=== PATIENT | female | born 1935 | race Caucasian/White ===

== ENCOUNTER 2016-11-05 18:12 | Inpatient (IN) ==
[2016-11-05] MEDS ORDERED: diphenhydrAMINE 50 MG/1 ML VIAL ONE (18:22)
[2016-11-05] MEDS ORDERED: FUROSEMIDE 40 MG/4 ML VIAL ONE (18:22)
[2016-11-05] MEDS ORDERED: FUROSEMIDE 20 MG/2 ML VIAL ONE (18:22)
[2016-11-05] MEDS ORDERED: FAMOTIDINE 20 MG/2 ML VIAL IV ONE (18:22)
[2016-11-05] MEDS ORDERED: methylPREDNISolone SOD SUC 125 MG/2 ML VIAL ONE (18:22)
[2016-11-05] MEDS ORDERED: FUROSEMIDE 100 MG/10 ML VIAL IV STA (18:25)
[2016-11-05] MEDS ORDERED: diphenhydrAMINE 50 MG/1 ML VIAL IV STA ×2 (18:25→18:26)
[2016-11-05] MEDS ORDERED: FAMOTIDINE 20 MG/2 ML VIAL IV STA ×2 (18:25→18:26)
[2016-11-05] MEDS ORDERED: LEVOFLOXACIN INJ 500 MG in PREMIX 1 EACH IV STA (18:25)
[2016-11-05] MEDS ORDERED: ASPIRIN 325 MG TABLET PO STA (18:25)
[2016-11-05] MEDS ORDERED: ONDANSETRON 4 MG/2 ML VIAL IV STA (18:25)
[2016-11-05] MEDS ORDERED: FUROSEMIDE 40 MG/4 ML VIAL IV STA (18:26)
[2016-11-05] MEDS ORDERED: methylPREDNISolone SOD SUC 125 MG/2 ML VIAL IV STA (18:26)
[2016-11-05] MEDS ORDERED: ALBUTEROL 2.5 MG/3 ML NEB RESP TX SCH (18:30)
--- NOTE | 2016-11-05 18:37 | EKG Report ---
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
[2016-11-05 18:43] LABS: Basophils % 0.1 % (0.0-0.8); Hematocrit 39.3 VOL% (35.7-47.0); Hemoglobin 12.4 GM/DL (12.0-16.0); Immature Granulocytes % 0.5 %; Immature Granulocytes Absolute 0.07 #; Lymphocytes # 1.3 10*3/uL (1.4-4.0); Lymphocytes % 9.2 % (21.3-54.2); Mean Corpuscular HGB Conc 31.6 GM/DL (32-36); Mean Corpuscular Hemoglobin 27 PG (27-34); Mean Corpuscular Volume 84.9 FL (87-102); Monocytes # 0.8 10*3/uL (0.11-0.8); Monocytes % 5.7 % (1.7-12.7); Neutrophils # 11.8 10*3/uL (1.4-7.4); Neutrophils % 84.5 % (38.7-73.9); Platelet Count 183 10*3/uL (130-400); Red Blood Count 4.63 10*6/uL (3.8-5.5); Red Cell Distribution Width 14.8 % (9.3-17.3)
[2016-11-05] MEDS ORDERED: LEVOFLOXACIN INJ 100 ML IV ONE (18:43)
[2016-11-05] MEDS ORDERED: ONDANSETRON 4 MG/2 ML VIAL ONE (18:43)
[2016-11-05] MEDS ORDERED: ASPIRIN 325 MG TABLET ONE (18:43)
[2016-11-05 18:52] LABS: ABG Base Excess 2.5 MMOL/L (-2.5-2.5); ABG HCO3 30.1 MMOL/L (20-26); ABG Oxygen Saturation 95.9 % (95-100); ABG PCO2 60.1 MM HG (35-48); ABG PH 7.317 (7.35-7.45); ABG PO2 89.6 MM HG (80-95); ABG TCO2 31.9 MMOL/L (23-27)
[2016-11-05 18:53] LABS: Apearance,Urine CLEAR (Clear); Bacteria,Urine Occasional /HPF (Few); Bilirubin,Urine Negative (Negative); Blood, Urine Negative (Negative); Glucose,Urine (UA) Negative (Negative); Hyaline Casts,Urine 34 /LPF (0-3); INR 1.5; Ketones,Urine Negative (Negative); Mucus,Urine Occasional /LPF (Occasional); Nitrite,Urine Negative (Negative); PT Patient Result 16.7 SECS; Protein,Urine Negative; RBC,Urine <1 /HPF (0-4); Squamous Epithelial Cell,Urine Occasional /HPF (0-10); Urine Color Yellow (Yellow); Urine Specific Gravity 1.009 (1.001-1.035); Urine Urobilinogen < 2.0 EU/DL (0.2-1.0); WBC,Urine 1 /HPF (0-6)
--- NOTE | 2016-11-05 19:00 | XRay Report ---
XR chest 1V portable Indication: Shortness of breath Comparison: Chest x-ray 08/01/2016 Technique: Portable AP chest was performed. Findings: Respiratory apparatus overlies the right chest. Compared to the previous study, there's been interval clearing of the lung bases. Coarsened interstitial markings noted bilaterally likely in part chronic. Pulmonary arteries appear enlarged suggesting possible pulmonary arterial hypertension. Heart size is stable and appears upper limits of normal in size. Bones and soft tissues demonstrate no acute findings. Enchondroma within the right humeral neck is suggested and rotator cuff tear on the right is suggested. Impression: 1. Improved appearance the lung bases since comparison study. Coarsened bilateral interstitial markings likely in part chronic. No specific evidence of acute pathology is demonstrated within the chest. 11/05/2016 6:56 PM PROCEDURE INTERPRETED AT [facility] DEPARTMENT OF RADIOLOGY Final Report Signed by: Dr. Roberto Sanderson
--- NOTE | 2016-11-05 19:26 | Emergency Department Note ---
I, Lisa Palacios, am scribing for, and in the presence of, Slim Segal MD 18:38. ILuzma Charles R, MD, personally performed the services described in this documentation, ascribed by Lisa Palacios in my presence, and it is both accurate and complete 922 . Arrival - Arrival Chief Complaint: Shortness of Breath ED Nursing Triage Note: c/o sob about 1630 today. cough for a week. 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 pt has hives all over body Mode of Arrival: Stretcher Limitations: No Limitations Source: Patient, EMS Time Seen by Provider: 11/05/16 18:19 - History of Present Illness HPI Narrative: Pt is a 80 y/o female that was brought to ED via EMS with c/o SOB that began a few hours ago. Pt has associated sxs of left eye swelling, bilateral leg tenderness, fever, cough, wheezing, and allergic welts diffusely. Pt states she used to smoke years ago but denies any history of DM or fluid ever being taken off body. Doctor had code talk with pt if intubation is needed, pt agrees but only at last resort. No other complaints/pain in ED. Pt has PMHx of HTN, CHF, SC , Thyroid disorder, RA, Obstructive sleep apnea, COPD, Pneumonia, HEP, Osteoporosis, anemia, and reproductive CA. Onset (ago): day(s) Consistency: constant Quality: other Allergies/Adverse Reactions: Allergies Allergy/AdvReac Type Severity Reaction Status Date / Time meperidine [From Demerol] Allergy ITCHING Verified 11/27/15 13:32 Penicillins Allergy RASH Verified 11/27/15 13:32 Sulfa (Sulfonamide Allergy RASH Verified 11/27/15 13:32 Antibiotics) tetanus toxoid, adsorbed Allergy ANAPHYLAXIS Verified 11/27/15 13:32 hydrocodone [From Lortab] AdvReac Nausea Verified 11/27/15 13:32 morphine AdvReac Hypotension Verified 11/27/15 13:32 pentazocine [From Talwin] AdvReac Hallucinati Verified 11/27/15 13:32 ng Home Medications: Home Medications Medication Instructions Recorded Confirmed Type Albuterol Sulfate [Ventolin HFA] 2 puff INH Q4H PRN 11/27/15 11/05/16 History Omeprazole [Prilosec] 20 mg PO DAILY 11/27/15 11/05/16 History Polyvinyl Alcohol 1.4% Oph Saray 2 drop BOTH EYES Q6H PRN 11/27/15 11/05/16 History [Artificial Tears Oph Soln] Propylthiouracil 50 mg PO BID 11/27/15 11/05/16 History Albuterol/Ipratropium Neb [Duoneb] 3 ml RESP TX RT Q6H PRN 12/13/15 11/05/16 History Ondansetron Tab [Zofran Tab] 4 mg PO Q4HR PRN 12/13/15 11/05/16 History Magnesium Chloride [Slow Mag] 64 mg PO DAILY 12/14/15 11/05/16 History Aclidinium [place] [Tudorza 400 mcg INH BID 04/12/16 11/05/16 History Pressair] Benzonatate [Tessalon] 100 mg PO Q4HR PRN 04/12/16 11/05/16 History Ergocalciferol [Drisdol] 50,000 unit PO Q7D 04/12/16 11/05/16 History Fluticasone/Salmeterol 500-50 1 puff INH BID 04/12/16 11/05/16 History [Advair 500-50] Furosemide Tab [Lasix Tab] 40 mg PO BID DIURETIC 04/12/16 11/05/16 History Ibuprofen 200 mg PO Q4HR PRN 04/12/16 11/05/16 History Magnesium Hydroxide Susp [Milk of 30 ml PO Q12HR PRN 04/12/16 11/05/16 History Magnesia] Multivitamin [One Daily] 1 each PO DAILY 04/12/16 11/05/16 History Skin Healing Oint (Aquaphor) 1 applic TOP DAILY 04/12/16 11/05/16 History [Aquaphor] Spironolactone [Aldactone] 50 mg PO DAILY 04/12/16 11/05/16 History Warfarin [Coumadin] 3 mg PO DAILY@1800 04/24/16 11/05/16 History Aspirin Tab 325 mg PO DAILY tablet 04/29/16 11/05/16 Rx Atorvastatin [Lipitor] 20 mg PO BEDTIME tablet 04/29/16 11/05/16 Rx Metoprolol Tartrate Tab [Lopressor 12.5 mg PO BID tablet 04/29/16 11/05/16 Rx Tab] oxyCODONE/ACETAMINOPHEN 5-325 1 tablet PO Q8HR PRN #10 tablet 04/30/16 11/05/16 Rx [Percocet 5-325] traMADol TAB [Ultram] 50 mg PO Q6H PRN #10 04/30/16 11/05/16 Rx Levofloxacin Tab [Levaquin Tab] 500 mg PO Q48H #5 tablet 08/03/16 11/05/16 Rx Review of System - Review of System 12 point system: reviewed and no additional remarkable complaints except as stated - Review of System Constitutional: Present: fever. Absent: chills Respiratory: Present: cough, respiratory distress, wheezing Cardiovascular: Absent: chest pain Gastrointestinal: Absent: abdominal pain, nausea, vomiting Musculoskeletal: Present: leg pain (tenderness bilaterally ). Absent: arm pain , back pain, neck pain Skin: Present: rash (allergic welts diffusely) Neurological: Absent: headache Psychiatric: Absent: anxiety Medical,Surgical,& Family Hx - Medical History Cardio: History of: CHF, Hypertension, [place] (per pt in s) Neurology: No history of: Seizures HEENT: History of: Eye Problem (GLASSES) Endocrine: History of: Thyroid Disorder Rheumatology: History of;: Rheumatoid Arthritis Respiratory: History of: Bronchitis, COPD, Obstructive Sleep Apnea, Pneumonia, Respiratory Problems Renal: History of: Renal Problems (left nephrectomy) Gastrointestinal: History of: GERD, Hemorrhoids (MILD), Liver Problems (, HEP), GI Problems (hernia) Musculoskeletal: History of: Back/Neck Problems, Osteoporosis, Musculoskeletal Problems (severe edema.) Hematology: History of: Anemia (PAST HISTORY), Clotting Problems (history of lower extremity DVT) Reproductive: History of: Reproductive Cancer Other: History of: Anesthesia Reactions (N/V), Cancer - Surgical History Thoracic Surgeries: Patient denies;: Organ Transplant, Lobectomy Neurologic Surgeries: Patient denies: Neurologic Surgery HEENT Surgeries: Surgical HX of: Eye Surgery (CATARACT BILATERAL) Abdominal Surgeries: Surgical HX of: Abdominal Surgery, Appendectomy, Cholecystectomy, Hernia Repair Reproductive Surgeries: Surgical HX of;: Hysterectomy - Family History Family History: Reports;: Family Heart Disease - Social History Smoking Status: Never smoker Frequency of Alcohol Use: None Type of Drug Use: None Exam Vital Signs: Vital Signs Temperature 100.7 F H 01/03/17 18:12 Pulse Rate 120 H 11/05/16 18:48 Respiratory Rate 35 H 11/05/16 18:48 Blood Pressure 141/78 11/05/16 18:46 O2 Sat by Pulse Oximetry 96 11/05/16 18:46 - General General appearance: alert, in distress (respiratory) - Head Head exam: Present: atraumatic, normocephalic - Eye Eye exam: Present: PERRL, EOMI, conjunctival injection (left eye), other (left eye erythema, crusted, and matting) - ENT ENT exam: Present: mucous membranes moist. Absent: mucous membranes dry - Neck Neck exam: Present: full ROM. Absent: tenderness - Chest Chest inspection: Present: symmetric chest wall rise. Absent: tenderness - Respiratory Respiratory exam: Present: accessory muscle use, rales, respiratory distress, rhonchi, wheezes, other (tachypnic). Absent: normal lung sounds bilaterally - Cardiovascular Cardiovascular exam: Present: tachycardia, irregular rhythm. Absent: normal heart sounds - Abdominal Exam Abdominal exam: Present: soft. Absent: tenderness - Extremities Exam Extremities exam: Present: full ROM, tenderness, pedal edema (bilaterally 2+) - Back Exam Back exam: Present: full ROM. Absent: tenderness - Neurological Exam Neurological exam: Present: alert, oriented X3, CN II-XII intact. Absent: motor sensory deficit - Psychiatric Psychiatric exam: Present: normal affect, normal mood - Skin Skin exam: Present: warm, dry, rash (allergic welts diffusely), other (pain sores to all extremeties) Course - Reevaluation(s) Reevaluation #1: Patient reevaluated. Patient's whelps have gotten better concerning the allergic reaction. Patient is still in wrist or distress. I spoke to patient about intubation she said not yet she wants to go as long she can to she can breathe on her own before she was replaced on life support. I told her that she most likely will require life-support O on aspirin yesterday status seems to demise Time: 19:51 - Consultations Consultation #1: Dr. Dias will come admit patient he is also aware that she's refusing intubation at this point right now but is open to to intubation once she gets that point per patient Time: 19:53 Results - Labs CBC & BMP: 11/05/16 18:35 11/05/16 18:35 Lab Results: I have reviewed the patients labs Labs: Laboratory Tests 11/05/16 18:35 WBC 14.0 H MCV 84.9 L MCHC 31.6 L Neut % (Auto) 84.5 H Lymph % (Auto) 9.2 L Neut # (Auto) 11.8 H Lymph # (Auto) 1.3 L Critical Care Time Critical Care Time: Yes Total Critical Care Time: 60 Disposition Clinical Impression: Community acquired pneumonia, Acute exacerbation of chronic obstructive airways disease, Generalized weakness, Congestive heart failure, Respiratory failure Case discussed with: patient Disposition: Still a Patient Condition: Critical Time of Disposition: 19:55
[2016-11-05 19:34] LABS: Alanine Aminotransferase 22 U/L (13-56); Albumin 4.3 G/DL (3.4-5.0); Alkaline Phosphatase 71 U/L (45-117); Aspartate Amino Transferase 19 U/L (0-37); Blood Urea Nitrogen 7 MG/DL (7-18); Calcium 9.3 MG/DL (8.5-10.1); Glucose 88 MG/DL (74-106); Magnesium 2.2 MG/DL (1.8-2.4); Osmolality,Calculated 277.3 MOS/KG (273-304); Potassium 4.2 MMOL/L (3.5-5.1); Sodium 141 MMOL/L (136-145); Total Protein 7.5 G/DL (6.4-8.3); Troponin I Only < 0.015 NG/ML (0.00-0.045)
[2016-11-05] MEDS ORDERED: SODIUM CHLORIDE 0.9% 2,500 ML IV ONE (20:09)
--- NOTE | 2016-11-05 20:22 | Hospitalist History & Physical ---
Assessment and Plan - Time spent with patient Time spent with patient: Greater than 30 minutes (1) Sepsis Status: Acute Assessment and plan: Ms Sosa does meet systemic inflammatory response syndrome criteria and has a suspected infection with conjunctivitis, possible early cellulitis right lower extremity, acute bronchitis versus early pneumonitis. Lactic acid is pending. We will culture, hydrate, provide O2 supplementation, nebulizer therapy, begin Broad-spectrum IV antibiotics empirically. Further workup will be performed based on patient's clinical response and results of the pending data base. Current Visit: Yes (2) Acute exacerbation of chronic obstructive airways disease Status: Acute Assessment and plan: Patient had an acute exacerbation of COPD. She will be cultured, placed on BiPAP therapy, begin empiric IV antibiotics as well as IV corticosteroids. Current Visit: Yes (3) Respiratory failure Status: Acute Assessment and plan: Patient has an acute hypercapnic respiratory failure. We will place her on BiPAP and provide antibiotics, corticosteroids, O2 supplementation, nebulizer therapy. At this time she does not want to be intubated but if her condition worsens she would like this to be performed as a last resort. I discussed in detail however she is adamant that these are her wishes. Current Visit: Yes (4) Conjunctivitis Status: Acute Assessment and plan: We'll culture and begin ophthalmic antibiotic drops. Current Visit: Yes (5) Hyperthyroidism Status: Chronic Assessment and plan: She is hyperthyroidism and is been treated with PTU. We'll obtain T4 and TSH. Current Visit: Yes (6) History of DVT (deep vein thrombosis) Status: Chronic Assessment and plan: She has a history of remote DVT and is on chronic anticoagulation therapy. Her INR is subtherapeutic at this time. We'll begin Lovenox therapy and Coumadin until INR greater than 2 which time Lovenox will be discontinued. Current Visit: No (7) Chronic anticoagulation Status: Acute Current Visit: No (8) Congestive heart failure Status: Chronic Assessment and plan: She has a history of congestive heart failure however I'm unable to locate any records as to her prior evaluation and/or ejection fraction. She will be treated for possible sepsis and will be hydrated cautiously. She has no evidence of acute congestive heart therapy this time clinically nor by chest x- ray. Current Visit: No History of Present Illness Chief complaint: short of breath History of present illness: Ms. Sosa is a 80 year old female resident of a detention who states that she has chronic shortness of breath but worsened today. She has had a cough productive of some minimal foamy phlegm yellowish in color. She has had some low-grade fever but denies any chills. She denies any chest pain abdominal pain , nausea, vomiting, diarrhea, constipation, melena, hematochezia, hematemesis, dysuria, hematuria, urinary frequency urgency or incontinence, seizures, syncope , focal motor weakness or paresthesias. She states that she does wear oxygen at the detention and has nebulizer therapy. She does not have a chronic indwelling Owens catheter. We did discuss resuscitation status with her and at this time she states that she would like all measures but will discuss further with her stepchildren. Home Medications Medication Instructions Recorded Confirmed Type Albuterol Sulfate [Ventolin HFA] 2 puff INH Q4H PRN 11/27/15 11/05/16 History Omeprazole [Prilosec] 20 mg PO DAILY 11/27/15 11/05/16 History Polyvinyl Alcohol 1.4% Oph Saray 2 drop BOTH EYES Q6H PRN 11/27/15 11/05/16 History [Artificial Tears Oph Soln] Propylthiouracil 50 mg PO BID 11/27/15 11/05/16 History Albuterol/Ipratropium Neb [Duoneb] 3 ml RESP TX RT Q6H PRN 12/13/15 11/05/16 History Ondansetron Tab [Zofran Tab] 4 mg PO Q4HR PRN 12/13/15 11/05/16 History Magnesium Chloride [Slow Mag] 64 mg PO DAILY 12/14/15 11/05/16 History Aclidinium [place] [Tudorza 400 mcg INH BID 04/12/16 11/05/16 History Pressair] Benzonatate [Tessalon] 100 mg PO Q4HR PRN 04/12/16 11/05/16 History Ergocalciferol [Drisdol] 50,000 unit PO Q7D 04/12/16 11/05/16 History Fluticasone/Salmeterol 500-50 1 puff INH BID 04/12/16 11/05/16 History [Advair 500-50] Furosemide Tab [Lasix Tab] 40 mg PO BID DIURETIC 04/12/16 11/05/16 History Ibuprofen 200 mg PO Q4HR PRN 04/12/16 11/05/16 History Magnesium Hydroxide Susp [Milk of 30 ml PO Q12HR PRN 04/12/16 11/05/16 History Magnesia] Multivitamin [One Daily] 1 each PO DAILY 04/12/16 11/05/16 History Skin Healing Oint (Aquaphor) 1 applic TOP DAILY 04/12/16 11/05/16 History [Aquaphor] Spironolactone [Aldactone] 50 mg PO DAILY 04/12/16 11/05/16 History Warfarin [Coumadin] 3 mg PO DAILY@1800 04/24/16 11/05/16 History Aspirin Tab 325 mg PO DAILY tablet 04/29/16 11/05/16 Rx Atorvastatin [Lipitor] 20 mg PO BEDTIME tablet 04/29/16 11/05/16 Rx Metoprolol Tartrate Tab [Lopressor 12.5 mg PO BID tablet 04/29/16 11/05/16 Rx Tab] oxyCODONE/ACETAMINOPHEN 5-325 1 tablet PO Q8HR PRN #10 tablet 04/30/16 11/05/16 Rx [Percocet 5-325] traMADol TAB [Ultram] 50 mg PO Q6H PRN #10 04/30/16 11/05/16 Rx Levofloxacin Tab [Levaquin Tab] 500 mg PO Q48H #5 tablet 08/03/16 11/05/16 Rx Allergies Allergy/AdvReac Type Severity Reaction Status Date / Time meperidine [From Demerol] Allergy ITCHING Verified 11/27/15 13:32 Penicillins Allergy RASH Verified 11/27/15 13:32 Sulfa (Sulfonamide Allergy RASH Verified 11/27/15 13:32 Antibiotics) tetanus toxoid, adsorbed Allergy ANAPHYLAXIS Verified 11/27/15 13:32 hydrocodone [From Lortab] AdvReac Nausea Verified 11/27/15 13:32 morphine AdvReac Hypotension Verified 11/27/15 13:32 pentazocine [From Talwin] AdvReac Hallucinati Verified 11/27/15 13:32 ng Medical,Surgical,& Family Hx - Medical History Cardio: History of: CHF, Hypertension, [place] (per pt in 1970's) Neurology: No history of: Seizures HEENT: History of: Eye Problem (GLASSES) Endocrine: History of: Thyroid Disorder Rheumatology: History of;: Rheumatoid Arthritis Respiratory: History of: Bronchitis, COPD, Obstructive Sleep Apnea, Pneumonia, Respiratory Problems Renal: History of: Renal Problems (left nephrectomy) Gastrointestinal: History of: GERD, Hemorrhoids (MILD), Liver Problems (1970'S, HEP), GI Problems (hernia) Musculoskeletal: History of: Back/Neck Problems, Osteoporosis, Musculoskeletal Problems (severe edema.) Hematology: History of: Anemia (PAST HISTORY), Clotting Problems (history of lower extremity DVT) Reproductive: History of: Reproductive Cancer Other: History of: Anesthesia Reactions (N/V), Cancer - Surgical History Thoracic Surgeries: Patient denies;: Organ Transplant, Lobectomy Neurologic Surgeries: Patient denies: Neurologic Surgery HEENT Surgeries: Surgical HX of: Eye Surgery (CATARACT BILATERAL) Abdominal Surgeries: Surgical HX of: Abdominal Surgery, Appendectomy, Cholecystectomy, Hernia Repair Reproductive Surgeries: Surgical HX of;: Hysterectomy - Family History Family History: Reports;: Family Heart Disease - Social History Smoking Status: Former smoker Have you smoked in the last 12 months: No Frequency of Alcohol Use: None Type of Drug Use: None Lives With:: detention resident 12 point system: reviewed and no additional remarkable complaints except as stated Exam - Constitutional Vitals: Period Temp Pulse Resp BP Sys/Tracey Pulse Ox Last 24 Hr 100.7 F-100.7 F 120-153 28-35 124-141/78-80 89-96 General appearance: mild distress - Head Head exam: Present: normocephalic, atraumatic - Eye Eye exam: Present: other (he does appear equal and round and extraocular muscles intact. She does have some mild edema of her left upper lid and there is yellow crusty discharge in the lashes and some purulent yellow drainage) - ENT ENT exam: Present: normal oropharynx - Neck Neck exam: Absent: lymphadenopathy, meningismus, tenderness, thyromegaly - Respiratory Respiratory exam: Present: decreased breath sounds. Absent: accessory muscle use, rales, rhonchi, wheezes - Cardiovascular Cardiovascular exam: Present: regular rate and rhythm, tachycardia. Absent: gallop, JVD, rubs, systolic murmur - GI/Abdominal GI/Abdominal exam: Present: normal bowel sounds, soft. Absent: distended, mass , tenderness, rebound - Extremities Exam Extremities exam: Present: edema (she has trace edema of her lower strength is bilaterally), other (she has a dressing on her right lower extremity members skin with some minimal blistering and erythema but no drainage, fluctuance, discharge; she also has a dressing over her left lower extremity from prior excision of skin carcinoma). Absent: calf tenderness - Back Exam Back exam: Present: normal inspection - Neurological Exam Neurological exam: Present: alert, oriented X3, CN II-XII intact. Absent: motor sensory deficit - Psychiatric Psychiatric exam: Present: normal affect, normal mood. Absent: agitated, anxious - Skin Skin exam: Present: warm, dry. Absent: petechiae Results - Labs CBC & BMP: 11/05/16 18:35 11/05/16 18:35 Lab Results: I have reviewed the past 24 hour labs - EKG EKG shows: tachycardia - Impressions EKG appears to be sinus tachycardia without acute change - Diagnostic Findings Procedure: Chest x-ray: report reviewed by me Sepsis - Sepsis Classification of Sepsis: Sepsis - Physical Exam Respiratory exam: decreased breath sounds Capillary Refill: Less Than 3 Seconds Peripheral pulses: Radial (L): 5+, Radial (R): 5+ Cardiovascular exam: tachycardia Skin exam: normal color
[2016-11-05 20:49] LABS: Free T4 (Free Thyroxine) 1.36 NG/DL (0.76-1.46); Thyroid Stimulating Hormone 4.93 uIU/ml (0.358-3.74)
[2016-11-05] MEDS ORDERED: ONDANSETRON 4 MG/2 ML VIAL IV PRN (22:21)
[2016-11-05] MEDS ORDERED: MAGNESIUM HYDROXIDE SUSP 30 ML UDCUP PO PRN (22:21)
[2016-11-05] MEDS ORDERED: CIPROFLOXACIN 0.3% OPH SOLN 2.5 ML BOTTLE LEFT EYE SCH (22:21)
[2016-11-05] MEDS ORDERED: ALBUTEROL/IPRATROPIUM 3 ML NEB RESP TX PRN (22:21)
[2016-11-05] MEDS ORDERED: ACETAMINOPHEN 325 MG TABLET PO PRN (22:21)
[2016-11-05] MEDS: AZTREONAM 2,000 MG in SODIUM CHLORIDE 0.9% 100 ML IV SCH (23:19)
[2016-11-05] MEDS: ENOXAPARIN 40 MG/0.4 ML SYRINGE SUBCUT SCH (23:19)
[2016-11-05] MEDS: methylPREDNISolone SOD SUC 125 MG/2 ML VIAL IV SCH (23:20)
[2016-11-05] MEDS: ATORVASTATIN 20 MG TABLET PO SCH (23:20)
[2016-11-05] MEDS: METOPROLOL TARTRATE 25 MG TABLET PO SCH (23:20)
[2016-11-05] MEDS: FLUTICASONE/SALMETEROL 500-50 DISKUS 14 DOSE INH SCH (23:22)
[2016-11-05] MEDS: PROPYLTHIOURACIL 50 MG TABLET PO SCH (23:56)
[2016-11-05] MEDS: CIPROFLOXACIN 0.3% OPH SOLN 2.5 ML BOTTLE LEFT EYE SCH (23:59)
[2016-11-06] MEDS ORDERED: VANCOMYCIN INJ 1,000 MG in SODIUM CHLORIDE 0.9% 250 ML IV SCH
[2016-11-06] MEDS: ALBUTEROL/IPRATROPIUM 3 ML NEB RESP TX SCH ×7 (00:13→23:34)
[2016-11-06] MEDS: CIPROFLOXACIN 0.3% OPH SOLN 2.5 ML BOTTLE LEFT EYE SCH ×12 (01:11→23:44)
[2016-11-06] MEDS: SODIUM CHLORIDE 0.9% 1,000 ML IV SCH ×4 (01:11→21:09)
[2016-11-06] MEDS: AZTREONAM 2,000 MG in SODIUM CHLORIDE 0.9% 100 ML IV SCH ×4 (04:47→23:50)
[2016-11-06 05:27] LABS: Hematocrit 32.9 VOL% (35.7-47.0); Hemoglobin 10.1 GM/DL (12.0-16.0); Immature Granulocytes % 0.5 %; Immature Granulocytes Absolute 0.04 #; Lymphocytes # 0.3 10*3/uL (1.4-4.0); Mean Corpuscular HGB Conc 30.7 GM/DL (32-36); Mean Corpuscular Hemoglobin 26 PG (27-34); Mean Corpuscular Volume 85.5 FL (87-102); Monocytes # 0.1 10*3/uL (0.11-0.8); Monocytes % 1.6 % (1.7-12.7); Neutrophils # 7.7 10*3/uL (1.4-7.4); Neutrophils % 93.9 % (38.7-73.9); Platelet Count 121 10*3/uL (130-400); Red Blood Count 3.85 10*6/uL (3.8-5.5); Red Cell Distribution Width 14.9 % (9.3-17.3); White Blood Count 8.2 10*3/uL (4.5-13.71)
[2016-11-06 05:35] LABS: INR 1.8; PT Patient Result 20.3 SECS
[2016-11-06 05:51] LABS: Band Neutrophils 6 % (0-10); Hypochromasia 1+; Lymphocytes 3 % (20-55); Segmented Neutrophils 88 % (50-85); Total Cells Counted 100
[2016-11-06 05:52] LABS: Acanthocytes Few; Microcytosis 1+; Ovalocytes Slight; Platelet Estimate Adequate
[2016-11-06 06:08] LABS: Calcium 7.6 MG/DL (8.5-10.1); Osmolality,Calculated 296.3 MOS/KG (273-304); Potassium 3.8 MMOL/L (3.5-5.1)
[2016-11-06] MEDS: methylPREDNISolone SOD SUC 125 MG/2 ML VIAL IV SCH ×4 (06:27→23:41)
[2016-11-06 09:01] LABS: Allen Test Positive; Pt O2 Delivery Device BIPAP
[2016-11-06 09:02] LABS: ABG Base Excess 1.3 MMOL/L (-2.5-2.5); ABG HCO3 25.5 MMOL/L (20-26); ABG Oxygen Saturation 93.1 % (95-100); ABG PCO2 48.9 MM HG (35-48); ABG PH 7.356 (7.35-7.45); ABG PO2 65.3 MM HG (80-95)
[2016-11-06] MEDS: METOPROLOL TARTRATE 25 MG TABLET PO SCH ×2 (09:14→22:01)
[2016-11-06] MEDS: MAGNESIUM CHLORIDE 64 MG TABLET PO SCH (09:15)
[2016-11-06] MEDS: PANTOPRAZOLE 40 MG TABLET PO SCH (09:15)
[2016-11-06] MEDS: ASPIRIN 325 MG TABLET PO SCH (09:15)
[2016-11-06] MEDS: MULTIVITAMIN (CENTRUM) TABLET PO SCH (09:15)
[2016-11-06] MEDS: FLUTICASONE/SALMETEROL 500-50 DISKUS 14 DOSE INH SCH ×2 (09:16→22:05)
[2016-11-06] MEDS: PROPYLTHIOURACIL 50 MG TABLET PO SCH ×2 (09:16→22:06)
--- NOTE | 2016-11-06 09:45 | Hospitalist Progress Note ---
Assessment and Plan (1) SIRS (systemic inflammatory response syndrome) Status: Acute Assessment and plan: likely has underlying early cellulitis, continue current abx. Current Visit: Yes (2) Anemia in chronic kidney disease Status: Chronic Current Visit: No (3) Chronic anticoagulation Status: Acute Current Visit: No (4) Conjunctivitis Status: Acute Current Visit: Yes Qualifiers: Conjunctivitis type: acute Acute conjunctivitis type: bacterial (5) COPD (chronic obstructive pulmonary disease) Status: Chronic Assessment and plan: continue steroids, DuoNebs, abx, goal is to wean from Bipap. Current Visit: No Qualifiers: COPD type: COPD with acute exacerbation Qualified Code(s): J44.1 - Chronic obstructive pulmonary disease with (acute) exacerbation Hospitalist: Subjective Interval history: 80-year-old female admitted overnight with systemic inflammatory response syndrome possible early cellulitis. She also has a history of COPD listens respiratory distress with hypercapnia. She is currently on BiPAP states she feels much better. Exam - Constitutional Vitals: Period Temp Pulse Resp BP Sys/Tracey Pulse Ox Last 24 Hr 97.6 F-98.1 F 94-156 17-29 93-131/53-96 86-98 General appearance: no acute distress Exam: elderly female in Bipap states she is feeling better - Head Head exam: Present: normocephalic, atraumatic - Eye Pupils: Present: KEEGAN - ENT ENT exam: Present: normal oropharynx - Respiratory Respiratory exam: Present: clear to auscultation bilaterally - Cardiovascular Cardiovascular exam: Present: tachycardia - GI/Abdominal GI/Abdominal exam: Present: hypoactive bowel sounds, soft - Neurological Exam Neurological exam: Present: alert, oriented X3, CN II-XII intact - Psychiatric Psychiatric exam: Present: normal affect, normal mood - Skin Skin exam: Present: warm, dry Results - Labs CBC & BMP: 11/06/16 05:20 11/06/16 05:20 Specialty Discharge - Follow Up or Referrals - Discharge Medications No Action Propylthiouracil 50 mg PO BID Polyvinyl Alcohol 1.4% Oph Saray [Artificial Tears Oph Soln] 2 drop BOTH EYES Q6H PRN PRN Reason: dry eyes Omeprazole [Prilosec] 20 mg PO DAILY Albuterol Sulfate [Ventolin HFA] 2 puff INH Q4H PRN PRN Reason: Shortness Of Breath/Wheezing Albuterol/Ipratropium Neb [Duoneb] 3 ml RESP TX RT Q6H PRN PRN Reason: Shortness Of Breath/Wheezing Ondansetron Tab [Zofran Tab] 4 mg PO Q4HR PRN PRN Reason: Nausea Magnesium Chloride [Slow Mag] 64 mg PO DAILY Magnesium Hydroxide Susp [Milk of Magnesia] 30 ml PO Q12HR PRN PRN Reason: Constipation Aclidinium [place] [Tudorza Pressair] 400 mcg INH BID Ergocalciferol [Drisdol] 50,000 unit PO Q7D Skin Healing Oint (Aquaphor) [Aquaphor] 1 applic TOP DAILY Multivitamin [One Daily] 1 each PO DAILY Furosemide Tab [Lasix Tab] 40 mg PO BID DIURETIC Ibuprofen 200 mg PO Q4HR PRN PRN Reason: Fever Benzonatate [Tessalon] 100 mg PO Q4HR PRN PRN Reason: Cough Spironolactone [Aldactone] 50 mg PO DAILY Fluticasone/Salmeterol 500-50 [Advair 500-50] 1 puff INH BID Warfarin [Coumadin] 3 mg PO DAILY@1800 Aspirin Tab 325 mg PO DAILY tablet Atorvastatin [Lipitor] 20 mg PO BEDTIME tablet Metoprolol Tartrate Tab [Lopressor Tab] 12.5 mg PO BID tablet oxyCODONE/ACETAMINOPHEN 5-325 [Percocet 5-325] 1 tablet PO Q8HR PRN #10 tablet PRN Reason: Pain traMADol TAB [Ultram] 50 mg PO Q6H PRN #10 PRN Reason: Pain Levofloxacin Tab [Levaquin Tab] 500 mg PO Q48H #5 tablet
[2016-11-06] MEDS: SKIN HEALING OINT (AQUAPHOR) 50 GM TUBE TOP SCH (11:21)
[2016-11-06] MEDS: WARFARIN 3 MG TABLET PO SCH (17:25)
[2016-11-06] MEDS ORDERED: NITROGLYCERIN SL 0.4 MG TABLET SL ONE (19:39)
--- NOTE | 2016-11-06 20:14 | XRay Report ---
XR chest 1V Indication: Chest pain. Comparison: Chest x-ray 11/05/2016. Chest x-ray 04/24/2016. Technique: Portable AP chest was performed. Findings: Airspace stranding in the right cardiophrenic angle could reflect evidence of atelectasis or infection. Coarsened interstitial markings in the mid chest have changed little since April of 2016. The heart size is stable. Hilar structures demonstrate no significant abnormalities. The upper lungs are clear. Bones and soft tissues demonstrate no significant abnormalities. Impression: 1. Infectious process right cardiophrenic angle is not excluded. Followup is recommended. 11/06/2016 8:11 PM PROCEDURE INTERPRETED AT [facility] DEPARTMENT OF RADIOLOGY Final Report Signed by: Dr. Roberto Sanderson
[2016-11-06] MEDS: ATORVASTATIN 20 MG TABLET PO SCH (22:02)
[2016-11-06] MEDS: oxyCODONE/ACETAMINOPHEN 5-325 MG TABLET PO PRN (22:03)
[2016-11-06] MEDS: POLYVINYL ALCOHOL 1.4% OPH SOLN 15 ML BOTTLE BOTH EYES PRN (22:05)
[2016-11-06] MEDS: ENOXAPARIN 40 MG/0.4 ML SYRINGE SUBCUT SCH (23:40)
[2016-11-07] MEDS ORDERED: NITROGLYCERIN SL 0.4 MG TABLET SL PRN (00:27)
[2016-11-07] MEDS: CIPROFLOXACIN 0.3% OPH SOLN 2.5 ML BOTTLE LEFT EYE SCH ×12 (01:17→22:51)
--- NOTE | 2016-11-07 01:34 | EKG Report ---
Stationary ECG Study 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
[2016-11-07] MEDS: ALBUTEROL/IPRATROPIUM 3 ML NEB RESP TX SCH ×5 (03:38→19:59)
[2016-11-07] MEDS: AZTREONAM 2,000 MG in SODIUM CHLORIDE 0.9% 100 ML IV SCH ×4 (05:06→22:48)
--- NOTE | 2016-11-07 06:29 | EKG Report ---
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
[2016-11-07] MEDS: methylPREDNISolone SOD SUC 125 MG/2 ML VIAL IV SCH ×2 (06:31→11:16)
[2016-11-07] MEDS: SODIUM CHLORIDE 0.9% 1,000 ML IV SCH (06:33)
[2016-11-07 07:21] LABS: Hematocrit 28.6 VOL% (35.7-47.0); Hemoglobin 8.6 GM/DL (12.0-16.0); Immature Granulocytes % 0.5 %; Immature Granulocytes Absolute 0.05 #; Lymphocytes # 0.4 10*3/uL (1.4-4.0); Lymphocytes % 4.1 % (21.3-54.2); Mean Corpuscular HGB Conc 30.1 GM/DL (32-36); Mean Corpuscular Hemoglobin 26 PG (27-34); Mean Corpuscular Volume 86.9 FL (87-102); Mean Platelet Volume 11.6 FL (9.6-12.0); Monocytes # 0.3 10*3/uL (0.11-0.8); Monocytes % 2.4 % (1.7-12.7); Neutrophils # 9.9 10*3/uL (1.4-7.4); Platelet Count 152 10*3/uL (130-400); Red Blood Count 3.29 10*6/uL (3.8-5.5); Red Cell Distribution Width 14.7 % (9.3-17.3); White Blood Count 10.6 10*3/uL (4.5-13.71)
[2016-11-07 07:29] LABS: Calcium 7.8 MG/DL (8.5-10.1); Osmolality,Calculated 300.6 MOS/KG (273-304)
[2016-11-07 07:32] LABS: INR 3.4
[2016-11-07 07:35] LABS: Troponin I Only < 0.015 NG/ML (0.00-0.045)
[2016-11-07 07:41] LABS: PT Patient Result 39.1 SECS
[2016-11-07 07:50] LABS: Band Neutrophils 2 % (0-10); Lymphocytes 1 % (20-55); Platelet Estimate Normal; Segmented Neutrophils 91 % (50-85); Total Cells Counted 100
[2016-11-07 07:51] LABS: Elliptocytes Few; Hypochromasia 1+
[2016-11-07] MEDS: SKIN HEALING OINT (AQUAPHOR) 50 GM TUBE TOP SCH (08:19)
[2016-11-07] MEDS: MULTIVITAMIN (CENTRUM) TABLET PO SCH (08:20)
[2016-11-07] MEDS: MAGNESIUM CHLORIDE 64 MG TABLET PO SCH (08:20)
[2016-11-07] MEDS: PANTOPRAZOLE 40 MG TABLET PO SCH (08:20)
[2016-11-07] MEDS: ASPIRIN 325 MG TABLET PO SCH (08:20)
[2016-11-07] MEDS: METOPROLOL TARTRATE 25 MG TABLET PO SCH ×2 (08:21→21:05)
[2016-11-07] MEDS: PROPYLTHIOURACIL 50 MG TABLET PO SCH ×2 (08:24→21:05)
[2016-11-07] MEDS: FLUTICASONE/SALMETEROL 500-50 DISKUS 14 DOSE INH SCH ×2 (08:27→21:04)
[2016-11-07] MEDS: methylPREDNISolone SOD SUC 40 MG/1 ML VIAL IV SCH ×2 (11:33→23:57)
--- NOTE | 2016-11-07 11:39 | Hospitalist Progress Note ---
Assessment and Plan (1) SIRS (systemic inflammatory response syndrome) Status: Acute Assessment and plan: likely has underlying early cellulitis, continue current abx. 11/07/15: I think she did have sepsis as the sources pneumonia. She does not have cellulitis. At this time will continue Aztreonam as she is clinically improving Current Visit: Yes (2) Anemia in chronic kidney disease Status: Chronic Current Visit: No (3) Chronic anticoagulation Status: Acute Current Visit: No (4) Conjunctivitis Status: Acute Current Visit: Yes Qualifiers: Conjunctivitis type: acute Acute conjunctivitis type: bacterial (5) COPD (chronic obstructive pulmonary disease) Status: Chronic Assessment and plan: continue steroids, DuoNebs, abx, goal is to wean from Bipap. Current Visit: No Qualifiers: COPD type: COPD with acute exacerbation Qualified Code(s): J44.1 - Chronic obstructive pulmonary disease with (acute) exacerbation Hospitalist: Subjective Interval history: 80-year-old female that resides in a detention that presented with weakness associated with shortness of breath and signs of sepsis. It appears she likely has a right lower lobe pneumonia. Clinically she is feeling much better today for IV antibiotics and fluids. Exam - Constitutional Vitals: Period Temp Pulse Resp BP Sys/Tracey Pulse Ox Last 24 Hr 97.1 F-98.6 F 88-131 17-24 101-152/57-94 89-100 Exam: elderly female sitting up in NAD - Head Head exam: Present: normocephalic, atraumatic - Eye Eye exam: Present: conjunctival injection (left eye) - Respiratory Respiratory exam: Present: decreased breath sounds (RLL) - Cardiovascular Cardiovascular exam: Present: regular rate and rhythm - GI/Abdominal GI/Abdominal exam: Present: normal bowel sounds, soft - Neurological Exam Neurological exam: Present: alert, oriented X3, CN II-XII intact - Psychiatric Psychiatric exam: Present: normal affect, normal mood - Skin Skin exam: Present: warm, intact Results - Labs CBC & BMP: 11/07/16 06:27 11/07/16 06:27 Specialty Discharge - Follow Up or Referrals - Discharge Medications No Action Propylthiouracil 50 mg PO BID Polyvinyl Alcohol 1.4% Oph Saray [Artificial Tears Oph Soln] 2 drop BOTH EYES Q6H PRN PRN Reason: dry eyes Omeprazole [Prilosec] 20 mg PO DAILY Albuterol Sulfate [Ventolin HFA] 2 puff INH Q4H PRN PRN Reason: Shortness Of Breath/Wheezing Albuterol/Ipratropium Neb [Duoneb] 3 ml RESP TX RT Q6H PRN PRN Reason: Shortness Of Breath/Wheezing Ondansetron Tab [Zofran Tab] 4 mg PO Q4HR PRN PRN Reason: Nausea Magnesium Chloride [Slow Mag] 64 mg PO DAILY Magnesium Hydroxide Susp [Milk of Magnesia] 30 ml PO Q12HR PRN PRN Reason: Constipation Aclidinium [place] [Tudorza Pressair] 400 mcg INH BID Ergocalciferol [Drisdol] 50,000 unit PO Q7D Skin Healing Oint (Aquaphor) [Aquaphor] 1 applic TOP DAILY Multivitamin [One Daily] 1 each PO DAILY Furosemide Tab [Lasix Tab] 40 mg PO BID DIURETIC Ibuprofen 200 mg PO Q4HR PRN PRN Reason: Fever Benzonatate [Tessalon] 100 mg PO Q4HR PRN PRN Reason: Cough Spironolactone [Aldactone] 50 mg PO DAILY Fluticasone/Salmeterol 500-50 [Advair 500-50] 1 puff INH BID Warfarin [Coumadin] 3 mg PO DAILY@1800 Aspirin Tab 325 mg PO DAILY tablet Atorvastatin [Lipitor] 20 mg PO BEDTIME tablet Metoprolol Tartrate Tab [Lopressor Tab] 12.5 mg PO BID tablet oxyCODONE/ACETAMINOPHEN 5-325 [Percocet 5-325] 1 tablet PO Q8HR PRN #10 tablet PRN Reason: Pain traMADol TAB [Ultram] 50 mg PO Q6H PRN #10 PRN Reason: Pain Levofloxacin Tab [Levaquin Tab] 500 mg PO Q48H #5 tablet
--- NOTE | 2016-11-07 12:49 | Physician Query Form ---
CLICK EDIT DOCUMENT TO SELECT QUERY ANSWER --> OK --> SIGN Ave Rivera RN Clinical Hot Dog Vender W) [phone] (f) [phone] [email or web address] PROVIDERS: Make your selection(s) from the choices in EACH section by typing an "x" and enter comments in the comment section. Please use your independent medical judgment in providing your response. This request does not imply that any particular answer is desired or expected. CLINICAL INDICATORS: (Providers should not edit this section) Based on lab results of creatinine on admission of 0.90 and increased to 1.60 with a GFR of 30. Pt. treated with IV fluids of Normal Saline. Clarify which of the following most accurately represents the patient's renal status: ( x) Acute kidney injury (non-traumatic) ( ) Acute renal failure ( ) Acute renal failure with underlying Chronic Kidney Disease (CKD) - please provide stage below ( ) CKD - please provide stage below ( ) Other, please specify: ( ) Clinically unable to determine Chronic Kidney Disease Stages Source: National Kidney Disease Foundation ( ) Stage I (eGFR > or = 90) ( ) Stage II (eGFR 60 - 89) ( ) Stage III (eGFR 30 - 59) ( ) Stage IV (eGFR 15 - 29) ( ) Stage V (eGFR < 15 or dialysis) COMMENTS: Use of terms such as suspected, likely, or probable (associated with a specific diagnosis that is being evaluated, monitored, or treated as if it exists) are acceptable and can be restated in the discharge summary if not ruled out. MTDD
[2016-11-07] MEDS: ERYTHROMYCIN 0.5% OPHT OINT 3.5 GM TUBE LEFT EYE SCH ×3 (13:36→21:04)
[2016-11-07] MEDS: guaiFENesin 200 MG/10 ML UDCUP PO PRN ×2 (16:31→22:42)
[2016-11-07] MEDS: WARFARIN 3 MG TABLET PO SCH (17:31)
[2016-11-07] MEDS: oxyCODONE/ACETAMINOPHEN 5-325 MG TABLET PO PRN (21:05)
[2016-11-07] MEDS: ATORVASTATIN 20 MG TABLET PO SCH (21:05)
[2016-11-07] MEDS: ENOXAPARIN 40 MG/0.4 ML SYRINGE SUBCUT SCH (22:42)
[2016-11-07] MEDS: traMADol 50 MG TABLET PO PRN (22:43)
[2016-11-08] MEDS: ALBUTEROL/IPRATROPIUM 3 ML NEB RESP TX SCH ×6 (00:10→19:57)
[2016-11-08] MEDS: CIPROFLOXACIN 0.3% OPH SOLN 2.5 ML BOTTLE LEFT EYE SCH ×6 (01:24→10:21)
[2016-11-08] MEDS: POLYVINYL ALCOHOL 1.4% OPH SOLN 15 ML BOTTLE BOTH EYES PRN (03:32)
[2016-11-08] MEDS: AZTREONAM 2,000 MG in SODIUM CHLORIDE 0.9% 100 ML IV SCH ×4 (04:41→22:47)
[2016-11-08 08:06] LABS: Hematocrit 30.9 VOL% (35.7-47.0); Hemoglobin 9.2 GM/DL (12.0-16.0); Immature Granulocytes % 0.5 %; Immature Granulocytes Absolute 0.05 #; Lymphocytes # 0.5 10*3/uL (1.4-4.0); Mean Corpuscular HGB Conc 29.8 GM/DL (32-36); Mean Corpuscular Hemoglobin 26 PG (27-34); Mean Corpuscular Volume 85.8 FL (87-102); Mean Platelet Volume 10.9 FL (9.6-12.0); Monocytes # 0.3 10*3/uL (0.11-0.8); Monocytes % 3.7 % (1.7-12.7); Neutrophils # 8.4 10*3/uL (1.4-7.4); Neutrophils % 90.8 % (38.7-73.9); Platelet Count 171 10*3/uL (130-400); Red Cell Distribution Width 14.7 % (9.3-17.3); White Blood Count 9.3 10*3/uL (4.5-13.71)
[2016-11-08 08:41] LABS: Calcium 8.2 MG/DL (8.5-10.1); Osmolality,Calculated 300.6 MOS/KG (273-304); Potassium 4.1 MMOL/L (3.5-5.1)
[2016-11-08] MEDS: ASPIRIN 325 MG TABLET PO SCH (08:41)
[2016-11-08] MEDS: PANTOPRAZOLE 40 MG TABLET PO SCH (08:41)
[2016-11-08] MEDS: FLUTICASONE/SALMETEROL 500-50 DISKUS 14 DOSE INH SCH ×2 (08:41→21:55)
[2016-11-08] MEDS: METOPROLOL TARTRATE 25 MG TABLET PO SCH ×2 (08:41→21:54)
[2016-11-08] MEDS: MAGNESIUM CHLORIDE 64 MG TABLET PO SCH (08:41)
[2016-11-08] MEDS: MULTIVITAMIN (CENTRUM) TABLET PO SCH (08:41)
[2016-11-08] MEDS: PROPYLTHIOURACIL 50 MG TABLET PO SCH ×2 (08:41→21:54)
[2016-11-08] MEDS: SKIN HEALING OINT (AQUAPHOR) 50 GM TUBE TOP SCH (08:41)
[2016-11-08] MEDS: ERYTHROMYCIN 0.5% OPHT OINT 3.5 GM TUBE LEFT EYE SCH (08:42)
[2016-11-08 08:59] LABS: Lymphocytes 3 % (20-55); Platelet Estimate Normal; Segmented Neutrophils 94 % (50-85); Total Cells Counted 100
[2016-11-08] MEDS: oxyCODONE/ACETAMINOPHEN 5-325 MG TABLET PO PRN ×2 (08:59→16:45)
[2016-11-08 09:00] LABS: Burr Cells Slight; Hypochromasia 1+
[2016-11-08 09:41] LABS: PT Patient Result 62.2 SECS
[2016-11-08 09:43] LABS: INR 5.3
--- NOTE | 2016-11-08 09:52 | Hospitalist Progress Note ---
Assessment and Plan - Time spent with patient Time spent with patient: Less than 30 minutes (due to assessment, plan and doc) (1) Acute exacerbation of chronic obstructive airways disease Status: Resolved Current Visit: Yes (2) Community acquired pneumonia Status: Acute Current Visit: Yes (3) Conjunctivitis Status: Acute Current Visit: Yes Qualifiers: Conjunctivitis type: acute Acute conjunctivitis type: bacterial (4) Generalized weakness Status: Acute Current Visit: Yes (5) SIRS (systemic inflammatory response syndrome) Status: Acute Current Visit: Yes Hospitalist: Subjective Interval history: Ms. Sosa was seen on rounds lying in bed this morning. She states that she feels much better today than yesterday. Her left eye is still closed shut from her conjunctivitis, but she feels that this is improving as well. Her lungs are clear and denies any sob, chest pain or abdominal pain at this time. Will continue to monitor. Exam - Constitutional Vitals: Period Temp Pulse Resp BP Sys/Tracey Pulse Ox Last 24 Hr 97.1 F-98.6 F 78-110 16-24 110-151/60-84 88-100 General appearance: normal weight, no acute distress - Head Head exam: Present: normal inspection, normocephalic - Eye Eye exam: Present: EOMI, other (conjunctivitis left eye). Absent: scleral icterus Pupils: Present: KEEGAN, normal accommodation - ENT ENT exam: Present: normal exam, normal oropharynx - Neck Neck exam: Present: normal inspection. Absent: lymphadenopathy - Respiratory Respiratory exam: Present: clear to auscultation bilaterally. Absent: accessory muscle use - Cardiovascular Cardiovascular exam: Present: regular rate and rhythm - GI/Abdominal GI/Abdominal exam: Present: normal bowel sounds, tenderness, soft - Extremities Exam Extremities exam: Present: normal inspection. Absent: edema - Back Exam Back exam: Present: normal inspection. Absent: muscle spasm - Neurological Exam Neurological exam: Present: alert, oriented X3 - Psychiatric Psychiatric exam: Present: normal affect, normal mood - Skin Skin exam: Present: normal color, warm, dry, intact Results - Labs CBC & BMP: 11/08/16 07:43 11/08/16 07:43 Lab Results: I have reviewed the past 24 hour labs Specialty Discharge - Follow Up or Referrals - Discharge Medications No Action Propylthiouracil 50 mg PO BID Polyvinyl Alcohol 1.4% Oph Saray [Artificial Tears Oph Soln] 2 drop BOTH EYES Q6H PRN PRN Reason: dry eyes Omeprazole [Prilosec] 20 mg PO DAILY Albuterol Sulfate [Ventolin HFA] 2 puff INH Q4H PRN PRN Reason: Shortness Of Breath/Wheezing Albuterol/Ipratropium Neb [Duoneb] 3 ml RESP TX RT Q6H PRN PRN Reason: Shortness Of Breath/Wheezing Ondansetron Tab [Zofran Tab] 4 mg PO Q4HR PRN PRN Reason: Nausea Magnesium Chloride [Slow Mag] 64 mg PO DAILY Magnesium Hydroxide Susp [Milk of Magnesia] 30 ml PO Q12HR PRN PRN Reason: Constipation Aclidinium [place] [Tudorza Pressair] 400 mcg INH BID Ergocalciferol [Drisdol] 50,000 unit PO Q7D Skin Healing Oint (Aquaphor) [Aquaphor] 1 applic TOP DAILY Multivitamin [One Daily] 1 each PO DAILY Furosemide Tab [Lasix Tab] 40 mg PO BID DIURETIC Ibuprofen 200 mg PO Q4HR PRN PRN Reason: Fever Benzonatate [Tessalon] 100 mg PO Q4HR PRN PRN Reason: Cough Spironolactone [Aldactone] 50 mg PO DAILY Fluticasone/Salmeterol 500-50 [Advair 500-50] 1 puff INH BID Warfarin [Coumadin] 3 mg PO DAILY@1800 Aspirin Tab 325 mg PO DAILY tablet Atorvastatin [Lipitor] 20 mg PO BEDTIME tablet Metoprolol Tartrate Tab [Lopressor Tab] 12.5 mg PO BID tablet oxyCODONE/ACETAMINOPHEN 5-325 [Percocet 5-325] 1 tablet PO Q8HR PRN #10 tablet PRN Reason: Pain traMADol TAB [Ultram] 50 mg PO Q6H PRN #10 PRN Reason: Pain Levofloxacin Tab [Levaquin Tab] 500 mg PO Q48H #5 tablet
[2016-11-08] MEDS: methylPREDNISolone SOD SUC 40 MG/1 ML VIAL IV SCH ×2 (10:50→22:48)
[2016-11-08] MEDS: PHENOL 1.4% THROAT SPRAY 177 ML BOTTLE PO PRN (10:50)
[2016-11-08] MEDS: ACLIDINIUM BROMIDE 400 MCG INH SCH ×2 (13:57→18:23)
[2016-11-08] MEDS: GENTAMICIN 0.3% OPH SOLN 5 ML BOTTLE LEFT EYE SCH ×3 (14:29→23:00)
[2016-11-08] MEDS: guaiFENesin 200 MG/10 ML UDCUP PO PRN (17:49)
--- NOTE | 2016-11-08 18:49 | Cardiology Consult Note ---
Assessment and Plan (1) Sinus tachycardia Status: Acute Assessment and plan: She is having sinus tachycardia with she's had previously. This is exacerbated probably with shortness of breath and her poor physical condition. Also her albuterol treatments are probably exacerbating this. Consideration would be to switch her to Xopenex. She is on low-dose metoprolol and we can increase his. An option would be by Bystolic. At this time I'll increase her metoprolol and monitor her heart rates. Would not get echocardiogram to with Tyesha is a little better. Current Visit: Yes (2) Acute exacerbation of chronic obstructive airways disease Status: Resolved Assessment and plan: This is probably aggravating her heart races patient the treatment with albuterol. Current Visit: Yes History of Present Illness - Data of Consult Patient: new to practice Consult date: 11/08/16 Requesting Physician: Nikki Burt - Consult Narrative Reason for consult: tachycardia History of present illness: Ms. Sosa is a 80 year old female who is an extremely poor historian not much information is available through her. The chart is been reviewed and the patient examined. Patient is apparently admitted with respiratory distress and has COPD and apparently an exacerbation of this. She still has pneumonia. She is receiving albuterol therapy. We're asked to the patient because of tachycardia. I have reviewed her chart and find that she is having episodes of sinus tachycardia. Tonight she had an exacerbation of this. I do not see any evidence of atrial dysrhythmias at this time. CC: Nikki Burt MD - Home Medications and Allergies Home Medications: Home Medications Medication Instructions Recorded Confirmed Type Albuterol Sulfate [Ventolin HFA] 2 puff INH Q4H PRN 11/27/15 11/05/16 History Omeprazole [Prilosec] 20 mg PO DAILY 11/27/15 11/05/16 History Polyvinyl Alcohol 1.4% Oph Saray 2 drop BOTH EYES Q6H PRN 11/27/15 11/05/16 History [Artificial Tears Oph Soln] Propylthiouracil 50 mg PO BID 11/27/15 11/05/16 History Albuterol/Ipratropium Neb [Duoneb] 3 ml RESP TX RT Q6H PRN 12/13/15 11/05/16 History Ondansetron Tab [Zofran Tab] 4 mg PO Q4HR PRN 12/13/15 11/05/16 History Magnesium Chloride [Slow Mag] 64 mg PO DAILY 12/14/15 11/05/16 History Aclidinium [place] [Tudorza 400 mcg INH BID 04/12/16 11/05/16 History Pressair] Benzonatate [Tessalon] 100 mg PO Q4HR PRN 04/12/16 11/05/16 History Ergocalciferol [Drisdol] 50,000 unit PO Q7D 04/12/16 11/05/16 History Fluticasone/Salmeterol 500-50 1 puff INH BID 04/12/16 11/05/16 History [Advair 500-50] Furosemide Tab [Lasix Tab] 40 mg PO BID DIURETIC 04/12/16 11/05/16 History Ibuprofen 200 mg PO Q4HR PRN 04/12/16 11/05/16 History Magnesium Hydroxide Susp [Milk of 30 ml PO Q12HR PRN 04/12/16 11/05/16 History Magnesia] Multivitamin [One Daily] 1 each PO DAILY 04/12/16 11/05/16 History Skin Healing Oint (Aquaphor) 1 applic TOP DAILY 04/12/16 11/05/16 History [Aquaphor] Spironolactone [Aldactone] 50 mg PO DAILY 04/12/16 11/05/16 History Warfarin [Coumadin] 3 mg PO DAILY@1800 04/24/16 11/05/16 History Aspirin Tab 325 mg PO DAILY tablet 04/29/16 11/05/16 Rx Atorvastatin [Lipitor] 20 mg PO BEDTIME tablet 04/29/16 11/05/16 Rx Metoprolol Tartrate Tab [Lopressor 12.5 mg PO BID tablet 04/29/16 11/05/16 Rx Tab] oxyCODONE/ACETAMINOPHEN 5-325 1 tablet PO Q8HR PRN #10 tablet 04/30/16 11/05/16 Rx [Percocet 5-325] traMADol TAB [Ultram] 50 mg PO Q6H PRN #10 04/30/16 11/05/16 Rx Levofloxacin Tab [Levaquin Tab] 500 mg PO Q48H #5 tablet 08/03/16 11/05/16 Rx Allergies/Adverse Reactions: Allergies Allergy/AdvReac Type Severity Reaction Status Date / Time meperidine [From Demerol] Allergy ITCHING Verified 11/27/15 13:32 Penicillins Allergy RASH Verified 11/27/15 13:32 Sulfa (Sulfonamide Allergy RASH Verified 11/27/15 13:32 Antibiotics) tetanus toxoid, adsorbed Allergy ANAPHYLAXIS Verified 11/27/15 13:32 hydrocodone [From Lortab] AdvReac Nausea Verified 11/27/15 13:32 morphine AdvReac Hypotension Verified 11/27/15 13:32 pentazocine [From Talwin] AdvReac Hallucinati Verified 11/27/15 13:32 ng ROS unobtainable: other (patient is disoriented this time and not able to give much of a good history) Medical,Surgical,& Family Hx - Medical History Cardio: History of: CHF, Hypertension, [place] (per pt in s) Neurology: History of: Vertigo (on occasion), Neurologocal Cancer (ovarian ca- 1989) No history of: Seizures HEENT: History of: Eye Problem (GLASSES) Endocrine: History of: Thyroid Disorder Rheumatology: History of;: Rheumatoid Arthritis Respiratory: History of: Bronchitis, COPD, Obstructive Sleep Apnea, Pneumonia, Respiratory Problems Renal: History of: Renal Problems (left nephrectomy) Gastrointestinal: History of: GERD, Hemorrhoids (MILD), Liver Problems (S, HEP), GI Problems (hernia) Musculoskeletal: History of: Back/Neck Problems, Osteoporosis, Musculoskeletal Problems (severe edema.) Hematology: History of: Anemia (PAST HISTORY), Clotting Problems (history of lower extremity DVT) Reproductive: History of: Reproductive Cancer Other: History of: Anesthesia Reactions (N/V), Cancer - Surgical History Thoracic Surgeries: Patient denies;: Organ Transplant, Lobectomy Neurologic Surgeries: Patient denies: Neurologic Surgery HEENT Surgeries: Surgical HX of: Eye Surgery (CATARACT BILATERAL) Abdominal Surgeries: Surgical HX of: Abdominal Surgery, Appendectomy, Cholecystectomy, Hernia Repair Reproductive Surgeries: Surgical HX of;: Hysterectomy - Family History Family History: Reports;: Family Heart Disease - Social History Smoking Status: Former smoker Frequency of Alcohol Use: None Type of Drug Use: None Physical Examination Vital Signs Temp Pulse Resp BP Pulse Ox 100.7 F H 146 H 28 H 124/80 89 L 11/05/16 18:12 11/05/16 18:12 11/05/16 18:12 11/05/16 18:12 11/05/16 18:12 Other: General appearance: Obese female, no acute distress but is mildly short of breath. Head exam: normal inspection, atraumatic Eye exam: Left eye is sewn closed. This is apparently for some type of infection. Ear exam: Normal auditory acuity to conversation. Oral exam: No significant oral lesions. Neck exam: normal inspection no JVD. No carotid bruit. Trachea is in midline. Respiratory exam: Coarse breath sounds and diffuse S4 wheezing with increased expiratory phase. There are rhonchi. Cardiovascular exam: Tachycardic but regular rhythm, no murmur or gallop or rub. No precordial lift. No bruits over the major arteries. Chest wall/torso: Anatomically normal. No tenderness, deformity Peripheral Pulses: 2+ throughout. GI/Abdominal exam: soft with minimal direct tenderness, no abdominal bruits or pulsatile masses. Musculoskeletal/Extremities exam: Some 1+ bilateral pretibial edema with chronic skin changes Neurological exam: She is awake alert but a very poor historian. Psychiatric exam: Poor historian and appears to be confused. Skin exam: Skin is warm but multiple bruises. She is on chronic anticoagulation Result/EKG - Labs CBC & BMP: 11/08/16 07:43 11/08/16 07:43 Lab Results: I have reviewed the past 24 hour labs (INR 0 markedly elevated.) Labs: Laboratory Results - last 24 hr 11/08/16 11/08/16 11/08/16 07:43 07:43 09:04 WBC 9.3 RBC 3.60 L Hgb 9.2 L Hct 30.9 L MCV 85.8 L MCH 26 L MCHC 29.8 L RDW 14.7 Plt Count 171 MPV 10.9 Neut % (Auto) 90.8 H Lymph % (Auto) 5.[address] [place] % (Auto) 3.7 Eos % (Auto) 0.0 Baso % (Auto) 0.0 Neut # (Auto) 8.4 H Lymph # (Auto) 0.[address] [place] # (Auto) 0.3 Eos # (Auto) 0.0 Baso # (Auto) 0.0 Total Counted 100 Immature Gran % 0.5 Nucleated RBC % 0.0 Immature Gran # 0.05 Segmented Neutrophils 94 H Lymphocytes 3 L Monocytes 3 Nucleated RBCs # 0.00 Platelet Estimate Normal Hypochromasia 1+ [place] Cells Slight INR 5.3 H* PT Patient/Control Mix 62.2 D Sodium 146 H Potassium 4.1 Chloride 111 H Carbon Dioxide 27 Anion Gap 12.1 BUN 28 H Creatinine 1.20 H GFR Calculation 42 BUN/Creatinine Ratio 23.00 H Glucose 185 H Calculated Osmolality 300.6 Calcium 8.2 L - Impressions Impressions: ECGs with sinus tachycardia. I do not see any evidence of atrial dysrhythmias. Specialty Discharge - Follow Up or Referrals - Discharge Medications No Action Propylthiouracil 50 mg PO BID Polyvinyl Alcohol 1.4% Oph Saray [Artificial Tears Oph Soln] 2 drop BOTH EYES Q6H PRN PRN Reason: dry eyes Omeprazole [Prilosec] 20 mg PO DAILY Albuterol Sulfate [Ventolin HFA] 2 puff INH Q4H PRN PRN Reason: Shortness Of Breath/Wheezing Albuterol/Ipratropium Neb [Duoneb] 3 ml RESP TX RT Q6H PRN PRN Reason: Shortness Of Breath/Wheezing Ondansetron Tab [Zofran Tab] 4 mg PO Q4HR PRN PRN Reason: Nausea Magnesium Chloride [Slow Mag] 64 mg PO DAILY Magnesium Hydroxide Susp [Milk of Magnesia] 30 ml PO Q12HR PRN PRN Reason: Constipation Aclidinium [place] [Tudorza Pressair] 400 mcg INH BID Ergocalciferol [Drisdol] 50,000 unit PO Q7D Skin Healing Oint (Aquaphor) [Aquaphor] 1 applic TOP DAILY Multivitamin [One Daily] 1 each PO DAILY Furosemide Tab [Lasix Tab] 40 mg PO BID DIURETIC Ibuprofen 200 mg PO Q4HR PRN PRN Reason: Fever Benzonatate [Tessalon] 100 mg PO Q4HR PRN PRN Reason: Cough Spironolactone [Aldactone] 50 mg PO DAILY Fluticasone/Salmeterol 500-50 [Advair 500-50] 1 puff INH BID Warfarin [Coumadin] 3 mg PO DAILY@1800 Aspirin Tab 325 mg PO DAILY tablet Atorvastatin [Lipitor] 20 mg PO BEDTIME tablet Metoprolol Tartrate Tab [Lopressor Tab] 12.5 mg PO BID tablet oxyCODONE/ACETAMINOPHEN 5-325 [Percocet 5-325] 1 tablet PO Q8HR PRN #10 tablet PRN Reason: Pain traMADol TAB [Ultram] 50 mg PO Q6H PRN #10 PRN Reason: Pain Levofloxacin Tab [Levaquin Tab] 500 mg PO Q48H #5 tablet
[2016-11-08] MEDS: ATORVASTATIN 20 MG TABLET PO SCH (21:54)
[2016-11-09] MEDS: ALBUTEROL/IPRATROPIUM 3 ML NEB RESP TX SCH ×3 (00:22→08:11)
[2016-11-09] MEDS: GENTAMICIN 0.3% OPH SOLN 5 ML BOTTLE LEFT EYE SCH ×6 (02:45→21:00)
[2016-11-09] MEDS: AZTREONAM 2,000 MG in SODIUM CHLORIDE 0.9% 100 ML IV SCH ×4 (04:01→23:00)
--- NOTE | 2016-11-09 07:20 | EKG Report ---
Stationary ECG Study [facility] Test Date: 11/08/2016 5:05:26 PM Pat Name: WILIAM CASON Department: Room: 533 Gender: F Front Desk Representative: THOMAS : 1935 Requested by: Nikki Burt Order Number: [id number] Reading MD: LITA WHITE Intervals [place] Rate: 117 P: 999 GA: 0 QRS: -29 QRSD: 83 T: 43 QT: 297 QTc: 366 Interpretive Statements SINUS TACHYCARDIA LOW VOLTAGE IN THE LIMB LEADS Electronically Signed On 11-09-16 08:31:52 BALLASTER by LITA WHITE [email or web address]
[2016-11-09] MEDS: FLUTICASONE/SALMETEROL 500-50 DISKUS 14 DOSE INH SCH ×2 (08:46→21:00)
[2016-11-09] MEDS: ASPIRIN 325 MG TABLET PO SCH (08:47)
[2016-11-09] MEDS: MAGNESIUM CHLORIDE 64 MG TABLET PO SCH (08:47)
[2016-11-09] MEDS: PROPYLTHIOURACIL 50 MG TABLET PO SCH ×2 (08:47→20:30)
[2016-11-09] MEDS: MULTIVITAMIN (CENTRUM) TABLET PO SCH (08:47)
[2016-11-09] MEDS: PANTOPRAZOLE 40 MG TABLET PO SCH (08:48)
[2016-11-09] MEDS: SKIN HEALING OINT (AQUAPHOR) 50 GM TUBE TOP SCH (08:48)
[2016-11-09] MEDS: METOPROLOL TARTRATE 25 MG TABLET PO SCH ×2 (08:48→20:30)
--- NOTE | 2016-11-09 09:23 | Hospitalist Progress Note ---
Assessment and Plan (1) SIRS (systemic inflammatory response syndrome) Status: Acute Assessment and plan: likely has underlying early cellulitis, continue current abx. 11/07/16: I think she did have sepsis as the sources pneumonia. She does not have cellulitis. At this time will continue Aztreonam as she is clinically improving 11/09/16: It appears over past 1-2 days she isn't feeling as well as before but she denies any specific complaints. continue abx, steroids, Nebs Current Visit: Yes (2) Anemia in chronic kidney disease Status: Chronic Current Visit: No (3) Chronic anticoagulation Status: Acute Current Visit: No (4) Conjunctivitis Status: Acute Assessment and plan: MRSA cultured, abx changed to gentamicin opt Current Visit: Yes Qualifiers: Conjunctivitis type: acute Acute conjunctivitis type: bacterial (5) COPD (chronic obstructive pulmonary disease) Status: Chronic Assessment and plan: continue steroids, DuoNebs, abx, goal is to wean from Bipap. Current Visit: No Qualifiers: COPD type: COPD with acute exacerbation Qualified Code(s): J44.1 - Chronic obstructive pulmonary disease with (acute) exacerbation Hospitalist: Subjective Interval history: 80-year-old female who has history of COPD who was admitted complaining of progressive shortness of breath if she does have a history of chronic shortness of breath. She was found to have a questionable right lower lobe infiltrate with chronic changes consistent with COPD. This morning she denies any respiratory issues or chest pain which she has been having previous few days when it was felt like it was related to her albuterol causing her heart rate to increase. This morning she states she just does not feel well but she denies any specific pain or complaints. Exam - Constitutional Vitals: Period Temp Pulse Resp BP Sys/Tracey Pulse Ox Last 24 Hr 96.6 F-98.7 F 76-113 18-22 120-147/69-98 88-99 Exam: appears as if she doesn't feel well but nontoxic appearing. - Eye Eye exam: Present: other (closure of her left eye with drainage) - ENT ENT exam: Present: normal exam - Respiratory Respiratory exam: Present: clear to auscultation bilaterally - Cardiovascular Cardiovascular exam: Present: regular rate and rhythm - GI/Abdominal GI/Abdominal exam: Present: normal bowel sounds, soft - Neurological Exam Neurological exam: Present: alert, oriented X3 - Psychiatric Psychiatric exam: Present: normal mood - Skin Skin exam: Present: warm Results - Labs CBC & BMP: 11/08/16 07:43 11/08/16 07:43 Specialty Discharge - Follow Up or Referrals - Discharge Medications No Action Propylthiouracil 50 mg PO BID Polyvinyl Alcohol 1.4% Oph Saray [Artificial Tears Oph Soln] 2 drop BOTH EYES Q6H PRN PRN Reason: dry eyes Omeprazole [Prilosec] 20 mg PO DAILY Albuterol Sulfate [Ventolin HFA] 2 puff INH Q4H PRN PRN Reason: Shortness Of Breath/Wheezing Albuterol/Ipratropium Neb [Duoneb] 3 ml RESP TX RT Q6H PRN PRN Reason: Shortness Of Breath/Wheezing Ondansetron Tab [Zofran Tab] 4 mg PO Q4HR PRN PRN Reason: Nausea Magnesium Chloride [Slow Mag] 64 mg PO DAILY Magnesium Hydroxide Susp [Milk of Magnesia] 30 ml PO Q12HR PRN PRN Reason: Constipation Aclidinium [place] [Tudorza Pressair] 400 mcg INH BID Ergocalciferol [Drisdol] 50,000 unit PO Q7D Skin Healing Oint (Aquaphor) [Aquaphor] 1 applic TOP DAILY Multivitamin [One Daily] 1 each PO DAILY Furosemide Tab [Lasix Tab] 40 mg PO BID DIURETIC Ibuprofen 200 mg PO Q4HR PRN PRN Reason: Fever Benzonatate [Tessalon] 100 mg PO Q4HR PRN PRN Reason: Cough Spironolactone [Aldactone] 50 mg PO DAILY Fluticasone/Salmeterol 500-50 [Advair 500-50] 1 puff INH BID Warfarin [Coumadin] 3 mg PO DAILY@1800 Aspirin Tab 325 mg PO DAILY tablet Atorvastatin [Lipitor] 20 mg PO BEDTIME tablet Metoprolol Tartrate Tab [Lopressor Tab] 12.5 mg PO BID tablet oxyCODONE/ACETAMINOPHEN 5-325 [Percocet 5-325] 1 tablet PO Q8HR PRN #10 tablet PRN Reason: Pain traMADol TAB [Ultram] 50 mg PO Q6H PRN #10 PRN Reason: Pain Levofloxacin Tab [Levaquin Tab] 500 mg PO Q48H #5 tablet
--- NOTE | 2016-11-09 10:17 | Cardiology Progress Note ---
Assessment and Plan (1) Sinus tachycardia Status: Acute Assessment and plan: This is much improved with increase her metoprolol. I suspect her albuterol exacerbations some degree. Also is exacerbated when she has periods of increased wheezing and shortness of breath. Current Visit: Yes (2) Acute exacerbation of chronic obstructive airways disease Status: Resolved Assessment and plan: Clinically this is much better. Current Visit: Yes Cardiology - PN: Subj Interval history: Patient's Rh doing better today. We will increase her metoprolol. She also seemed be feeling better in regard to her breathing issues. She is not wheezing is much is resting more comfortably. Exam (Progress Note) - Constitutional Vitals: Period Temp Pulse Resp BP Sys/Tracey Pulse Ox Last 24 Hr 96.6 F-98.7 F 76-113 18-22 120-147/69-98 88-99 Exam: eneral appearance: Obese female, no acute distress resting easily. Head exam: normal inspection, atraumatic Eye exam: Left eye is sewn closed. This is apparently for some type of infection. Neck exam: normal inspection no JVD. No carotid bruit. Trachea is in midline. Respiratory exam: Coarse breath sounds with much less wheezing and better air movement. There are rhonchi. Cardiovascular exam: Regular rate and rhythm no murmur or gallop or rub. No precordial lift. No bruits over the major arteries. Chest wall/torso: Anatomically normal. No tenderness, deformity Peripheral Pulses: 2+ throughout. GI/Abdominal exam: soft with minimal direct tenderness, no abdominal bruits or pulsatile masses. Musculoskeletal/Extremities exam: Some 1+ bilateral pretibial edema with chronic skin changes Neurological exam: She is awake alert but a very poor historian. Psychiatric exam: Poor historian and appears to be confused. Skin exam: Skin is warm but multiple bruises. She is on chronic anticoagulation Result/EKG - Labs CBC & BMP: 11/08/16 07:43 11/08/16 07:43 - Impressions Impressions: Telemetry sinus rhythm with occasional PAC but heart rates less than 100 bpm. Specialty Discharge - Follow Up or Referrals - Discharge Medications No Action Propylthiouracil 50 mg PO BID Polyvinyl Alcohol 1.4% Oph Saray [Artificial Tears Oph Soln] 2 drop BOTH EYES Q6H PRN PRN Reason: dry eyes Omeprazole [Prilosec] 20 mg PO DAILY Albuterol Sulfate [Ventolin HFA] 2 puff INH Q4H PRN PRN Reason: Shortness Of Breath/Wheezing Albuterol/Ipratropium Neb [Duoneb] 3 ml RESP TX RT Q6H PRN PRN Reason: Shortness Of Breath/Wheezing Ondansetron Tab [Zofran Tab] 4 mg PO Q4HR PRN PRN Reason: Nausea Magnesium Chloride [Slow Mag] 64 mg PO DAILY Magnesium Hydroxide Susp [Milk of Magnesia] 30 ml PO Q12HR PRN PRN Reason: Constipation Aclidinium [place] [Tudorza Pressair] 400 mcg INH BID Ergocalciferol [Drisdol] 50,000 unit PO Q7D Skin Healing Oint (Aquaphor) [Aquaphor] 1 applic TOP DAILY Multivitamin [One Daily] 1 each PO DAILY Furosemide Tab [Lasix Tab] 40 mg PO BID DIURETIC Ibuprofen 200 mg PO Q4HR PRN PRN Reason: Fever Benzonatate [Tessalon] 100 mg PO Q4HR PRN PRN Reason: Cough Spironolactone [Aldactone] 50 mg PO DAILY Fluticasone/Salmeterol 500-50 [Advair 500-50] 1 puff INH BID Warfarin [Coumadin] 3 mg PO DAILY@1800 Aspirin Tab 325 mg PO DAILY tablet Atorvastatin [Lipitor] 20 mg PO BEDTIME tablet Metoprolol Tartrate Tab [Lopressor Tab] 12.5 mg PO BID tablet oxyCODONE/ACETAMINOPHEN 5-325 [Percocet 5-325] 1 tablet PO Q8HR PRN #10 tablet PRN Reason: Pain traMADol TAB [Ultram] 50 mg PO Q6H PRN #10 PRN Reason: Pain Levofloxacin Tab [Levaquin Tab] 500 mg PO Q48H #5 tablet
[2016-11-09] MEDS: methylPREDNISolone SOD SUC 40 MG/1 ML VIAL IV SCH ×2 (11:01→23:00)
[2016-11-09] MEDS: DOXYCYCLINE HYCLATE INJ 100 MG in SODIUM CHLORIDE 0.9% 100 ML IV SCH ×2 (11:01→22:00)
[2016-11-09 11:02] LABS: INR 3.7
[2016-11-09] MEDS: oxyCODONE/ACETAMINOPHEN 5-325 MG TABLET PO PRN (11:02)
[2016-11-09 11:06] LABS: PT Patient Result 42.8 SECS
[2016-11-09] MEDS: ALBUTEROL 2.5 MG/3 ML NEB RESP TX SCH ×5 (12:26→23:57)
[2016-11-09] MEDS: ATORVASTATIN 20 MG TABLET PO SCH (20:30)
[2016-11-09] MEDS: guaiFENesin 200 MG/10 ML UDCUP PO PRN (20:30)
[2016-11-10] MEDS: GENTAMICIN 0.3% OPH SOLN 5 ML BOTTLE LEFT EYE SCH ×6 (02:08→22:50)
[2016-11-10] MEDS: ALBUTEROL 2.5 MG/3 ML NEB RESP TX SCH ×5 (03:32→20:28)
[2016-11-10] MEDS: AZTREONAM 2,000 MG in SODIUM CHLORIDE 0.9% 100 ML IV SCH ×4 (06:13→23:52)
[2016-11-10 06:26] LABS: Hemoglobin 8.7 GM/DL (12.0-16.0); Immature Granulocytes % 1.3 %; Immature Granulocytes Absolute 0.09 #; Lymphocytes # 0.5 10*3/uL (1.4-4.0); Lymphocytes % 6.8 % (21.3-54.2); Mean Corpuscular Hemoglobin 26 PG (27-34); Mean Corpuscular Volume 85.8 FL (87-102); Mean Platelet Volume 10.6 FL (9.6-12.0); Monocytes # 0.3 10*3/uL (0.11-0.8); Monocytes % 4.2 % (1.7-12.7); Neutrophils # 6.3 10*3/uL (1.4-7.4); Neutrophils % 87.7 % (38.7-73.9); Platelet Count 170 10*3/uL (130-400); Red Blood Count 3.38 10*6/uL (3.8-5.5); Red Cell Distribution Width 14.7 % (9.3-17.3); White Blood Count 7.2 10*3/uL (4.5-13.71)
[2016-11-10 06:47] LABS: INR 3.2
[2016-11-10 06:56] LABS: PT Patient Result 36.8 SECS
[2016-11-10 07:00] LABS: Calcium 8.7 MG/DL (8.5-10.1); Potassium 4.4 MMOL/L (3.5-5.1)
--- NOTE | 2016-11-10 08:10 | Hospitalist Progress Note ---
Assessment and Plan (1) COPD (chronic obstructive pulmonary disease) Status: Chronic Assessment and plan: seems to be getting better we'll review her medicines hopefully home in the next day or 2 Current Visit: No Qualifiers: COPD type: COPD with acute exacerbation Qualified Code(s): J44.1 - Chronic obstructive pulmonary disease with (acute) exacerbation (2) Community acquired pneumonia Status: Acute Current Visit: Yes Hospitalist: Subjective Interval history: Patient without complaints today says she's feeling a little bit better Exam - Constitutional Vitals: Period Temp Pulse Resp BP Sys/Tracey Pulse Ox Last 24 Hr 97.5 F-98.1 F 60-106 15-20 113-144/56-71 92-98 Exam: Constitutional: General appearance is normal Eyes: Pupils equal round react to light and accommodation conjunctiva and lids are normal Neck: supple without masses Respiratory: Respiratory effort is normal. Lungs are clear to auscultation. Resonant to percussion. Cardiac: Regular rate and rhythm without murmur rub or gallop. PMI at the midclavicular line by palpation. Carotid arteries 2+ palpation no bruits GI: Bowel sounds normoactive, no tenderness or rebound tenderness, no organomegaly Extremities: no clubbing cyanosis or edema Results - Labs CBC & BMP: 11/10/16 06:07 11/10/16 06:07 Specialty Discharge - Follow Up or Referrals - Discharge Medications No Action Propylthiouracil 50 mg PO BID Polyvinyl Alcohol 1.4% Oph Saray [Artificial Tears Oph Soln] 2 drop BOTH EYES Q6H PRN PRN Reason: dry eyes Omeprazole [Prilosec] 20 mg PO DAILY Albuterol Sulfate [Ventolin HFA] 2 puff INH Q4H PRN PRN Reason: Shortness Of Breath/Wheezing Albuterol/Ipratropium Neb [Duoneb] 3 ml RESP TX RT Q6H PRN PRN Reason: Shortness Of Breath/Wheezing Ondansetron Tab [Zofran Tab] 4 mg PO Q4HR PRN PRN Reason: Nausea Magnesium Chloride [Slow Mag] 64 mg PO DAILY Magnesium Hydroxide Susp [Milk of Magnesia] 30 ml PO Q12HR PRN PRN Reason: Constipation Aclidinium [place] [Tudorza Pressair] 400 mcg INH BID Ergocalciferol [Drisdol] 50,000 unit PO Q7D Skin Healing Oint (Aquaphor) [Aquaphor] 1 applic TOP DAILY Multivitamin [One Daily] 1 each PO DAILY Furosemide Tab [Lasix Tab] 40 mg PO BID DIURETIC Ibuprofen 200 mg PO Q4HR PRN PRN Reason: Fever Benzonatate [Tessalon] 100 mg PO Q4HR PRN PRN Reason: Cough Spironolactone [Aldactone] 50 mg PO DAILY Fluticasone/Salmeterol 500-50 [Advair 500-50] 1 puff INH BID Warfarin [Coumadin] 3 mg PO DAILY@1800 Aspirin Tab 325 mg PO DAILY tablet Atorvastatin [Lipitor] 20 mg PO BEDTIME tablet Metoprolol Tartrate Tab [Lopressor Tab] 12.5 mg PO BID tablet oxyCODONE/ACETAMINOPHEN 5-325 [Percocet 5-325] 1 tablet PO Q8HR PRN #10 tablet PRN Reason: Pain traMADol TAB [Ultram] 50 mg PO Q6H PRN #10 PRN Reason: Pain Levofloxacin Tab [Levaquin Tab] 500 mg PO Q48H #5 tablet
[2016-11-10] MEDS ORDERED: ERGOCALCIFEROL 50,000 UNIT CAPSULE PO SCH (09:00)
[2016-11-10] MEDS: DOXYCYCLINE HYCLATE INJ 100 MG in SODIUM CHLORIDE 0.9% 100 ML IV SCH ×2 (09:14→22:46)
[2016-11-10] MEDS: SKIN HEALING OINT (AQUAPHOR) 50 GM TUBE TOP SCH (09:14)
[2016-11-10] MEDS: FLUTICASONE/SALMETEROL 500-50 DISKUS 14 DOSE INH SCH ×2 (09:14→22:50)
[2016-11-10] MEDS: PANTOPRAZOLE 40 MG TABLET PO SCH (09:15)
[2016-11-10] MEDS: MAGNESIUM CHLORIDE 64 MG TABLET PO SCH (09:15)
[2016-11-10] MEDS: METOPROLOL TARTRATE 25 MG TABLET PO SCH ×2 (09:15→20:57)
[2016-11-10] MEDS: predniSONE 20 MG TABLET PO SCH (09:15)
[2016-11-10] MEDS: ASPIRIN 325 MG TABLET PO SCH (09:15)
[2016-11-10] MEDS: MULTIVITAMIN (CENTRUM) TABLET PO SCH (09:15)
[2016-11-10] MEDS: PROPYLTHIOURACIL 50 MG TABLET PO SCH ×2 (09:15→20:58)
--- NOTE | 2016-11-10 13:42 | Cardiology Progress Note ---
Assessment and Plan (1) Sinus tachycardia Status: Acute Assessment and plan: No further breakthrough episodes. Continue present medication. Current Visit: Yes (2) Acute exacerbation of chronic obstructive airways disease Status: Resolved Assessment and plan: Clinically this continues to improve. Current Visit: Yes Cardiology - PN: Subj Interval history: The patient is don't well from cardiac standpoint with a heart rates being well managed. She's sinus rhythm without breakthrough tachycardia now. Phimosis is do not think to increase metoprolol. She's had no chest pain or other cardiac symptomatology. Exam (Progress Note) - Constitutional Vitals: Period Temp Pulse Resp BP Sys/Tracey Pulse Ox Last 24 Hr 97.3 F-98.4 F 60-106 15-20 113-148/56-85 92-99 Exam: eneral appearance: Obese female, no acute distress resting easily. Head exam: normal inspection, atraumatic Eye exam: Left eye is sewn closed. This is apparently for some type of infection. Neck exam: normal inspection no JVD. No carotid bruit. Trachea is in midline. Respiratory exam: Coarse breath sounds bilaterally with much less wheezing and better air movement. There are rhonchi. Cardiovascular exam: Regular rate and rhythm no murmur or gallop or rub. No precordial lift. No bruits over the major arteries. Chest wall/torso: Anatomically normal. No tenderness, deformity GI/Abdominal exam: soft with minimal direct tenderness, no abdominal bruits or pulsatile masses. Musculoskeletal/Extremities exam: Some 1+ bilateral pretibial edema with chronic skin changes Neurological exam: She is awake alert but a very poor historian. Psychiatric exam: Poor historian and appears to be confused. Skin exam: Skin is warm but multiple bruises. She is on chronic anticoagulation Result/EKG - Labs CBC & BMP: 11/10/16 06:07 11/10/16 06:07 Lab Results: I have reviewed the past 24 hour labs Labs: Laboratory Results - last 24 hr 11/10/16 11/10/16 11/10/16 06:07 06:07 06:07 WBC 7.2 RBC 3.38 L Hgb 8.7 L Hct 29.0 L MCV 85.8 L MCH 26 L MCHC 30.0 L RDW 14.7 Plt Count 170 MPV 10.6 Neut % (Auto) 87.7 H Lymph % (Auto) 6.8 L [place] % (Auto) 4.2 Eos % (Auto) 0.0 Baso % (Auto) 0.0 Neut # (Auto) 6.3 Lymph # (Auto) 0.5 L [place] # (Auto) 0.3 Eos # (Auto) 0.0 Baso # (Auto) 0.0 Immature Gran % 1.3 Nucleated RBC % 0.0 Immature Gran # 0.09 Nucleated RBCs # 0.00 INR 3.2 PT Patient/Control Mix 36.8 Sodium 150 H Potassium 4.4 Chloride 115 H Carbon Dioxide 26 Anion Gap 13.4 BUN 34 H Creatinine 1.10 H GFR Calculation 47 BUN/Creatinine Ratio 30.00 H Glucose 226 H Calculated Osmolality 312.0 H Calcium 8.7 - Impressions Impressions: Telemetry was sinus rhythm without breakthrough tachycardia. Specialty Discharge - Follow Up or Referrals - Discharge Medications No Action Propylthiouracil 50 mg PO BID Polyvinyl Alcohol 1.4% Oph Saray [Artificial Tears Oph Soln] 2 drop BOTH EYES Q6H PRN PRN Reason: dry eyes Omeprazole [Prilosec] 20 mg PO DAILY Albuterol Sulfate [Ventolin HFA] 2 puff INH Q4H PRN PRN Reason: Shortness Of Breath/Wheezing Albuterol/Ipratropium Neb [Duoneb] 3 ml RESP TX RT Q6H PRN PRN Reason: Shortness Of Breath/Wheezing Ondansetron Tab [Zofran Tab] 4 mg PO Q4HR PRN PRN Reason: Nausea Magnesium Chloride [Slow Mag] 64 mg PO DAILY Magnesium Hydroxide Susp [Milk of Magnesia] 30 ml PO Q12HR PRN PRN Reason: Constipation Aclidinium [place] [Tudorza Pressair] 400 mcg INH BID Ergocalciferol [Drisdol] 50,000 unit PO Q7D Skin Healing Oint (Aquaphor) [Aquaphor] 1 applic TOP DAILY Multivitamin [One Daily] 1 each PO DAILY Furosemide Tab [Lasix Tab] 40 mg PO BID DIURETIC Ibuprofen 200 mg PO Q4HR PRN PRN Reason: Fever Benzonatate [Tessalon] 100 mg PO Q4HR PRN PRN Reason: Cough Spironolactone [Aldactone] 50 mg PO DAILY Fluticasone/Salmeterol 500-50 [Advair 500-50] 1 puff INH BID Warfarin [Coumadin] 3 mg PO DAILY@1800 Aspirin Tab 325 mg PO DAILY tablet Atorvastatin [Lipitor] 20 mg PO BEDTIME tablet Metoprolol Tartrate Tab [Lopressor Tab] 12.5 mg PO BID tablet oxyCODONE/ACETAMINOPHEN 5-325 [Percocet 5-325] 1 tablet PO Q8HR PRN #10 tablet PRN Reason: Pain traMADol TAB [Ultram] 50 mg PO Q6H PRN #10 PRN Reason: Pain Levofloxacin Tab [Levaquin Tab] 500 mg PO Q48H #5 tablet
[2016-11-10] MEDS: ATORVASTATIN 20 MG TABLET PO SCH (20:58)
[2016-11-11] MEDS: ALBUTEROL 2.5 MG/3 ML NEB RESP TX SCH ×7 (00:30→20:22)
[2016-11-11] MEDS: GENTAMICIN 0.3% OPH SOLN 5 ML BOTTLE LEFT EYE SCH ×6 (02:24→22:01)
[2016-11-11] MEDS: AZTREONAM 2,000 MG in SODIUM CHLORIDE 0.9% 100 ML IV SCH ×3 (05:05→22:00)
--- NOTE | 2016-11-11 08:10 | Cardiology Progress Note ---
Assessment and Plan (1) Sinus tachycardia Status: Acute Assessment and plan: The patient's tachycardia has resolved and has been well-controlled on her current medical regimen. Currently her cardiac status is quite stable. I don' t see any reason to make any changes in her cardiac management at this time. Overall she seems to be improving. I'm going to drop off her case at this time. Please feel free to call me for any cardiac related issues. Current Visit: Yes (2) Community acquired pneumonia Status: Acute Current Visit: Yes (3) Generalized weakness Status: Acute Current Visit: Yes (4) Acute exacerbation of chronic obstructive airways disease Status: Resolved Current Visit: Yes (5) TAVO (acute kidney injury) Status: Acute Current Visit: No (6) COPD (chronic obstructive pulmonary disease) Status: Chronic Current Visit: No Qualifiers: COPD type: COPD with acute exacerbation Qualified Code(s): J44.1 - Chronic obstructive pulmonary disease with (acute) exacerbation (7) History of DVT (deep vein thrombosis) Status: Chronic Current Visit: No (8) Chronic anticoagulation Status: Acute Current Visit: No Cardiology - PN: Subj Interval history: The patient seems to be steadily improving. Her breathing is improved. She complains of allover body soreness. She has clearly reproducible chest wall soreness as well as diffuse generalized soreness in her extremities. This makes me suspicious of vitamin D deficiency some wound check a level. Her old notes, labs, and reports were all reviewed today. From a cardiac standpoint, her rate/rhythm has been well-controlled/stable. Current Medications Acetaminophen (Tylenol Tab) 325 mg PO Q4H PRN PRN Reason: fever, headache/body aches Albuterol Sulfate (Proventil Neb) 2.5 mg RESP TX RT Q4H REPLACED BY [facility] Last Admin: 11/11/16 04:17 Dose: 2.5 mg Albuterol/Ipratropium (Duoneb) 3 ml RESP TX RT Q4H PRN PRN Reason: Shortness of Breath/Wheezing Aspirin () 325 mg PO DAILY REPLACED BY [facility] Last Admin: 11/10/16 09:15 Dose: 325 mg Atorvastatin [place] (Lipitor) 20 mg PO BEDTIME REPLACED BY [facility] Last Admin: 11/10/16 20:58 Dose: 20 mg Ergocalciferol (Drisdol) 50,000 unit PO Q7D REPLACED BY [facility] Last Admin: 01/08/17 09:15 Dose: 50,000 unit Gentamicin Sulfate (Garamycin Oph Soln) 2 drop LEFT EYE Q4HR REPLACED BY [facility] Last Admin: 11/11/16 05:19 Dose: 2 drop Guaifenesin (Mucinex) 600 mg PO BID REPLACED BY [facility] Last Admin: 11/10/16 20:57 Dose: 600 mg Guaifenesin (Robitussin) 10 ml PO Q4H PRN PRN Reason: Cough Last Admin: 11/09/16 20:30 Dose: 10 ml Aztreonam 2,000 mg/ Sodium (Chloride) 100 mls @ 100 mls/hr IV Q6H REPLACED BY [facility] Last Admin: 11/11/16 05:05 Dose: 100 mls/hr Doxycycline Hyclate 100 mg/ (Sodium Chloride) 100 mls @ 100 mls/hr IV Q12H REPLACED BY [facility] Last Admin: 11/10/16 22:46 Dose: 100 mls/hr Iron/Multivitamins/Folic Acid (Centrum Tab) 1 tablet PO DAILY REPLACED BY [facility] Last Admin: 11/10/16 09:15 Dose: 1 tablet Magnesium Chloride (Slow Mag) 64 mg PO DAILY REPLACED BY [facility] Last Admin: 11/10/16 09:15 Dose: 64 mg Magnesium Hydroxide (Milk Of Magnesia) 30 ml PO Q12HR PRN PRN Reason: Constipation Metoprolol Tartrate (Lopressor Tab) 25 mg PO BID REPLACED BY [facility] Last Admin: 11/10/16 20:57 Dose: 25 mg Nitroglycerin (Nitrostat) 0.4 mg SL Q5M PRN PRN Reason: Chest Pain Last Admin: 11/06/16 19:40 Dose: 0.4 mg Ondansetron HCl (Zofran Inj) 4 mg IV Q4H PRN PRN Reason: Nausea Oxycodone/Acetaminophen (Percocet 5-325) 1 tablet PO Q8HR PRN PRN Reason: Pain Last Admin: 11/09/16 11:02 Dose: 1 tablet Pantoprazole Sodium (Protonix Tab) 40 mg PO DAILY REPLACED BY [facility] Last Admin: 11/10/16 09:15 Dose: 40 mg Petrolatum (Aquaphor) 1 applic TOP DAILY REPLACED BY [facility] Last Admin: 11/10/16 09:14 Dose: 1 applic Phenol (Chloraseptic [place]) 5 spray PO Q2H PRN PRN Reason: Sore Throat Last Admin: 11/08/16 10:50 Dose: 5 spray Polyvinyl Alcohol (Artificial Tears Oph Soln) 2 drop BOTH EYES Q6H PRN PRN Reason: dry eyes Last Admin: 11/08/16 03:32 Dose: 2 drop Prednisone () 20 mg PO DAILY REPLACED BY [facility] Last Admin: 11/10/16 09:15 Dose: 20 mg Propylthiouracil () 50 mg PO BID REPLACED BY [facility] Last Admin: 11/10/16 20:58 Dose: 50 mg Fluticasone/Salmeterol (Advair 500-50) 1 puff INH BID REPLACED BY [facility] Last Admin: 11/10/16 22:50 Dose: 1 puff Tramadol HCl (Ultram) 50 mg PO Q6H PRN PRN Reason: Pain Last Admin: 11/07/16 22:43 Dose: 50 mg Exam (Progress Note) - Constitutional Vitals: Period Temp Pulse Resp BP Sys/Tracey Pulse Ox Last 24 Hr 97.3 F-98.5 F 80-93 18-20 118-157/61-73 91-99 Exam: General: Frail, elderly, chronically ill-appearing HEENT: Normocephalic, atraumatic, left eye remains closed Neck: Supple Neck, Midline Trachea Cardiac: Regular Rhythm, 2 out of 6 Murmur, no gallop, no rub Lungs: Clear to Ascultation, No Wheeze, Rales, Rhonchi Neuro: Cranial Nerve 2-12 Intact, diffuse generalized weakness Abdomen: Soft, Active Bowel Sounds, No Masses, No Pulsations/Bruits Skin: Ecchymosis over upper extremities and chronic venous stasis changes over lower sternum his below-knee Extremities: No Clubbing, No Cyanosis, mild to moderate chronic-appearing lower extremity Edema, Normal Upper Extr. Pulses Musculoskeletal: Diffuse musculoskeletal tenderness to palpation Psychiatric: The patient is alert and oriented. The patient has a flat affect but does not appear to be anxious or depressed. Result/EKG - Labs CBC & BMP: 11/10/16 06:07 11/10/16 06:07 Lab Results: I have reviewed the past 24 hour labs - EKG EKG results: interpreted by me Specialty Discharge - Follow Up or Referrals - Discharge Medications No Action Propylthiouracil 50 mg PO BID Polyvinyl Alcohol 1.4% Oph Saray [Artificial Tears Oph Soln] 2 drop BOTH EYES Q6H PRN PRN Reason: dry eyes Omeprazole [Prilosec] 20 mg PO DAILY Albuterol Sulfate [Ventolin HFA] 2 puff INH Q4H PRN PRN Reason: Shortness Of Breath/Wheezing Albuterol/Ipratropium Neb [Duoneb] 3 ml RESP TX RT Q6H PRN PRN Reason: Shortness Of Breath/Wheezing Ondansetron Tab [Zofran Tab] 4 mg PO Q4HR PRN PRN Reason: Nausea Magnesium Chloride [Slow Mag] 64 mg PO DAILY Magnesium Hydroxide Susp [Milk of Magnesia] 30 ml PO Q12HR PRN PRN Reason: Constipation Aclidinium [place] [Tudorza Pressair] 400 mcg INH BID Ergocalciferol [Drisdol] 50,000 unit PO Q7D Skin Healing Oint (Aquaphor) [Aquaphor] 1 applic TOP DAILY Multivitamin [One Daily] 1 each PO DAILY Furosemide Tab [Lasix Tab] 40 mg PO BID DIURETIC Ibuprofen 200 mg PO Q4HR PRN PRN Reason: Fever Benzonatate [Tessalon] 100 mg PO Q4HR PRN PRN Reason: Cough Spironolactone [Aldactone] 50 mg PO DAILY Fluticasone/Salmeterol 500-50 [Advair 500-50] 1 puff INH BID Warfarin [Coumadin] 3 mg PO DAILY@1800 Aspirin Tab 325 mg PO DAILY tablet Atorvastatin [Lipitor] 20 mg PO BEDTIME tablet Metoprolol Tartrate Tab [Lopressor Tab] 12.5 mg PO BID tablet oxyCODONE/ACETAMINOPHEN 5-325 [Percocet 5-325] 1 tablet PO Q8HR PRN #10 tablet PRN Reason: Pain traMADol TAB [Ultram] 50 mg PO Q6H PRN #10 PRN Reason: Pain Levofloxacin Tab [Levaquin Tab] 500 mg PO Q48H #5 tablet
[2016-11-11] MEDS: METOPROLOL TARTRATE 25 MG TABLET PO SCH ×2 (09:00→21:59)
[2016-11-11] MEDS: ASPIRIN 325 MG TABLET PO SCH (09:00)
[2016-11-11] MEDS: PROPYLTHIOURACIL 50 MG TABLET PO SCH ×2 (09:00→21:59)
[2016-11-11] MEDS: predniSONE 20 MG TABLET PO SCH (09:00)
[2016-11-11] MEDS: MAGNESIUM CHLORIDE 64 MG TABLET PO SCH (09:00)
[2016-11-11] MEDS: MULTIVITAMIN (CENTRUM) TABLET PO SCH (09:00)
[2016-11-11] MEDS: guaiFENesin 200 MG/10 ML UDCUP PO PRN (09:00)
[2016-11-11] MEDS: PANTOPRAZOLE 40 MG TABLET PO SCH (09:00)
[2016-11-11] MEDS: FLUTICASONE/SALMETEROL 500-50 DISKUS 14 DOSE INH SCH ×2 (09:01→21:58)
[2016-11-11] MEDS: SKIN HEALING OINT (AQUAPHOR) 50 GM TUBE TOP SCH (09:01)
[2016-11-11] MEDS: PHENOL 1.4% THROAT SPRAY 177 ML BOTTLE PO PRN (09:08)
[2016-11-11] MEDS: DOXYCYCLINE HYCLATE INJ 100 MG in SODIUM CHLORIDE 0.9% 100 ML IV SCH ×2 (10:19→23:08)
[2016-11-11] MEDS: traMADol 50 MG TABLET PO PRN ×2 (10:29→21:59)
[2016-11-11 13:36] LABS: INR 2.1
[2016-11-11 13:40] LABS: PT Patient Result 23.6 SECS
--- NOTE | 2016-11-11 16:28 | Post Interventional Procedure ---
Pre-op diagnosis: pneumonia, conjunctivitis Post-op diagnosis: same Procedure: PICC placement Contrast: none Flouroscopy: 2.4 min Radiologist: Abrahan Tao Anesthesia: local Specimens: none sent Estimated blood loss: minimal (2 mL) Complications: none Condition: stable Description/Findings: Initially, the cephalic vein was attempted to be cannulated which was unsuccessful. Following this, the basilic vein was cannulated without difficulty. A 5 [place] dual lumen power PICC line was placed and secured in position. The catheter is ready for use.
--- NOTE | 2016-11-11 16:33 | Ultrasound Report ---
IR PICC line insertion, US guide vascular access IR PICC Placement Peripherally-inserted central catheter (PICC) placement using ultrasound and fluoroscopic guidance Ultrasound of the left upper extremity Clinical Information: 80-year-old female admitted with multiple cardiac issues including tachycardia, extensive bruising due to supratherapeutic INR and probable pneumonia. Possible conjunctivitis versus orbital cellulitis. PICC line is requested for venous access and antibiotic administration. Physician: Dr. Tao Procedure: The patient was advised of the benefits, risks, and alternatives of the procedure and informed consent was obtained. A time out was performed with verification of the patient's name, MRN, site of procedure, and type of procedure to be performed. The patient was positioned in the supine position on the angiographic table. The site was prepped and draped in the usual sterile fashion. Additionally, maximal sterile barrier technique was employed for the procedure. A brick dropper radiograph reveals no relevant abnormality. Ultrasound examination of the left arm demonstrates patent and compressible brachial and basilic veins. The cephalic vein was also noted to be patent and was initially attempted for cannulation, which was unsuccessful. The left arm was prepped and draped in the usual sterile fashion. The left basilic vein was again identified. Using ultrasound guidance, a 21 gauge needle was used to access the vein. A permanent ultrasound recording of vascular access was obtained for the patient's record. A 0.018" cope wire was then advanced into the vein. The needle was exchanged for a 5 Malagasy peel-away sheath. A 5 Malagasy double lumen Bard Solo PICC catheter was measured and trimmed to the 44 cm chance. The PICC line was advanced through the sheath and into the central circulation. The catheter tip was positioned at the cavo-atrial junction. The peel-away sheath was then removed. At the conclusion of the procedure, the catheter was secured in place using a Stat-Lock device. A sterile dressing was applied. The lumens aspirate and flush freely. The catheter is ready for immediate use. The patient tolerated the procedure well and was returned to the PRU in stable condition. EBL: < 5 mL. Complications: None. Fluoroscopy time: 2.4 minutes Conclusion: Successful placement of a 5 Malagasy double lumen Bard Solo power injectable PICC via the left basilic vein. The catheter is ready for immediate use. PROCEDURE INTERPRETED AT [facility] DEPARTMENT OF RADIOLOGY Final Report Signed by: Abrahan Tao
--- NOTE | 2016-11-11 17:58 | Hospitalist Progress Note ---
Assessment and Plan (1) Community acquired pneumonia Problem details: c/w abx Status: Acute Current Visit: Yes (2) Acute exacerbation of chronic obstructive airways disease Problem details: improved Status: Resolved Current Visit: Yes (3) Sinus tachycardia Status: Acute Current Visit: Yes (4) MRSA (methicillin resistant staph aureus) culture positive Problem details: From eye secretion Cx. d/w eye doctor. ? vancomycin. Check Sn Status: Acute Current Visit: Yes (5) Supratherapeutic INR Problem details: improved. INR today 2.1. Status: Acute Current Visit: Yes (6) Chronic anticoagulation Status: Acute Current Visit: No (7) TAVO (acute kidney injury) Problem details: improving. monitor Cr , serum cr 1.1 Status: Acute Current Visit: No (8) Generalized weakness Status: Acute Current Visit: Yes (9) History of DVT (deep vein thrombosis) Problem details: A/C Status: Chronic Current Visit: No Hospitalist: Subjective Interval history: pt still having some coughing and her Lt eyelids appear to have 2 small stitches from some eye procedure done last week. I spoke with Opthalmologist and he will plan to send someone to see pt and take stitches off. Pt denies CP but having occasional SOB. Pt on A/C for afib and reported h/o DVT in legs a while ago. Exam - Constitutional Vitals: Period Temp Pulse Resp BP Sys/Tracey Pulse Ox Last 24 Hr 97.7 F-98.6 F 69-99 18-30 103-157/51-73 83-99 Exam: Gen: a&ox3, NAD, chronically ill looking Neck: no JVD, no thyroid enlargement Lung:intermittent rhonchi, no wheezing abd: soft, NT heart: s1s2, IRR skin: warm, frail, multiple ecchymotic areas Psych: cooperative HEENT: lt eyelids approximated by 2 small stitches Results - Labs CBC & BMP: 11/10/16 06:07 11/10/16 06:07 Specialty Discharge - Follow Up or Referrals - Discharge Medications No Action Propylthiouracil 50 mg PO BID Polyvinyl Alcohol 1.4% Oph Saray [Artificial Tears Oph Soln] 2 drop BOTH EYES Q6H PRN PRN Reason: dry eyes Omeprazole [Prilosec] 20 mg PO DAILY Albuterol Sulfate [Ventolin HFA] 2 puff INH Q4H PRN PRN Reason: Shortness Of Breath/Wheezing Albuterol/Ipratropium Neb [Duoneb] 3 ml RESP TX RT Q6H PRN PRN Reason: Shortness Of Breath/Wheezing Ondansetron Tab [Zofran Tab] 4 mg PO Q4HR PRN PRN Reason: Nausea Magnesium Chloride [Slow Mag] 64 mg PO DAILY Magnesium Hydroxide Susp [Milk of Magnesia] 30 ml PO Q12HR PRN PRN Reason: Constipation Aclidinium [place] [Tudorza Pressair] 400 mcg INH BID Ergocalciferol [Drisdol] 50,000 unit PO Q7D Skin Healing Oint (Aquaphor) [Aquaphor] 1 applic TOP DAILY Multivitamin [One Daily] 1 each PO DAILY Furosemide Tab [Lasix Tab] 40 mg PO BID DIURETIC Ibuprofen 200 mg PO Q4HR PRN PRN Reason: Fever Benzonatate [Tessalon] 100 mg PO Q4HR PRN PRN Reason: Cough Spironolactone [Aldactone] 50 mg PO DAILY Fluticasone/Salmeterol 500-50 [Advair 500-50] 1 puff INH BID Warfarin [Coumadin] 3 mg PO DAILY@1800 Aspirin Tab 325 mg PO DAILY tablet Atorvastatin [Lipitor] 20 mg PO BEDTIME tablet Metoprolol Tartrate Tab [Lopressor Tab] 12.5 mg PO BID tablet oxyCODONE/ACETAMINOPHEN 5-325 [Percocet 5-325] 1 tablet PO Q8HR PRN #10 tablet PRN Reason: Pain traMADol TAB [Ultram] 50 mg PO Q6H PRN #10 PRN Reason: Pain Levofloxacin Tab [Levaquin Tab] 500 mg PO Q48H #5 tablet
[2016-11-11] MEDS: ATORVASTATIN 20 MG TABLET PO SCH (21:59)
[2016-11-12] MEDS: ALBUTEROL 2.5 MG/3 ML NEB RESP TX SCH ×7 (01:49→23:46)
[2016-11-12] MEDS: GENTAMICIN 0.3% OPH SOLN 5 ML BOTTLE LEFT EYE SCH ×6 (01:51→21:26)
[2016-11-12] MEDS: oxyCODONE/ACETAMINOPHEN 5-325 MG TABLET PO PRN (01:56)
[2016-11-12] MEDS: AZTREONAM 2,000 MG in SODIUM CHLORIDE 0.9% 100 ML IV SCH ×4 (04:51→22:49)
[2016-11-12] MEDS: PROPYLTHIOURACIL 50 MG TABLET PO SCH ×2 (10:23→21:27)
[2016-11-12] MEDS: MULTIVITAMIN (CENTRUM) TABLET PO SCH (10:23)
[2016-11-12] MEDS: predniSONE 20 MG TABLET PO SCH (10:23)
[2016-11-12] MEDS: MAGNESIUM CHLORIDE 64 MG TABLET PO SCH (10:23)
[2016-11-12] MEDS: ASPIRIN 325 MG TABLET PO SCH (10:23)
[2016-11-12] MEDS: PANTOPRAZOLE 40 MG TABLET PO SCH (10:24)
[2016-11-12] MEDS: traMADol 50 MG TABLET PO PRN (10:24)
[2016-11-12] MEDS: METOPROLOL TARTRATE 25 MG TABLET PO SCH ×2 (10:25→21:32)
[2016-11-12] MEDS: FLUTICASONE/SALMETEROL 500-50 DISKUS 14 DOSE INH SCH ×2 (10:25→21:27)
[2016-11-12] MEDS: SKIN HEALING OINT (AQUAPHOR) 50 GM TUBE TOP SCH (10:33)
[2016-11-12] MEDS: DOXYCYCLINE HYCLATE INJ 100 MG in SODIUM CHLORIDE 0.9% 100 ML IV SCH ×2 (10:39→21:32)
[2016-11-12] MEDS ORDERED: ONDANSETRON ODT 4 MG TABLET PO PRN (13:24)
--- NOTE | 2016-11-12 13:27 | Hospitalist Progress Note ---
Assessment and Plan - Time spent with patient Time spent with patient: Greater than 30 minutes (1) Community acquired pneumonia Status: Acute Assessment and plan: c/w abx Current Visit: Yes (2) Acute exacerbation of chronic obstructive airways disease Problem details: improved Status: Resolved Current Visit: Yes (3) Sinus tachycardia Status: Acute Assessment and plan: Cardiology following, improving Current Visit: Yes (4) MRSA (methicillin resistant staph aureus) culture positive Problem details: From eye secretion Cx. Status: Acute Assessment and plan: Discussed with slab miller operator by phone, patient to be seen by someone from his office Current Visit: Yes (5) Supratherapeutic INR Status: Acute Assessment and plan: improved. INR today 2.1. Current Visit: Yes (6) Chronic anticoagulation Status: Acute Current Visit: No (7) TAVO (acute kidney injury) Status: Acute Assessment and plan: improving. monitor Cr , last serum cr 1.1 Current Visit: No (8) Generalized weakness Status: Acute Current Visit: Yes (9) History of DVT (deep vein thrombosis) Status: Chronic Assessment and plan: A/C, maintain INR 2-3 Current Visit: No Hospitalist: Subjective Interval history: Patient feeling better today, so SOB and coughing have improved, no fever or chills reported overnight, no nausea or vomiting, no chest pain. No diarrhea or melena or hemoptysis or hematochezia or hematemesis Exam - Constitutional Vitals: Period Temp Pulse Resp BP Sys/Tracey Pulse Ox Last 24 Hr 97.4 F-98.5 F 52-89 12-18 103-131/51-73 96-100 Exam: Gen: a&ox3, NAD, chronically ill looking Neck: no JVD, no thyroid enlargement Lung:intermittent rhonchi, no wheezing abd: soft, NT heart: s1s2, IRR skin: warm, frail, multiple ecchymotic areas Psych: cooperative HEENT: lt eyelids approximated by 2 small stitches Results - Labs CBC & BMP: 11/10/16 06:07 11/10/16 06:07 Specialty Discharge - Follow Up or Referrals - Discharge Medications No Action Propylthiouracil 50 mg PO BID Polyvinyl Alcohol 1.4% Oph Saray [Artificial Tears Oph Soln] 2 drop BOTH EYES Q6H PRN PRN Reason: dry eyes Omeprazole [Prilosec] 20 mg PO DAILY Albuterol Sulfate [Ventolin HFA] 2 puff INH Q4H PRN PRN Reason: Shortness Of Breath/Wheezing Albuterol/Ipratropium Neb [Duoneb] 3 ml RESP TX RT Q6H PRN PRN Reason: Shortness Of Breath/Wheezing Ondansetron Tab [Zofran Tab] 4 mg PO Q4HR PRN PRN Reason: Nausea Magnesium Chloride [Slow Mag] 64 mg PO DAILY Magnesium Hydroxide Susp [Milk of Magnesia] 30 ml PO Q12HR PRN PRN Reason: Constipation Aclidinium [place]ace [Tudorza Pressair] 400 mcg INH BID Ergocalciferol [Drisdol] 50,000 unit PO Q7D Skin Healing Oint (Aquaphor) [Aquaphor] 1 applic TOP DAILY Multivitamin [One Daily] 1 each PO DAILY Furosemide Tab [Lasix Tab] 40 mg PO BID DIURETIC Ibuprofen 200 mg PO Q4HR PRN PRN Reason: Fever Benzonatate [Tessalon] 100 mg PO Q4HR PRN PRN Reason: Cough Spironolactone [Aldactone] 50 mg PO DAILY Fluticasone/Salmeterol 500-50 [Advair 500-50] 1 puff INH BID Warfarin [Coumadin] 3 mg PO DAILY@1800 Aspirin Tab 325 mg PO DAILY tablet Atorvastatin [Lipitor] 20 mg PO BEDTIME tablet Metoprolol Tartrate Tab [Lopressor Tab] 12.5 mg PO BID tablet oxyCODONE/ACETAMINOPHEN 5-325 [Percocet 5-325] 1 tablet PO Q8HR PRN #10 tablet PRN Reason: Pain traMADol TAB [Ultram] 50 mg PO Q6H PRN #10 PRN Reason: Pain Levofloxacin Tab [Levaquin Tab] 500 mg PO Q48H #5 tablet
[2016-11-12 14:50] LABS: Hematocrit 31.3 VOL% (35.7-47.0); Hemoglobin 9.5 GM/DL (12.0-16.0); Mean Corpuscular HGB Conc 30.4 GM/DL (32-36); Mean Corpuscular Hemoglobin 26 PG (27-34); Mean Corpuscular Volume 85.8 FL (87-102); Mean Platelet Volume 10.8 FL (9.6-12.0); Platelet Count 200 10*3/uL (130-400); Red Blood Count 3.65 10*6/uL (3.8-5.5); White Blood Count 11.2 10*3/uL (4.5-13.71)
[2016-11-12 15:09] LABS: Calcium 8.5 MG/DL (8.5-10.1); Osmolality,Calculated 300.7 MOS/KG (273-304); Potassium 4.7 MMOL/L (3.5-5.1)
[2016-11-12] MEDS: ATORVASTATIN 20 MG TABLET PO SCH (21:27)
[2016-11-13] MEDS: GENTAMICIN 0.3% OPH SOLN 5 ML BOTTLE LEFT EYE SCH ×6 (02:17→21:05)
[2016-11-13] MEDS: ALBUTEROL 2.5 MG/3 ML NEB RESP TX SCH ×6 (03:58→23:01)
[2016-11-13] MEDS: AZTREONAM 2,000 MG in SODIUM CHLORIDE 0.9% 100 ML IV SCH ×4 (04:44→21:09)
[2016-11-13 05:37] LABS: Calcium 8.1 MG/DL (8.5-10.1); Osmolality,Calculated 299.3 MOS/KG (273-304); Potassium 3.9 MMOL/L (3.5-5.1)
[2016-11-13] MEDS: METOPROLOL TARTRATE 25 MG TABLET PO SCH ×2 (09:00→21:00)
[2016-11-13] MEDS: PANTOPRAZOLE 40 MG TABLET PO SCH (09:01)
[2016-11-13] MEDS: MAGNESIUM CHLORIDE 64 MG TABLET PO SCH (09:01)
[2016-11-13] MEDS: ASPIRIN 325 MG TABLET PO SCH (09:01)
[2016-11-13] MEDS: predniSONE 20 MG TABLET PO SCH (09:01)
[2016-11-13] MEDS: MULTIVITAMIN (CENTRUM) TABLET PO SCH (09:01)
[2016-11-13] MEDS: PROPYLTHIOURACIL 50 MG TABLET PO SCH ×2 (09:01→20:59)
[2016-11-13] MEDS: SKIN HEALING OINT (AQUAPHOR) 50 GM TUBE TOP SCH (09:01)
[2016-11-13] MEDS: FLUTICASONE/SALMETEROL 500-50 DISKUS 14 DOSE INH SCH ×2 (09:02→21:04)
[2016-11-13] MEDS: DOXYCYCLINE HYCLATE INJ 100 MG in SODIUM CHLORIDE 0.9% 100 ML IV SCH ×2 (09:22→22:29)
[2016-11-13 10:38] LABS: INR 1.3; PT Patient Result 13.9 SECS; Partial Thromboplastin Time 28.4 SECS (0-40)
--- NOTE | 2016-11-13 11:52 | Hospitalist Progress Note ---
Assessment and Plan (1) Community acquired pneumonia Status: Acute Assessment and plan: c/w abx Current Visit: Yes (2) Acute exacerbation of chronic obstructive airways disease Problem details: improved Status: Resolved Current Visit: Yes (3) Sinus tachycardia Status: Acute Assessment and plan: Cardiology following, improving Current Visit: Yes (4) MRSA (methicillin resistant staph aureus) culture positive Problem details: From eye secretion Cx. Status: Acute Assessment and plan: Discussed with patient admitting representative by phone, patient to be seen by someone from his office. Awaiting. Current Visit: Yes (5) Supratherapeutic INR Status: Acute Assessment and plan: improved. last INR 2.1. Check Daily INR, resume coumadin, if INR <2 put pt on lovenox therapeutic. Current Visit: Yes (6) Chronic anticoagulation Status: Acute Current Visit: No (7) TAVO (acute kidney injury) Status: Acute Assessment and plan: improving. monitor Cr , serum cr 0.9 Current Visit: No (8) Generalized weakness Status: Acute Current Visit: Yes (9) History of DVT (deep vein thrombosis) Status: Chronic Assessment and plan: A/C, maintain INR 2-3 Current Visit: No Hospitalist: Subjective Interval history: Patient feeling better today stating her cough and SOB have improved. The left eyelids states she is still on. Patient denies chest pain or shortness of breath or nausea or vomiting or fever or chills. Exam - Constitutional Vitals: Period Temp Pulse Resp BP Sys/Tracey Pulse Ox Last 24 Hr 97.8 F-98.9 F 54-86 16-20 108-175/50-66 92-99 Exam: Gen: a&ox3, NAD, chronically ill looking Neck: no JVD, no thyroid enlargement Lung:intermittent rhonchi, no wheezing abd: soft, NT, ND heart: s1s2, IRR skin: warm, frail, multiple ecchymotic areas Psych: cooperative HEENT: lt eyelids approximated by 2 small stitches Results - Labs CBC & BMP: 11/12/16 14:34 11/13/16 04:45
[2016-11-13] MEDS ORDERED: WARFARIN 4 MG TABLET PO ONE (14:46)
[2016-11-13] MEDS: ENOXAPARIN 60 MG/0.6 ML SYRINGE SUBCUT SCH (15:36)
[2016-11-13] MEDS: FUROSEMIDE 40 MG TABLET PO SCH (15:37)
[2016-11-13] MEDS: oxyCODONE/ACETAMINOPHEN 5-325 MG TABLET PO PRN (17:03)
[2016-11-13] MEDS ORDERED: WARFARIN 3 MG TABLET PO SCH (18:00)
[2016-11-13] MEDS: ATORVASTATIN 20 MG TABLET PO SCH (20:59)
[2016-11-13] MEDS: guaiFENesin 200 MG/10 ML UDCUP PO PRN (21:00)
[2016-11-14] MEDS: ALBUTEROL 2.5 MG/3 ML NEB RESP TX SCH ×6 (02:56→23:30)
[2016-11-14] MEDS: AZTREONAM 2,000 MG in SODIUM CHLORIDE 0.9% 100 ML IV SCH ×4 (03:02→21:37)
[2016-11-14] MEDS: ENOXAPARIN 60 MG/0.6 ML SYRINGE SUBCUT SCH ×2 (03:02→14:09)
[2016-11-14] MEDS: GENTAMICIN 0.3% OPH SOLN 5 ML BOTTLE LEFT EYE SCH ×6 (03:38→21:48)
[2016-11-14 06:42] LABS: Eosinophils # 0.2 10*3/uL (0.0-0.87); Eosinophils % 1.8 % (0.00-10.9); Hematocrit 30.4 VOL% (35.7-47.0); Hemoglobin 9.1 GM/DL (12.0-16.0); Lymphocytes # 1.7 10*3/uL (1.4-4.0); Lymphocytes % 17.2 % (21.3-54.2); Mean Corpuscular HGB Conc 29.9 GM/DL (32-36); Mean Corpuscular Hemoglobin 26 PG (27-34); Mean Corpuscular Volume 86.4 FL (87-102); Mean Platelet Volume 10.8 FL (9.6-12.0); Monocytes # 0.6 10*3/uL (0.11-0.8); Monocytes % 6.4 % (1.7-12.7); Neutrophils # 7.2 10*3/uL (1.4-7.4); Neutrophils % 73.6 % (38.7-73.9); Platelet Count 227 10*3/uL (130-400); Red Blood Count 3.52 10*6/uL (3.8-5.5); Red Cell Distribution Width 15.1 % (9.3-17.3); White Blood Count 9.8 10*3/uL (4.5-13.71)
[2016-11-14 06:59] LABS: INR 1.4; PT Patient Result 15.2 SECS
[2016-11-14 07:14] LABS: Calcium 8.6 MG/DL (8.5-10.1); Osmolality,Calculated 295.4 MOS/KG (273-304); Potassium 3.9 MMOL/L (3.5-5.1)
[2016-11-14] MEDS: PANTOPRAZOLE 40 MG TABLET PO SCH (09:00)
[2016-11-14] MEDS: MAGNESIUM CHLORIDE 64 MG TABLET PO SCH (09:00)
[2016-11-14] MEDS: SKIN HEALING OINT (AQUAPHOR) 50 GM TUBE TOP SCH (09:00)
[2016-11-14] MEDS: FLUTICASONE/SALMETEROL 500-50 DISKUS 14 DOSE INH SCH ×2 (09:00→21:41)
[2016-11-14] MEDS: ASPIRIN 325 MG TABLET PO SCH (09:00)
[2016-11-14] MEDS: MULTIVITAMIN (CENTRUM) TABLET PO SCH (09:00)
[2016-11-14] MEDS: PROPYLTHIOURACIL 50 MG TABLET PO SCH ×2 (09:01→21:33)
[2016-11-14] MEDS: METOPROLOL TARTRATE 25 MG TABLET PO SCH ×2 (09:01→21:34)
[2016-11-14] MEDS: FUROSEMIDE 40 MG TABLET PO SCH ×2 (09:01→15:13)
[2016-11-14] MEDS: DOXYCYCLINE HYCLATE INJ 100 MG in SODIUM CHLORIDE 0.9% 100 ML IV SCH ×2 (09:02→21:34)
[2016-11-14] MEDS: predniSONE 20 MG TABLET PO SCH (09:37)
[2016-11-14] MEDS: oxyCODONE/ACETAMINOPHEN 5-325 MG TABLET PO PRN (09:41)
[2016-11-14] MEDS ORDERED: WARFARIN 3 MG TABLET PO SCH (18:00)
--- NOTE | 2016-11-14 19:54 | Hospitalist Progress Note ---
Assessment and Plan - Time spent with patient Time spent with patient: Greater than 30 minutes (1) Community acquired pneumonia Status: Acute Assessment and plan: Continue antibiotics. Current Visit: Yes (2) MRSA (methicillin resistant staph aureus) culture positive Problem details: From eye secretion Cx. Status: Acute Assessment and plan: Continue antibiotics. Currently awaiting visit from opthalmologist. Current Visit: Yes (3) Sinus tachycardia Status: Acute Assessment and plan: Continue BB. Current Visit: Yes (4) Acute exacerbation of chronic obstructive airways disease Problem details: improved Status: Resolved Current Visit: Yes (5) History of DVT (deep vein thrombosis) Status: Chronic Assessment and plan: Continue SQ lovenox and warfarin. Current Visit: No Hospitalist: Subjective Interval history: No complaints no overnight events. Exam - Constitutional Vitals: Period Temp Pulse Resp BP Sys/Tracey Pulse Ox Last 24 Hr 96.4 F-98.2 F 70-90 16-20 99-135/53-80 91-98 General appearance: no acute distress - Head Head exam: Present: normocephalic, atraumatic - Eye Eye exam: Present: EOMI Pupils: Present: KEEGAN - ENT ENT exam: Present: normal exam - Neck Neck exam: Present: normal inspection - Respiratory Respiratory exam: Present: clear to auscultation bilaterally. Absent: rhonchi, wheezes - Cardiovascular Cardiovascular exam: Present: regular rate and rhythm. Absent: gallop, rubs, systolic murmur - GI/Abdominal GI/Abdominal exam: Present: normal bowel sounds, soft. Absent: distended, firm , guarding, tenderness, rebound - Extremities Exam Extremities exam: Present: normal inspection. Absent: calf tenderness, edema Results - Labs CBC & BMP: 11/14/16 05:59 11/14/16 05:59 Lab Results: I have reviewed the past 24 hour labs
[2016-11-14] MEDS: ATORVASTATIN 20 MG TABLET PO SCH (21:33)
[2016-11-15] MEDS: ALBUTEROL 2.5 MG/3 ML NEB RESP TX SCH ×5 (02:29→20:27)
[2016-11-15] MEDS: GENTAMICIN 0.3% OPH SOLN 5 ML BOTTLE LEFT EYE SCH ×6 (02:59→22:01)
[2016-11-15] MEDS: ENOXAPARIN 60 MG/0.6 ML SYRINGE SUBCUT SCH ×2 (02:59→15:09)
[2016-11-15] MEDS: AZTREONAM 2,000 MG in SODIUM CHLORIDE 0.9% 100 ML IV SCH ×4 (04:35→21:57)
[2016-11-15 05:15] LABS: Partial Thromboplastin Time 34.3 SECS (0-40)
[2016-11-15 05:20] LABS: INR 2.1
[2016-11-15 05:21] LABS: PT Patient Result 23.5 SECS
[2016-11-15] MEDS: MAGNESIUM CHLORIDE 64 MG TABLET PO SCH (08:22)
[2016-11-15] MEDS: PROPYLTHIOURACIL 50 MG TABLET PO SCH ×2 (08:22→20:35)
[2016-11-15] MEDS: METOPROLOL TARTRATE 25 MG TABLET PO SCH ×2 (08:22→21:00)
[2016-11-15] MEDS: ASPIRIN 325 MG TABLET PO SCH (08:22)
[2016-11-15] MEDS: PANTOPRAZOLE 40 MG TABLET PO SCH (08:22)
[2016-11-15] MEDS: MULTIVITAMIN (CENTRUM) TABLET PO SCH (08:23)
[2016-11-15] MEDS: FLUTICASONE/SALMETEROL 500-50 DISKUS 14 DOSE INH SCH ×2 (08:23→20:36)
[2016-11-15] MEDS: FUROSEMIDE 40 MG TABLET PO SCH ×2 (08:23→15:10)
[2016-11-15] MEDS: predniSONE 20 MG TABLET PO SCH (08:23)
[2016-11-15] MEDS: SKIN HEALING OINT (AQUAPHOR) 50 GM TUBE TOP SCH (08:23)
[2016-11-15] MEDS: DOXYCYCLINE HYCLATE INJ 100 MG in SODIUM CHLORIDE 0.9% 100 ML IV SCH ×2 (10:34→21:57)
--- NOTE | 2016-11-15 16:02 | Hospitalist Progress Note ---
Assessment and Plan - Time spent with patient Time spent with patient: Greater than 30 minutes (1) Community acquired pneumonia Status: Acute Assessment and plan: Continue antibiotics. Current Visit: Yes (2) MRSA (methicillin resistant staph aureus) culture positive Problem details: From eye secretion Cx. Status: Acute Assessment and plan: Continue antibiotics. No indication of infection. Current Visit: Yes (3) Sinus tachycardia Status: Acute Assessment and plan: Continue BB. Current Visit: Yes (4) Acute exacerbation of chronic obstructive airways disease Problem details: improved Status: Resolved Current Visit: Yes (5) History of DVT (deep vein thrombosis) Status: Chronic Assessment and plan: Continue SQ lovenox and warfarin. Current Visit: No Hospitalist: Subjective Interval history: Complains of bleeding at a ruptured blister site on her left leg. No overnight events. No further complaints. Exam - Constitutional Vitals: Period Temp Pulse Resp BP Sys/Tracey Pulse Ox Last 24 Hr 97.3 F-98.1 F 68-96 16-20 99-131/58-71 90-100 General appearance: no acute distress - Head Head exam: Present: normocephalic, atraumatic - Eye Eye exam: Present: EOMI Pupils: Present: KEEGAN - ENT ENT exam: Present: normal exam - Neck Neck exam: Present: normal inspection - Respiratory Respiratory exam: Present: clear to auscultation bilaterally. Absent: rhonchi, wheezes - Cardiovascular Cardiovascular exam: Present: regular rate and rhythm. Absent: gallop, rubs, systolic murmur - GI/Abdominal GI/Abdominal exam: Present: normal bowel sounds, soft. Absent: distended, firm , guarding, tenderness, rebound - Extremities Exam Extremities exam: Present: edema. Absent: calf tenderness Results - Labs CBC & BMP: 11/14/16 05:59 11/14/16 05:59 Lab Results: I have reviewed the past 24 hour labs
[2016-11-15] MEDS ORDERED: WARFARIN 1 MG TABLET PO SCH (18:00)
[2016-11-15] MEDS: oxyCODONE/ACETAMINOPHEN 5-325 MG TABLET PO PRN (20:35)
[2016-11-15] MEDS: ATORVASTATIN 20 MG TABLET PO SCH (21:00)
[2016-11-16] MEDS: ALBUTEROL 2.5 MG/3 ML NEB RESP TX SCH ×4 (00:13→11:13)
[2016-11-16] MEDS: AZTREONAM 2,000 MG in SODIUM CHLORIDE 0.9% 100 ML IV SCH ×2 (03:55→10:04)
[2016-11-16] MEDS: GENTAMICIN 0.3% OPH SOLN 5 ML BOTTLE LEFT EYE SCH ×3 (03:55→10:05)
[2016-11-16 04:52] LABS: Eosinophils # 0.2 10*3/uL (0.0-0.87); Eosinophils % 1.5 % (0.00-10.9); Hematocrit 33.2 VOL% (35.7-47.0); Hemoglobin 9.8 GM/DL (12.0-16.0); Immature Granulocytes % 0.7 %; Immature Granulocytes Absolute 0.07 #; Lymphocytes # 1.4 10*3/uL (1.4-4.0); Lymphocytes % 13.5 % (21.3-54.2); Mean Corpuscular HGB Conc 29.5 GM/DL (32-36); Mean Corpuscular Hemoglobin 26 PG (27-34); Mean Corpuscular Volume 88.3 FL (87-102); Monocytes # 0.6 10*3/uL (0.11-0.8); Monocytes % 5.8 % (1.7-12.7); Neutrophils # 8.1 10*3/uL (1.4-7.4); Neutrophils % 78.5 % (38.7-73.9); Platelet Count 247 10*3/uL (130-400); Red Blood Count 3.76 10*6/uL (3.8-5.5); Red Cell Distribution Width 15.5 % (9.3-17.3); White Blood Count 10.2 10*3/uL (4.5-13.71)
[2016-11-16 05:09] LABS: INR 2.3; Partial Thromboplastin Time 32.3 SECS (0-40)
[2016-11-16 05:25] LABS: Calcium 8.5 MG/DL (8.5-10.1); Osmolality,Calculated 297.7 MOS/KG (273-304); Potassium 3.8 MMOL/L (3.5-5.1)
[2016-11-16 05:28] LABS: PT Patient Result 25.7 SECS
[2016-11-16] MEDS: ASPIRIN 325 MG TABLET PO SCH (08:24)
[2016-11-16] MEDS: guaiFENesin 200 MG/10 ML UDCUP PO PRN (08:24)
[2016-11-16] MEDS: MAGNESIUM CHLORIDE 64 MG TABLET PO SCH (08:24)
[2016-11-16] MEDS: MULTIVITAMIN (CENTRUM) TABLET PO SCH (08:24)
[2016-11-16] MEDS: METOPROLOL TARTRATE 25 MG TABLET PO SCH (08:24)
[2016-11-16] MEDS: SKIN HEALING OINT (AQUAPHOR) 50 GM TUBE TOP SCH (08:24)
[2016-11-16] MEDS: PANTOPRAZOLE 40 MG TABLET PO SCH (08:24)
[2016-11-16] MEDS: FUROSEMIDE 40 MG TABLET PO SCH (08:24)
[2016-11-16] MEDS: PROPYLTHIOURACIL 50 MG TABLET PO SCH (08:24)
[2016-11-16] MEDS: predniSONE 20 MG TABLET PO SCH (08:24)
[2016-11-16] MEDS: FLUTICASONE/SALMETEROL 500-50 DISKUS 14 DOSE INH SCH (08:25)
[2016-11-16] MEDS: DOXYCYCLINE HYCLATE INJ 100 MG in SODIUM CHLORIDE 0.9% 100 ML IV SCH (10:04)
--- NOTE | 2016-11-16 11:24 | Discharge Summary ---
Hospital Course - Hospital Course Hospital Course: Please see H&P for details surrounding admission. Pneumonia: Mrs. Sosa was admitted with sepsis secondary to pneumonia. She was initiated on broad-spectrum IV antibiotics. She improved readily on this regimen and will be discharged for completion of treatment. Acute respiratory failure with hypercapnia: Pulmonary was counseled and the patient was placed on BiPAP antibiotics corticosteroids and O2 supplementation. She improved very well on this regimen. Recent left eye surgery with positive MRSA swab: She was initiated on doxycycline and gentamicin eyedrops. This will be continued as an outpatient for completion of therapy. She'll follow up with her tacking machine operator who is aware of the positive MRSA swab. By discharge patient met maximum benefit of hospitalization. - Time spent with patient Time with patient DS: Greater than 30 minutes Diagnosis - Discharge Diagnosis (1) Community acquired pneumonia Status: Acute (2) MRSA (methicillin resistant staph aureus) culture positive Status: Acute (3) Sinus tachycardia Status: Acute (4) Acute exacerbation of chronic obstructive airways disease Status: Resolved (5) History of DVT (deep vein thrombosis) Status: Chronic Discharge Plan - Discharge Data Disposition: Disch To Home/Self Care Condition at Discharge: Stable Discharge Diet: advance to your usual diet - Discharge Medications New Doxycycline Monohydrate 100 mg PO BID #10 tablet Gentamicin 0.3% Oph Soln [Garamycin 0.3% Oph Soln] 2 drop LEFT EYE Q4HR #1 ophthalmic solution Levofloxacin Tab [Levaquin Tab] 500 mg PO DAILY #2 tablet Continue Propylthiouracil 50 mg PO BID Polyvinyl Alcohol 1.4% Oph Saray [Artificial Tears Oph Soln] 2 drop BOTH EYES Q6H PRN PRN Reason: dry eyes Omeprazole [Prilosec] 20 mg PO DAILY Albuterol Sulfate [Ventolin HFA] 2 puff INH Q4H PRN PRN Reason: Shortness Of Breath/Wheezing Albuterol/Ipratropium Neb [Duoneb] 3 ml RESP TX RT Q6H PRN PRN Reason: Shortness Of Breath/Wheezing Ondansetron Tab [Zofran Tab] 4 mg PO Q4HR PRN PRN Reason: Nausea Magnesium Chloride [Slow Mag] 64 mg PO DAILY Magnesium Hydroxide Susp [Milk of Magnesia] 30 ml PO Q12HR PRN PRN Reason: Constipation Aclidinium [place] [Tudorza Pressair] 400 mcg INH BID Ergocalciferol [Drisdol] 50,000 unit PO Q7D Skin Healing Oint (Aquaphor) [Aquaphor] 1 applic TOP DAILY Multivitamin [One Daily] 1 each PO DAILY Furosemide Tab [Lasix Tab] 20 mg PO BID DIURETIC Ibuprofen 200 mg PO Q4HR PRN PRN Reason: Fever Benzonatate [Tessalon] 100 mg PO Q4HR PRN PRN Reason: Cough Spironolactone [Aldactone] 50 mg PO DAILY Fluticasone/Salmeterol 500-50 [Advair 500-50] 1 puff INH BID Warfarin [Coumadin] 2 mg PO DAILY@1800 Aspirin Tab 325 mg PO DAILY tablet Atorvastatin [Lipitor] 20 mg PO BEDTIME tablet Metoprolol Tartrate Tab [Lopressor Tab] 12.5 mg PO BID tablet oxyCODONE/ACETAMINOPHEN 5-325 [Percocet 5-325] 1 tablet PO Q8HR PRN #10 tablet PRN Reason: Pain traMADol TAB [Ultram] 50 mg PO Q6H PRN #10 PRN Reason: Pain - Follow Up or Referral - Forms/Instructions Instructions: Doxycycline (By mouth), Gentamicin (Into the eye), Levofloxacin ( By mouth), Conjunctivitis (DC), Sepsis (DC), COPD Exacerbation, Procurement Engineer (GEN) Exam - Constitutional Vitals: Period Temp Pulse Resp BP Sys/Tracey Pulse Ox Last 24 Hr 97.9 F-98.6 F 58-95 16-20 102-123/53-65 90-100 General appearance: normal weight, no acute distress - Head Head exam: Present: normal inspection, normocephalic, atraumatic - Eye Eye exam: Present: other (left eye is stitched closed, no drainage or erythema present) - ENT ENT exam: Present: normal exam - Respiratory Respiratory exam: Present: clear to auscultation bilaterally - Cardiovascular Cardiovascular exam: Present: regular rate and rhythm - GI/Abdominal GI/Abdominal exam: Present: normal bowel sounds - Extremities Exam Extremities exam: Present: normal inspection Discharge Results Procedures and tests throughout hospitalization: Pending Orders 11/17/16 04:00 PT & PTT IN AM 11/18/16 04:00 PT & PTT IN AM Labs on day of discharge: Labs from last 24 hours 11/16/16 11/16/16 11/16/16 03:58 03:58 03:58 WBC 10.2 RBC 3.76 L Hgb 9.8 L Hct 33.2 L MCV 88.3 MCH 26 L MCHC 29.5 L RDW 15.5 Plt Count 247 MPV 11.0 Neut % (Auto) 78.5 H Lymph % (Auto) 13.5 L [place] % (Auto) 5.8 Eos % (Auto) 1.5 Baso % (Auto) 0.0 Neut # (Auto) 8.1 H Lymph # (Auto) 1.4 [place] # (Auto) 0.6 Eos # (Auto) 0.2 Baso # (Auto) 0.0 Immature Gran % 0.7 Nucleated RBC % 0.0 Immature Gran # 0.07 Nucleated RBCs # 0.00 INR 2.3 PT Patient/Control Mix 25.7 Circ Anticoag PTT 32.3 Sodium 145 Potassium 3.8 Chloride 104 Carbon Dioxide 35 H Anion Gap 9.8 BUN 22 H Creatinine 1.10 H GFR Calculation 47 BUN/Creatinine Ratio 20.00 Glucose 233 H Calculated Osmolality 297.7 Calcium 8.5 DS: Provider Date of admission: 11/05/16 20:07 Primary care physician: Marcellus Gomez MD Attending physician on admission: Nikki Burt MD Consults: 11/05/16 22:20 Consult to Pastoral Services [CONS] Routine Comment: Pastoral Screen: Request Review Nurse Visit Pastoral Screen Source of Request: Patient 11/05/16 22:49 Consult to Pharmacy [CONS] Routine Reason for Pharmacy Consult: Dose/Manage Vancomycin 11/05/16 22:50 Consult to Pharmacy [CONS] Routine Reason for Pharmacy Consult: Adjust Meds Renal Funct 11/08/16 17:25 Consult to Physician [CONS] Routine Comment: Consulting Provider: Rony Morgan Consult to Specialist Group: Cardiology Person Notified: DR. Morgan Date Notified: 11/08/16 Time Notified: 18:38 Consult Notification Comment: seeing pt now. Discharging clinician: Sherice Ortiz MD Expected date of discharge: 11/16/16
[2016-11-16 12:27] VITALS: BP 125/67
== END 2016-11-16 13:49 | disposition home or self-care (01) | DRG 871 ==
LOC: EDBD → EDUNIT# → N.ED 18:12 → SUATTDRO 20:07 → N.EDINP 20:07 → N.ICU 20:36 → N.5E 11-06 17:55
PROVIDERS: ADMIT Family Medicine; ATTEND Student in an Organized Health Care Education/Training Program

== ENCOUNTER 2016-12-26 14:01 | Inpatient (IN) ==
--- NOTE | 2016-12-26 14:29 | EKG Report ---
Stationary ECG Study [facility] ER Test Date: 12/26/2016 2:23:06 PM Pat Name: WILIAM CASON Department: Room: Gender: F Millwright Instructor: IVAN : 1935 Requested by: Ganesh Cardona Order Number: [id number] Reading MD: FAIZAN SHELDON Intervals [place] Rate: 69 P: 72 ND: 158 QRS: 38 QRSD: 84 T: 64 QT: 364 QTc: 383 Interpretive Statements SINUS RHYTHM WITH MARKED SINUS ARRHYTHMIA INDETERMINATE AXIS Electronically Signed On 12-26-16 23:26:04 CLERICAL PRODUCTION WORKER by FAIZAN SHELDON [email or web address]
[2016-12-26] MEDS ORDERED: ASPIRIN 325 MG TABLET PO STA (14:40)
[2016-12-26 14:49] LABS: Basophils % 0.5 % (0.0-0.8); Eosinophils # 0.3 10*3/uL (0.0-0.87); Eosinophils % 3.6 % (0.00-10.9); Immature Granulocytes % 0.3 %; Immature Granulocytes Absolute 0.02 #; Lymphocytes # 1.4 10*3/uL (1.4-4.0); Lymphocytes % 18.8 % (21.3-54.2); Mean Corpuscular Hemoglobin 27 PG (27-34); Mean Corpuscular Volume 85.3 FL (87-102); Mean Platelet Volume 10.6 FL (9.6-12.0); Monocytes # 0.6 10*3/uL (0.11-0.8); Monocytes % 8.5 % (1.7-12.7); Neutrophils # 5.1 10*3/uL (1.4-7.4); Neutrophils % 68.3 % (38.7-73.9); Platelet Count 236 T/CUMM (130-400); Red Cell Distribution Width 17.2 % (9.3-17.3); White Blood Count 7.4 T/CUMM (4-12)
[2016-12-26 15:02] LABS: INR 1.9
[2016-12-26 15:03] LABS: PT Patient Result 21.4 SECS
[2016-12-26] MEDS ORDERED: ASPIRIN 325 MG TABLET ONE (15:04)
[2016-12-26 15:09] LABS: Albumin 2.8 G/DL (3.4-5.0); Bilirubin,Total 0.5 MG/DL (0.2-1.0); Calcium 8.9 MG/DL (8.5-10.1); Osmolality,Calculated 288.4 MOS/KG (273-304); Potassium 4.8 MMOL/L (3.5-5.1); Total Protein 6.4 G/DL (6.4-8.3)
--- NOTE | 2016-12-26 15:42 | Ultrasound Report ---
Exam: US venous doppler LE BI Indication: Lower extremity pain and swelling Date: 12/26/2016 2:41 PM Comparison 11/27/2015 Findings: Grayscale color flow duplex/Doppler imaging and spectral analysis waveform imaging was performed with real-time ultrasound with image stored and captured. The right common femoral, superficial femoral, popliteal saphenous veins are patent with normal augmentation and compression. There is no evidence of popliteal or Longo's cyst. Normal wave form analysis present. Normal color flow The left common femoral, superficial femoral, popliteal saphenous veins are patent with normal augmentation and compression. There is no evidence of popliteal or Longo's cyst. Normal wave form analysis present. Normal color flow Impression: 1. No DVT PROCEDURE INTERPRETED AT [facility] DEPARTMENT OF RADIOLOGY Final Report Signed by: Dr. Moshe Feliz
--- NOTE | 2016-12-26 15:53 | Emergency Department Note ---
Aleksandr Martines Brittany, am scribing for, and in the presence of, Ganesh Rhoades MD 15:02. [place] Martines Phillip K, MD, personally performed the services described in this documentation, ascribed by Vilma Brandon in my presence, and it is both accurate and complete [id number] . Arrival - Arrival Chief Complaint: Chest Pain Stated Complaint: Shortness of Breath ED Nursing Triage Note: sob and chest pain in center of chest that started this am. 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 pt has cellulitis to bilateral legs. Mode of Arrival: Stretcher Limitations: No Limitations Source: Patient Time Seen by Provider: 12/26/16 14:40 - History of Present Illness HPI Narrative: This is an 81 y/o white female,who presents to the ED with c/o chest tightness which started earlier this morning. She states she was at rest when the chest pain started. She states the chest pain does not radiate. She denies any N/V. She states she is SOB with the chest pain. She denies a cough. She is unsure of a fever. She states she was given 2 Nitro which seemed to help. She is not on blood thinners. She states she was seen once by Dr. Munoz. Pt also complains of bilateral leg swelling which has been going on "for a while". She states her legs have gradually gotten worse over the past few days. Pt has no other complaints/pain in the ED at this time. Pt has a PMHx of Onset (ago): hour(s) (Started earlier this morning) Consistency: constant Severity: moderate Quality: other (Heaviness) Allergies/Adverse Reactions: Allergies Allergy/AdvReac Type Severity Reaction Status Date / Time meperidine [From Demerol] Allergy ITCHING Verified 11/27/15 13:32 Penicillins Allergy RASH Verified 11/27/15 13:32 Sulfa (Sulfonamide Allergy RASH Verified 11/27/15 13:32 Antibiotics) tetanus toxoid, adsorbed Allergy ANAPHYLAXIS Verified 11/27/15 13:32 hydrocodone [From Lortab] AdvReac Nausea Verified 11/27/15 13:32 morphine AdvReac Hypotension Verified 11/27/15 13:32 pentazocine [From Talwin] AdvReac Hallucinati Verified 11/27/15 13:32 ng Home Medications: Home Medications Medication Instructions Recorded Confirmed Type Albuterol Sulfate [Ventolin HFA] 2 puff INH Q4H PRN 11/27/15 11/15/16 History Omeprazole [Prilosec] 20 mg PO DAILY 11/27/15 11/15/16 History Polyvinyl Alcohol 1.4% Oph Saray 2 drop BOTH EYES Q6H PRN 11/27/15 11/15/16 History [Artificial Tears Oph Soln] Propylthiouracil 50 mg PO BID 11/27/15 11/15/16 History Albuterol/Ipratropium Neb [Duoneb] 3 ml RESP TX RT Q6H PRN 12/13/15 11/15/16 History Ondansetron Tab [Zofran Tab] 4 mg PO Q4HR PRN 12/13/15 11/15/16 History Magnesium Chloride [Slow Mag] 64 mg PO DAILY 12/14/15 11/15/16 History Aclidinium [place] [Tudorza 400 mcg INH BID 04/12/16 11/15/16 History Pressair] Benzonatate [Tessalon] 100 mg PO Q4HR PRN 04/12/16 11/15/16 History Ergocalciferol [Drisdol] 50,000 unit PO Q7D 04/12/16 11/15/16 History Fluticasone/Salmeterol 500-50 1 puff INH BID 04/12/16 11/15/16 History [Advair 500-50] Furosemide Tab [Lasix Tab] 20 mg PO BID DIURETIC 04/12/16 11/15/16 History Ibuprofen 200 mg PO Q4HR PRN 04/12/16 11/15/16 History Magnesium Hydroxide Susp [Milk of 30 ml PO Q12HR PRN 04/12/16 11/15/16 History Magnesia] Multivitamin [One Daily] 1 each PO DAILY 04/12/16 11/15/16 History Skin Healing Oint (Aquaphor) 1 applic TOP DAILY 04/12/16 11/15/16 History [Aquaphor] Spironolactone [Aldactone] 50 mg PO DAILY 04/12/16 11/15/16 History Warfarin [Coumadin] 2 mg PO DAILY@1800 04/24/16 11/15/16 History Aspirin Tab 325 mg PO DAILY tablet 04/29/16 11/15/16 Rx Atorvastatin [Lipitor] 20 mg PO BEDTIME tablet 04/29/16 11/15/16 Rx Metoprolol Tartrate Tab [Lopressor 12.5 mg PO BID tablet 04/29/16 11/15/16 Rx Tab] oxyCODONE/ACETAMINOPHEN 5-325 1 tablet PO Q8HR PRN #10 tablet 04/30/16 11/15/16 Rx [Percocet 5-325] traMADol TAB [Ultram] 50 mg PO Q6H PRN #10 04/30/16 11/15/16 Rx Doxycycline Monohydrate 100 mg PO BID #10 tablet 11/16/16 Rx Gentamicin 0.3% Oph Soln 2 drop LEFT EYE Q4HR #1 ophthalmic 11/16/16 Rx [Garamycin 0.3% Oph Soln] solution Levofloxacin Tab [Levaquin Tab] 500 mg PO DAILY #2 tablet 11/16/16 Rx Review of System - Review of System 12 point system: reviewed and no additional remarkable complaints except as stated - Review of System Respiratory: Absent: cough Cardiovascular: Present: chest pain, other (Dyspnea) Gastrointestinal: Absent: abdominal pain, nausea, vomiting Additional ROS comments: Bilateral leg swelling Medical,Surgical,& Family Hx - Medical History Cardio: History of: CHF, Hypertension, CA (per pt in ) Neurology: History of: Vertigo (on occasion), Neurologocal Cancer (ovarian ca- 1989) No history of: Seizures HEENT: History of: Eye Problem (GLASSES) Endocrine: History of: Thyroid Disorder Rheumatology: History of;: Rheumatoid Arthritis Respiratory: History of: Bronchitis, COPD, Obstructive Sleep Apnea, Pulmonary Embolism (), Pneumonia, Respiratory Problems Renal: History of: Renal Problems (left nephrectomy) Gastrointestinal: History of: GERD, Hemorrhoids (MILD), Liver Problems (, HEP), GI Problems (hernia) Musculoskeletal: History of: Back/Neck Problems, Osteoporosis, Musculoskeletal Problems (severe edema.) Hematology: History of: Anemia (PAST HISTORY), Clotting Problems (history of lower extremity DVT) Reproductive: History of: Reproductive Cancer Other: History of: Anesthesia Reactions (N/V), Cancer - Surgical History Thoracic Surgeries: Patient denies;: Organ Transplant, Lobectomy Neurologic Surgeries: Patient denies: Neurologic Surgery HEENT Surgeries: Surgical HX of: Eye Surgery (CATARACT BILATERAL) Abdominal Surgeries: Surgical HX of: Abdominal Surgery, Appendectomy, Cholecystectomy, Hernia Repair Reproductive Surgeries: Surgical HX of;: Hysterectomy - Family History Family History: Reports;: Family Heart Disease - Social History Smoking Status: Former smoker Exam Vital Signs: Vital Signs Temperature 97.3 F L 12/26/16 15:13 Pulse Rate 62 12/26/16 15:13 Respiratory Rate 16 12/26/16 15:13 Blood Pressure 111/64 12/26/16 15:13 O2 Sat by Pulse Oximetry 98 12/26/16 15:00 - General General appearance: alert, in no apparent distress - Head Head exam: Present: atraumatic, normocephalic, normal inspection - Eye Eye exam: Present: normal appearance, PERRL, EOMI. Absent: nystagmus - ENT ENT exam: Present: normal exam, normal oropharynx, mucous membranes moist - Neck Neck exam: Present: normal inspection, full ROM, trachea midline. Absent: tenderness, meningismus, lymphadenopathy, thyromegaly - Chest Chest inspection: Present: normal inspection, symmetric chest wall rise. Absent : tenderness, rash, abscess - Respiratory Respiratory exam: Present: rales (Bibisailr Rales) - Cardiovascular Cardiovascular exam: Present: regular rate, normal rhythm, normal heart sounds. Absent: murmur, rubs, gallop, clicks - Abdominal Exam Abdominal exam: Present: soft, rebound, normal bowel sounds. Absent: distention , tenderness, guarding, rigidity - Extremities Exam Extremities exam: Present: normal capillary refill, pedal edema. Absent: calf tenderness - Back Exam Back exam: Present: normal inspection, full ROM. Absent: tenderness, muscle spasm, rashes - Neurological Exam Neurological exam: Present: alert, oriented X3, CN II-XII intact. Absent: motor sensory deficit - Psychiatric Psychiatric exam: Present: normal affect, normal mood. Absent: depressed, agitated, anxious, manic - Skin Skin exam: Present: warm, dry, intact, normal color. Absent: rash, cyanosis, diaphoresis, erythema, pallor, mottled Results - Labs CBC & BMP: 12/26/16 13:46 12/26/16 13:46 Lab Results: I have reviewed the patients labs Labs: Laboratory Tests 12/26/16 12/26/16 12/26/16 13:46 13:46 13:46 RBC 3.40 L Hgb 9.0 L Hct 29.0 L MCV 85.3 L MCHC 31.0 L Lymph % (Auto) 18.8 L Carbon Dioxide 33 H BUN 32 H Creatinine 1.80 H Glucose 152 H Troponin I B-Natriuretic Peptide 274 H Albumin 2.8 L Globulin 3.6 H Albumin/Globulin Ratio 0.7 L 12/26/16 13:46 RBC Hgb Hct MCV MCHC Lymph % (Auto) Carbon Dioxide BUN Creatinine Glucose Troponin I < 0.015 B-Natriuretic Peptide Albumin Globulin Albumin/Globulin Ratio - EKG EKG results: interpreted by NEDRA (sinus rhythm with sinus arrhythmia) - Diagnostic Findings Procedure: Ultrasound: report reviewed by me (Venous Doppler Study: No DVT) Disposition Clinical Impression: Bilateral cellulitis of lower leg, chest pain possible angina Case discussed with: patient Disposition: Still a Patient Condition: Guarded Additional Instructions: Admit to the hospitalist.
--- NOTE | 2016-12-26 16:17 | XRay Report ---
Exam: XR chest 1V portable Date: 12/26/2016 2:41 PM Indication: Chest pain Comparison: 11/06/2016 Technical: AP portable Findings: Cardiomegaly is present. Platelike atelectatic change present in the basal regions and/or patchy infiltrate in the right base. A ascites present. Lateral marginal osteophytes are present. Minimal sclerotic density along the right humeral head. Oxygen tubing superimposing exam. Impression: 1. Cardiomegaly without decompensation 2. Platelike change and are patchy infiltrate right base PROCEDURE INTERPRETED AT [facility] DEPARTMENT OF RADIOLOGY Final Report Signed by: Dr. Moshe Feliz
--- NOTE | 2016-12-26 16:40 | Hospitalist History & Physical ---
Assessment and Plan (1) Venous stasis dermatitis Status: Chronic Assessment and plan: Combination of post-phlebitic changes with lymphatic dysfunction. Erythema possible superimposed cellulitis (though warm is also bilateral). Chronic coumadin use for remote PTE and active venous disease. Current Visit: No Qualifiers: Laterality: bilateral Qualified Code(s): I83.11 - Varicose veins of right lower extremity with inflammation (2) COPD (chronic obstructive pulmonary disease) Status: Chronic Assessment and plan: Pulmonary fibrosis with chronic hypoxemia with variable CO2 retention. Current Visit: No Qualifiers: COPD type: COPD with acute exacerbation Qualified Code(s): J44.1 - Chronic obstructive pulmonary disease with (acute) exacerbation History of Present Illness History of present illness: Ms. Sosa is a 81 year old female halfway resident with childhood asthma recurrent as adult with remote tobacco use. Has had several respiratory admissions with what appears to be chronic hypoxemia with variable hypercapnea. This morning she noted shortness of breath at about 06:00. Appears she received NTG without substantial improvement and was referred to the ER where initial vital signs are unremarkable. The breathing problems have gradually resolved. She denies cough, sputum production. She was hospitalized here last in July for dyspnea. The patient has history of venous insufficiency with remote DVT/PTE with chronic lymphedema and stasis dermatitis. She states that yesterday there was and increase her leg pain with increased redness over the feet and lower leg. Though there is a note regarding chest pain she at this time describes more of a sensation of restricted breathing. Home Medications Medication Instructions Recorded Confirmed Type Albuterol Sulfate [Ventolin HFA] 2 puff INH Q4H PRN 11/27/15 11/15/16 History Omeprazole [Prilosec] 20 mg PO DAILY 11/27/15 11/15/16 History Polyvinyl Alcohol 1.4% Oph Saray 2 drop BOTH EYES Q6H PRN 11/27/15 11/15/16 History [Artificial Tears Oph Soln] Propylthiouracil 50 mg PO BID 11/27/15 11/15/16 History Albuterol/Ipratropium Neb [Duoneb] 3 ml RESP TX RT Q6H PRN 12/13/15 11/15/16 History Ondansetron Tab [Zofran Tab] 4 mg PO Q4HR PRN 12/13/15 11/15/16 History Magnesium Chloride [Slow Mag] 64 mg PO DAILY 12/14/15 11/15/16 History Aclidinium [place] [Tudorza 400 mcg INH BID 04/12/16 11/15/16 History Pressair] Benzonatate [Tessalon] 100 mg PO Q4HR PRN 04/12/16 11/15/16 History Ergocalciferol [Drisdol] 50,000 unit PO Q7D 04/12/16 11/15/16 History Fluticasone/Salmeterol 500-50 1 puff INH BID 04/12/16 11/15/16 History [Advair 500-50] Furosemide Tab [Lasix Tab] 20 mg PO BID DIURETIC 04/12/16 11/15/16 History Ibuprofen 200 mg PO Q4HR PRN 04/12/16 11/15/16 History Magnesium Hydroxide Susp [Milk of 30 ml PO Q12HR PRN 04/12/16 11/15/16 History Magnesia] Multivitamin [One Daily] 1 each PO DAILY 04/12/16 11/15/16 History Skin Healing Oint (Aquaphor) 1 applic TOP DAILY 04/12/16 11/15/16 History [Aquaphor] Spironolactone [Aldactone] 50 mg PO DAILY 04/12/16 11/15/16 History Warfarin [Coumadin] 2 mg PO DAILY@1800 04/24/16 11/15/16 History Aspirin Tab 325 mg PO DAILY tablet 04/29/16 11/15/16 Rx Atorvastatin [Lipitor] 20 mg PO BEDTIME tablet 04/29/16 11/15/16 Rx Metoprolol Tartrate Tab [Lopressor 12.5 mg PO BID tablet 04/29/16 11/15/16 Rx Tab] oxyCODONE/ACETAMINOPHEN 5-325 1 tablet PO Q8HR PRN #10 tablet 04/30/16 11/15/16 Rx [Percocet 5-325] traMADol TAB [Ultram] 50 mg PO Q6H PRN #10 04/30/16 11/15/16 Rx Doxycycline Monohydrate 100 mg PO BID #10 tablet 11/16/16 Rx Gentamicin 0.3% Oph Soln 2 drop LEFT EYE Q4HR #1 ophthalmic 11/16/16 Rx [Garamycin 0.3% Oph Soln] solution Levofloxacin Tab [Levaquin Tab] 500 mg PO DAILY #2 tablet 11/16/16 Rx Allergies Allergy/AdvReac Type Severity Reaction Status Date / Time meperidine [From Demerol] Allergy ITCHING Verified 11/27/15 13:32 Penicillins Allergy RASH Verified 11/27/15 13:32 Sulfa (Sulfonamide Allergy RASH Verified 11/27/15 13:32 Antibiotics) tetanus toxoid, adsorbed Allergy ANAPHYLAXIS Verified 11/27/15 13:32 hydrocodone [From Lortab] AdvReac Nausea Verified 11/27/15 13:32 morphine AdvReac Hypotension Verified 11/27/15 13:32 pentazocine [From Talwin] AdvReac Hallucinati Verified 11/27/15 13:32 ng Medical,Surgical,& Family Hx - Medical History Cardio: History of: Hypertension HEENT: History of: Eye Problem (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) Endocrine: History of: Thyroid Disorder (nodular goiter) Rheumatology: History of;: Rheumatoid Arthritis Respiratory: History of: COPD, Obstructive Sleep Apnea, Pulmonary Embolism (1969S), Respiratory Problems (childhood asthma) Gastrointestinal: History of: GERD, Hemorrhoids (MILD), Liver Problems (remote jaundice following transfusion) Musculoskeletal: History of: Back/Neck Problems, Osteoporosis, Musculoskeletal Problems (severe edema.) Reproductive: History of: Reproductive Cancer (remote ovarian cancer) Other: History of: Anesthesia Reactions (N/V), Cancer (lower extremity melanoma) - Surgical History Thoracic Surgeries: Surgical HX of;: Lobectomy Neurologic Surgeries: Surgical HX of: Neurologic Surgery HEENT Surgeries: Surgical HX of: Eye Surgery (CATARACT BILATERAL) Abdominal Surgeries: Surgical HX of: Abdominal Surgery, Appendectomy, Cholecystectomy, Hernia Repair Reproductive Surgeries: Surgical HX of;: Hysterectomy, Tubal Ligation - Family History Family History: Reports;: Family Heart Disease - Social History Smoking Status: Former smoker (none for 15 years) - Constitutional Constitutional: Absent: chills, fever(s), night sweats - Cardiovascular Cardiovascular: Absent: diaphoresis, orthopnea, palpitations - Respiratory Respiratory: Present: dyspnea. Absent: cough, hemoptysis, wheezing - Gastrointestinal Gastrointestinal: Absent: dysphagia, heartburn, hematemesis, hematochezia, melena, odynophagia - Musculoskeletal Musculoskeletal: Present: other (small sacral decubitus with July admission ) Exam - Constitutional Vitals: Period Temp Pulse Resp BP Sys/Tracey Pulse Ox Last 24 Hr 97.3 F-97.3 F 62-78 16-24 94-111/51-64 93-98 General appearance: no acute distress, over weight - Eye Eye exam: Present: other (left eye) - Neck Neck exam: Present: lymphadenopathy, thyromegaly (irregular margins without dominate nodule) - Respiratory Respiratory exam: Present: rales (fibrotic bilaterally). Absent: rhonchi, wheezes - Cardiovascular Cardiovascular exam: Present: regular rate and rhythm - GI/Abdominal GI/Abdominal exam: Present: normal bowel sounds. Absent: distended, mass, organomegaly, tenderness - Extremities Exam Extremities exam: Present: other (Chronic changes of venous and lymphatic disease with erythema and calor) - Neurological Exam Neurological exam: Present: alert, oriented X3 - Psychiatric Psychiatric exam: Present: normal affect, normal mood Results - Labs CBC & BMP: 12/26/16 13:46 12/26/16 13:46 Labs: INR 1.9 Albumen 2.8 - Impressions Sinus with sinus arrhythmia without group beating. Indeterminate axis with minor ST changes (similar tracing July 2016) - Diagnostic Findings Procedure: Chest x-ray: image reviewed by me (Low lung volumes with prominent pulmonary trunks and diffuse reticular changes)
[2016-12-26] MEDS ORDERED: traZODone 50 MG TABLET PO PRN (16:53)
[2016-12-26] MEDS ORDERED: DEXTROSE 50% 25 GM/50 ML VIAL IV PRN (16:53)
[2016-12-26] MEDS ORDERED: GLUCAGON 1 MG VIAL IM PRN (16:53)
[2016-12-26] MEDS ORDERED: BISACODYL 5 MG TABLET PO PRN (16:53)
[2016-12-26] MEDS ORDERED: ONDANSETRON 4 MG TABLET PO PRN (16:56)
[2016-12-26] MEDS ORDERED: POLYVINYL ALCOHOL 1.4% OPH SOLN 15 ML BOTTLE BOTH EYES PRN (16:56)
[2016-12-26] MEDS ORDERED: oxyCODONE/ACETAMINOPHEN 5-325 MG TABLET PO PRN (16:56)
[2016-12-26 17:30] LABS: Free T4 (Free Thyroxine) 1.01 NG/DL (0.76-1.46); Thyroid Stimulating Hormone 5.91 uIU/ml (0.358-3.74)
[2016-12-26 17:35] LABS: ABG Base Excess 10.4 MMOL/L (-2.5-2.5); ABG HCO3 35.7 MMOL/L (20-26); ABG Oxygen Saturation 96.2 % (95-100); ABG PCO2 51.8 MM HG (35-48); ABG PH 7.456 (7.35-7.45); ABG PO2 86.6 MM HG (80-95); ABG TCO2 37.3 MMOL/L (23-27)
[2016-12-26] MEDS ORDERED: WARFARIN 2 MG TABLET PO SCH (20:30)
[2016-12-26] MEDS: ALBUTEROL/IPRATROPIUM 3 ML NEB RESP TX SCH ×2 (21:06→22:30)
[2016-12-26] MEDS: HYDROCORTISONE 1% CREAM 28 GM TUBE TOP SCH (22:19)
[2016-12-26] MEDS: predniSONE 20 MG TABLET PO SCH (22:20)
[2016-12-26] MEDS: ATORVASTATIN 20 MG TABLET PO SCH (22:20)
[2016-12-26] MEDS: METOPROLOL TARTRATE 25 MG TABLET PO SCH (22:20)
[2016-12-26] MEDS: CEFTAROLINE 300 MG in SODIUM CHLORIDE 0.9% 100 ML IV SCH (22:21)
[2016-12-26] MEDS: GENTAMICIN 0.3% OPH SOLN 5 ML BOTTLE LEFT EYE SCH (22:22)
[2016-12-26] MEDS: INSULIN REGULAR 100 UNIT/ML SUBCUT SCH (22:29)
[2016-12-27] MEDS: ALBUTEROL/IPRATROPIUM 3 ML NEB RESP TX SCH ×5 (02:51→20:34)
[2016-12-27] MEDS: GENTAMICIN 0.3% OPH SOLN 5 ML BOTTLE LEFT EYE SCH ×6 (05:10→23:18)
[2016-12-27 08:32] LABS: INR 1.8; PT Patient Result 19.4 SECS
[2016-12-27] MEDS ORDERED: SPIRONOLACTONE 50 MG TABLET PO SCH (09:00)
--- NOTE | 2016-12-27 09:08 | EKG Report ---
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
[2016-12-27] MEDS ORDERED: NITROGLYCERIN SL 0.4 MG TABLET SL PRN (09:20)
[2016-12-27] MEDS: PANTOPRAZOLE 40 MG TABLET PO SCH (09:28)
[2016-12-27] MEDS: predniSONE 20 MG TABLET PO SCH ×2 (09:29→21:14)
[2016-12-27] MEDS: traMADol 50 MG TABLET PO PRN ×2 (09:29→16:57)
[2016-12-27] MEDS: METOPROLOL TARTRATE 25 MG TABLET PO SCH (09:30)
[2016-12-27] MEDS: INSULIN REGULAR 100 UNIT/ML SUBCUT SCH ×4 (09:33→21:14)
[2016-12-27] MEDS: MULTIVITAMIN (CENTRUM) TABLET PO SCH (09:34)
[2016-12-27] MEDS: CEFTAROLINE 300 MG in SODIUM CHLORIDE 0.9% 100 ML IV SCH ×2 (09:37→23:16)
[2016-12-27] MEDS: HYDROCORTISONE 1% CREAM 28 GM TUBE TOP SCH ×2 (09:43→21:14)
--- NOTE | 2016-12-27 09:58 | EKG Report ---
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
--- NOTE | 2016-12-27 10:11 | Hospitalist Progress Note ---
Assessment and Plan (1) Venous stasis dermatitis Status: Chronic Assessment and plan: continue teflaro for cellulitis Current Visit: No Qualifiers: Laterality: bilateral Qualified Code(s): I83.11 - Varicose veins of right lower extremity with inflammation (2) Chronic renal insufficiency, stage II (mild) Status: Chronic Current Visit: No (3) History of DVT (deep vein thrombosis) Status: Chronic Current Visit: No (4) Chest pain Status: Acute Assessment and plan: cardiology consult Current Visit: No (5) Chronic anticoagulation Status: Acute Current Visit: No Hospitalist: Subjective Interval history: 81-year-old female admitted to the emergency department yesterday with bilateral lower extremity venous stasis and cellulitis. Currently receiving teflaro. Also complains of some chest pain and shortness of breath. Cardiology consult pending. No acute events overnight. Exam - Constitutional Vitals: Period Temp Pulse Resp BP Sys/Tracey Pulse Ox Last 24 Hr 97.3 F-98.2 F 63-97 14-20 91-120/44-87 92-100 General appearance: morbidly obese - Respiratory Respiratory exam: Present: clear to auscultation bilaterally - Cardiovascular Cardiovascular exam: Present: regular rate and rhythm - GI/Abdominal GI/Abdominal exam: Present: normal bowel sounds, soft. Absent: tenderness, rebound - Extremities Exam Extremities exam: Present: edema, other (redness and swelling noted) - Neurological Exam Neurological exam: Present: alert, oriented X3 - Skin Skin exam: Present: erythema Results - Labs CBC & BMP: 12/26/16 13:46 12/26/16 13:46 Lab Results: I have reviewed the past 24 hour labs Quality Measures - VTE Contraindication to Pharmacological VTE Prophylaxis: Coagulopathy Contraindication to Mechanical VTE Prophylaxis: Local Inflammation
[2016-12-27 10:32] LABS: Troponin I Only < 0.015 NG/ML (0.00-0.045)
[2016-12-27] MEDS: SKIN HEALING OINT (AQUAPHOR) 50 GM TUBE TOP SCH (13:00)
--- NOTE | 2016-12-27 17:18 | ECHO Report ---
Mone Sosa Exam Date: 12/27/2016 11:38 Referring Physician: Technologist: Jody Mazariegos RDCS Age: 81 Ht (in): Wt (lb): Gender: F Exam Location: [facility] Echo Indications: Shortness of breath, COPD, Essential (primary) hypertension, LEON, Edema, unspecified, Venous stasis dermatitis, Chronic renal insufficiency - Stage II, Chest pain, unspecified, Chronic anticoagulation BP: / HR: Rhythm: Sinus Technical Quality: IMPRESSIONS Normal left ventricle size, without hypertrophy, with hyperdynamic systolic function. Estimated left ventricle ejection fraction 65%. Grade 1 diastolic dysfunction. Mild left atrial enlargement. Moderate pulmonary hypertension. Mild pulmonic valve insufficiency. MEASUREMENTS (Male / Female) Normal Values 2D ECHO LV Diastolic Diameter PLAX 4.1 cm 4.2 - 5.9 / 3.9 - 5.3 cm LV Systolic Diameter PLAX 2.3 cm LV Fractional Shortening PLAX 45.3 % IVS Diastolic Thickness 1.0 cm 0.6 - 1.0 / 0.6 - 0.9 cm LVPW Diastolic Thickness 1.0 cm 0.6 - 1.0 / 0.6 - 0.9 cm RV Internal Dim ED PLAX 2.3 cm Aortic Root Diameter 3.2 cm LA Systolic Diameter LX 5.0 cm 3.0 - 4.0 / 2.7 - 3.8 cm DOPPLER TR Peak Velocity 338.0 cm/s TR Peak Gradient 45.7 mmHg FINDINGS Left Ventricle Normal left ventricle size, without hypertrophy, with hyperdynamic systolic function. Estimated left ventricle ejection fraction 65%. Grade 1 diastolic dysfunction. Right Ventricle The right ventricle is normal in size and function. Right Atrium The right atrium is normal in size. Left Atrium The left atrium is mildly enlarged. Mitral Valve Morphologically normal mitral valve. Trace mitral valve regurgitation. Aortic Valve Mild aortic valve sclerosis, without stenosis or regurgitation. Tricuspid Valve Morphologically normal tricuspid valve. Mild tricuspid valve regurgitation. Tricuspid regurgitation velocities suggest a PAP of 56 mmHg. Pulmonic Valve Morphologically normal pulmonic valve. Mild pulmonary valve regurgitation. Pericardium Normal pericardium without effusion. Aorta Normal ascending aorta dimension. William Campbell (Electronically Signed) Final Date: 27 December 2016 17:17
--- NOTE | 2016-12-27 17:35 | Cardiology Consult Note ---
Clayton Martiens Rachel, RN, am scribing for, and in the presence of, William Campbell MD 17:28. Assessment and Plan (1) Chest pain Status: Acute Assessment and plan: 81-year-old female patient presenting with the megalies, cellulitis, intermittent chest pain. H/o CKD, COPD, hyperlipidemia, hypertension, GERD, and former smoker. T2Dm, controlled hyperthyroidism. Echo confirmed hyperdynamic LV function, moderate pulmonary hypertension. -CP. Normal cardiac biomarkers, no ischemic EKG changes, had prior stress test, negative for ischemia. likely non-cardiac in etiology. -Mod PHTN. This is due to diastolic dysfunction and underlying severe pulmonary disease. Echo from 2009 also showed mild pulmonary hypertension. Increase metoprolol to 50 mg twice a day, aim for a resting heart rate around 60 bpm. Blood pressure well controlled. Resume Lasix 20 mg twice a day. If BP allows, can add CCB. -Start ASA 81 mg qd. Hypertension, type 2 diabetes mellitus. -H/o DVT. She is high risk for thromboembolic complications. Resume Coumadin, target INR 2-3. -Anemia. This seems to be around her baseline. No workup in our system. Check an anemia studies, occult blood. Current Visit: Yes (2) Bilateral cellulitis of lower leg Status: Acute Current Visit: Yes (3) Anticoagulated on Coumadin Status: Chronic Current Visit: Yes (4) Renal insufficiency Status: Chronic Current Visit: Yes (5) COPD (chronic obstructive pulmonary disease) Status: Chronic Current Visit: No (6) Congestive heart failure Status: Chronic Current Visit: No (7) Anemia in chronic kidney disease Status: Chronic Current Visit: Yes (8) History of DVT (deep vein thrombosis) Status: Chronic Current Visit: No History of Present Illness - Data of Consult Patient: known to practice within the last 3 years Consult date: 12/27/16 Requesting Physician: Smooth [place] Primary care physician: Marcellus Gomez - Consult Narrative Reason for consult: Chest pain History of present illness: Ms. Sosa is a 81 year old female [facility] resident without known coronary artery disease. She has seen Dr. Munoz in the remote past as an outpatient. She has not followed up with him since November 2015. She presented to the ER yesterday for further evaluation of bilateral lower extremity cellulitis and chest pain. She has risk factors significant for advanced age, hyperlipidemia, hypertension, sedentary lifestyle and former smoker (quit in 2001). She has a past medical history of GERD, renal insufficiency, COPD, congestive heart failure, arthritis and DVT (patient takes Coumadin, INR 1.8 today). She denies any significant family history of cardiac disease. She has had no significant cardiac surgical history. She last saw Dr. Munoz in November 2015 and underwent a cardiolyte stress test. This revealed no evidence of ischemia and normal left ventricular systolic function. She also had an echo at that time which revealed normal left ventricular size and systolic function. Ejection fraction was estimated to be greater than 65% with mild diastolic dysfunction. Trace MR and TR was also noted. She has never had a left heart catheterization. Patient was in her usual state of health until yesterday when she began to experience mild nonradiating midsternal chest pain while doing arm exercises. She is unable to describe this pain to me she tells me that "it just hurts." This is also associated with shortness of breath, nausea and diaphoresis. She tells me that she always has chest pain after she eats. She confirms that she just had a large meal prior to doing her arm exercises. She reports that this pain was constant. She tells me that she was given 2 nitroglycerin at the [facility] and this made her pain slightly better. She was then transferred to the ER. Patient was admitted under hospitalist's service and cardiology was consulted at this morning for assistance with patient's chest pain. Of noted, patient has chronic dyspnea due to COPD. She reports that this has not worsened. Patient was seen and examined on telemetry. She is extremely drowsy. It is uncertain whether or not the patient has history of dementia and if the review of systems is accurate. She is currently lying in bed resting in no acute distress requiring oxygen at 2 L. She continues to complain of mild chest pain. This chest pain is reproducible with palpation and patient reports that this is the same pain that she experienced. Her abdomen is extremely tender to palpation. She is currently in sinus rhythm with heart rates in the 90s without any overt arrhythmias or ectopy noted. Her troponin has been negative 3 checks. Her BNP is noted to be 274. Her EKG does not reveal any acute findings and is unchanged from previous EKG. Venous ultrasound of lower extremities was negative for DVT. Bilateral lower extremity cellulitis is noted , this is being treated per hospitalist. Creatinine is noted to be 1.8, this seems to be patient's baseline. H&H is 29 & 9. TSH is 5.9 with normal free T4. INR today is 1.8. CC: Rom Estrada MD - Home Medications and Allergies Home Medications: Home Medications Medication Instructions Recorded Confirmed Type Albuterol Sulfate [Ventolin HFA] 2 puff INH Q4H PRN 11/27/15 12/27/16 History Omeprazole [Prilosec] 20 mg PO DAILY 11/27/15 12/27/16 History Polyvinyl Alcohol 1.4% Oph Saray 2 drop BOTH EYES Q6H PRN 11/27/15 12/27/16 History [Artificial Tears Oph Soln] Propylthiouracil 50 mg PO BID 11/27/15 12/27/16 History Ondansetron Tab [Zofran Tab] 4 mg PO Q4HR PRN 12/13/15 12/27/16 History Magnesium Chloride [Slow Mag] 64 mg PO DAILY 12/14/15 12/27/16 History Benzonatate [Tessalon] 100 mg PO Q4HR PRN 04/12/16 12/27/16 History Fluticasone/Salmeterol 500-50 1 puff INH BID 04/12/16 12/27/16 History [Advair 500-50] Furosemide Tab [Lasix Tab] 20 mg PO BID DIURETIC 04/12/16 12/27/16 History Magnesium Hydroxide Susp [Milk of 30 ml PO Q12HR PRN 04/12/16 12/27/16 History Magnesia] Multivitamin [One Daily] 1 each PO DAILY 04/12/16 12/27/16 History Spironolactone [Aldactone] 50 mg PO DAILY 04/12/16 12/27/16 History Warfarin [Coumadin] 2 mg PO DIRECTED 04/24/16 12/27/16 History Aspirin Tab 325 mg PO DAILY tablet 04/29/16 12/27/16 Rx Atorvastatin [Lipitor] 20 mg PO BEDTIME tablet 04/29/16 12/27/16 Rx Metoprolol Tartrate Tab [Lopressor 12.5 mg PO BID tablet 04/29/16 12/27/16 Rx Tab] traMADol TAB [Ultram] 50 mg PO Q6H PRN #10 04/30/16 12/27/16 Rx Gentamicin 0.3% Oph Soln 2 drop LEFT EYE Q4HR #1 ophthalmic 11/16/16 12/27/16 Rx [Garamycin 0.3% Oph Soln] solution Oxycodone HCl/Acetaminophen 1 tablet PO Q6HR PRN 12/27/16 12/27/16 History [Oxycodone-Acetaminophen 5-325] Allergies/Adverse Reactions: Allergies Allergy/AdvReac Type Severity Reaction Status Date / Time meperidine [From Demerol] Allergy ITCHING Verified 11/27/15 13:32 Penicillins Allergy RASH Verified 11/27/15 13:32 Sulfa (Sulfonamide Allergy RASH Verified 11/27/15 13:32 Antibiotics) tetanus toxoid, adsorbed Allergy ANAPHYLAXIS Verified 11/27/15 13:32 hydrocodone [From Lortab] AdvReac Nausea Verified 11/27/15 13:32 morphine AdvReac Hypotension Verified 11/27/15 13:32 pentazocine [From Talwin] AdvReac Hallucinati Verified 11/27/15 13:32 ng 12 point system: reviewed and no additional remarkable complaints except as stated - Constitutional Constitutional: Absent: chills, fatigue, fever(s), headache(s), night sweats, weight gain - Cardiovascular Cardiovascular: Present: as per HPI, diaphoresis, dyspnea, edema. Absent: claudication, radiating jaw, neck or arm pain, lightheadedness, orthopnea, palpitations, PND - Respiratory Respiratory: Present: as per HPI. Absent: cough, wheezing, pain on inspiration , change in phlegm color - Gastrointestinal Gastrointestinal: Present: abdominal pain, heartburn, nausea. 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) Endocrine: History of: Thyroid Disorder (nodular goiter) Rheumatology: History of;: Rheumatoid Arthritis Respiratory: History of: Bronchitis, COPD, Obstructive Sleep Apnea, Pulmonary Embolism (), Pneumonia, Respiratory Problems (childhood asthma) Renal: History of: Renal Problems (left nephrectomy) Gastrointestinal: History of: GERD, GI Problems (hernia) Musculoskeletal: History of: Back/Neck Problems, Osteoporosis Hematology: History of: Anemia Reproductive: History of: Reproductive Cancer (remote ovarian cancer) Other: History of: Cancer (lower extremity melanoma) - Surgical History Thoracic Surgeries: Surgical HX of;: Lobectomy Patient denies;: Organ Transplant Neurologic Surgeries: Patient denies: Neurologic Surgery HEENT Surgeries: Surgical HX of: Eye Surgery (CATARACT BILATERAL) Abdominal Surgeries: Surgical HX of: Abdominal Surgery, Appendectomy, Cholecystectomy, Hernia Repair Reproductive Surgeries: Surgical HX of;: Hysterectomy, Tubal Ligation - Social History Smoking Status: Former smoker Frequency of Alcohol Use: None Type of Drug Use: None Physical Examination Vital Signs Temp Pulse Resp BP Pulse Ox 97.3 F L 78 24 95/63 93 L 12/26/16 14:07 12/26/16 14:07 12/26/16 14:07 12/26/16 14:07 12/26/16 14:07 General: Present: Appears Well, No Apparent Distress Neck: Present: Supple Neck, Midline Trachea, No Masses, No Bruit, No Lymphadenopathy Cardiac: Present: Reg Rate and Rhythm, Regular Rate, Regular Rhythm, S1/S2, No Murmur. Absent: Gallop, Tachycardia, Bradycardia Lungs: Present: Normal Exam, Clear Ascult./Percussion, Normal Breath Sounds, Oxygen, No Wheeze, Rales, Rhonchi Abdomen: Present: Soft, Active Bowel Sounds, Tender Skin: Present: Other (Cellulitis to bilateral lower extremities) Extremities: Present: No Clubbing, No Cyanosis, Edema (3+ bilateral lower extremity edema) Result/EKG - Labs CBC & BMP: 12/26/16 13:46 12/26/16 13:46 Lab Results: I have reviewed the past 24 hour labs Labs: Laboratory Results - last 24 hr 12/26/16 12/26/16 12/26/16 17:30 19:31 21:29 INR PT Patient/Control Mix ABG pH 7.456 H ABG pCO2 51.8 H ABG pO2 86.6 ABG HCO3 35.7 H ABG Total CO2 37.3 H ABG O2 Saturation 96.2 ABG Base Excess 10.4 H POC Glucose 202 H Total Creatine Kinase CK-MB (CK-2) Troponin I < 0.015 12/26/16 12/27/16 12/27/16 22:42 08:05 08:11 INR 1.8 PT Patient/Control Mix 19.4 ABG pH ABG pCO2 ABG pO2 ABG HCO3 ABG Total CO2 ABG O2 Saturation ABG Base Excess POC Glucose 258 H Total Creatine Kinase CK-MB (CK-2) Troponin I < 0.015 12/27/16 09:43 INR PT Patient/Control Mix ABG pH ABG pCO2 ABG pO2 ABG HCO3 ABG Total CO2 ABG O2 Saturation ABG Base Excess POC Glucose Total Creatine Kinase 23 L CK-MB (CK-2) < 1.0 Troponin I < 0.015 - EKG EKG results: interpreted by me, sinus rhythm Quality Measures - VTE Contraindication to Pharmacological VTE Prophylaxis: Coagulopathy Contraindication to Mechanical VTE Prophylaxis: Local Inflammation Adrian Martines Attila, MD, personally performed the services described in this documentation, ascribed by Ashley Arnold RN in my presence, and it is both accurate and complete [id number] .
[2016-12-27 17:41] LABS: Troponin I Only < 0.015 NG/ML (0.00-0.045)
[2016-12-27] MEDS ORDERED: WARFARIN 2 MG TABLET PO SCH (18:00)
[2016-12-27] MEDS: METOPROLOL TARTRATE 50 MG TABLET PO SCH (18:01)
[2016-12-27] MEDS: ATORVASTATIN 20 MG TABLET PO SCH (21:14)
[2016-12-27 23:20] LABS: Troponin I Only < 0.015 NG/ML (0.00-0.045)
[2016-12-28] MEDS: GENTAMICIN 0.3% OPH SOLN 5 ML BOTTLE LEFT EYE SCH ×6 (02:10→21:48)
[2016-12-28] MEDS: ALBUTEROL/IPRATROPIUM 3 ML NEB RESP TX SCH ×7 (03:41→23:46)
[2016-12-28 06:57] LABS: Basophils % 0.2 % (0.0-0.8); Hematocrit 26.7 VOL% (35.7-47.0); Hemoglobin 7.9 GM/DL (12.0-16.0); Immature Granulocytes % 0.3 %; Immature Granulocytes Absolute 0.04 #; Lymphocytes % 8.4 % (21.3-54.2); Mean Corpuscular HGB Conc 29.6 GM/DL (32-36); Mean Corpuscular Hemoglobin 27 PG (27-34); Mean Corpuscular Volume 90.5 FL (87-102); Mean Platelet Volume 10.9 FL (9.6-12.0); Monocytes # 0.4 10*3/uL (0.11-0.8); Monocytes % 3.3 % (1.7-12.7); Neutrophils # 10.1 10*3/uL (1.4-7.4); Neutrophils % 87.8 % (38.7-73.9); Platelet Count 202 T/CUMM (130-400); Red Blood Count 2.95 MC/CUMM (3.8-5.5); Red Cell Distribution Width 16.8 % (9.3-17.3); White Blood Count 11.5 T/CUMM (4-12)
[2016-12-28 07:31] LABS: % Iron Saturation 4.5 % (18-50); Ferritin 13.1 ng/ml (8-252); Folate 14.4 NG/ML (5.4-24.0)
[2016-12-28] MEDS: PANTOPRAZOLE 40 MG TABLET PO SCH (08:38)
[2016-12-28] MEDS: MULTIVITAMIN (CENTRUM) TABLET PO SCH (08:38)
[2016-12-28] MEDS: predniSONE 20 MG TABLET PO SCH ×2 (08:38→20:39)
[2016-12-28] MEDS: SPIRONOLACTONE 50 MG TABLET PO SCH (08:39)
[2016-12-28] MEDS: traMADol 50 MG TABLET PO PRN (08:39)
[2016-12-28] MEDS: FUROSEMIDE 20 MG TABLET PO SCH ×2 (08:39→15:54)
[2016-12-28] MEDS: METOPROLOL TARTRATE 50 MG TABLET PO SCH ×2 (08:39→20:39)
[2016-12-28] MEDS: INSULIN REGULAR 100 UNIT/ML SUBCUT SCH ×4 (08:40→20:40)
[2016-12-28] MEDS: SKIN HEALING OINT (AQUAPHOR) 50 GM TUBE TOP SCH (08:42)
[2016-12-28] MEDS: HYDROCORTISONE 1% CREAM 28 GM TUBE TOP SCH ×2 (08:42→20:39)
[2016-12-28] MEDS ORDERED: ASPIRIN EC 81 MG TABLET PO SCH (09:00)
[2016-12-28] MEDS: CEFTAROLINE 300 MG in SODIUM CHLORIDE 0.9% 100 ML IV SCH ×2 (09:10→20:38)
[2016-12-28 10:06] LABS: Band Neutrophils 1 % (0-10); Hypochromasia 1+; Lymphocytes 8 % (20-55); Microcytosis 1+; Ovalocytes Few; Segmented Neutrophils 85 % (50-85); Total Cells Counted 100
[2016-12-28 10:07] LABS: Platelet Estimate Adequate
--- NOTE | 2016-12-28 14:46 | Cardiology Progress Note ---
Assessment and Plan (1) Chest pain Status: Acute Assessment and plan: 81-year-old female patient presenting with the megalies, cellulitis, intermittent chest pain. H/o CKD, COPD, hyperlipidemia, hypertension, GERD, and former smoker. T2Dm, controlled hyperthyroidism. Echo confirmed hyperdynamic LV function, moderate pulmonary hypertension. -CP. Normal cardiac biomarkers, no ischemic EKG changes, had prior stress test, negative for ischemia. likely non-cardiac in etiology. -Mod PHTN. This is due to diastolic dysfunction and underlying severe pulmonary disease. Echo from 2009 also showed mild pulmonary hypertension. Increase metoprolol to 50 mg twice a day, aim for a resting heart rate around 60 bpm. Blood pressure well controlled. Cont Lasix 20 mg twice a day. If BP allows, can add CCB. -Anemia. Iron deficiency. I will defer workup and further management to the hospitalist, may need GI eval. Also has CKD. -Unless her bleeding risk is prohibitive, she will need to be on lifelong Coumadin treatment, due to history of DVT, pulmonary hypertension. Also, on aspirin for hypertension and type 2 diabetes mellitus. For now, hold these, until etiology of the anemia is established. Current Visit: Yes (2) Bilateral cellulitis of lower leg Status: Acute Current Visit: Yes (3) Anticoagulated on Coumadin Status: Chronic Current Visit: Yes (4) Renal insufficiency Status: Chronic Current Visit: Yes (5) COPD (chronic obstructive pulmonary disease) Status: Chronic Current Visit: No (6) Congestive heart failure Status: Chronic Current Visit: No (7) Anemia in chronic kidney disease Status: Chronic Current Visit: Yes (8) History of DVT (deep vein thrombosis) Status: Chronic Current Visit: No Cardiology - PN: Subj Interval history: Crit is slightly lower. No melena. She is feeling around the same. Exam (Progress Note) - Constitutional Vitals: Period Temp Pulse Resp BP Sys/Tracey Pulse Ox Last 24 Hr 96.4 F-98.6 F 58-102 16-20 105-121/43-70 92-99 General appearance: over weight - Head Head exam: Present: normal inspection - Eye Eye exam: Absent: conjunctival injection Pupils: Absent: dilated - ENT ENT exam: Present: normal external ear exam - Neck Neck exam: Present: normal inspection - Respiratory Respiratory exam: Present: clear to auscultation bilaterally - Cardiovascular Cardiovascular exam: Present: regular rate and rhythm, systolic murmur - GI/Abdominal GI/Abdominal exam: Present: normal bowel sounds - Extremities Exam Extremities exam: Present: normal inspection, normal capillary refill, edema (1+ ) - Neurological Exam Neurological exam: Present: alert, oriented X3 - Psychiatric Psychiatric exam: Present: normal affect, normal mood - Skin Skin exam: Present: warm, pallor. Absent: cyanosis Result/EKG - Labs CBC & BMP: 12/28/16 06:22 12/26/16 13:46 Lab Results: I have reviewed the past 24 hour labs Labs: Laboratory Results - last 24 hr 12/27/16 12/27/16 12/27/16 15:42 16:34 19:24 WBC RBC Hgb Hct MCV MCH MCHC RDW Plt Count MPV Neut % (Auto) Lymph % (Auto) Karnes % (Auto) Eos % (Auto) Baso % (Auto) Neut # (Auto) Lymph # (Auto) Karnes # (Auto) Eos # (Auto) Baso # (Auto) Total Counted Immature Gran % Nucleated RBC % Immature Gran # Segmented Neutrophils Band Neutrophils Lymphocytes Monocytes Nucleated RBCs # Platelet Estimate Hypochromasia Microcytosis Ovalocytes Absolute Retic Percent Retic Retic Hgb Equivalent POC Glucose 285 H 295 H Iron TIBC % Saturation Ferritin Total Creatine Kinase 23 L CK-MB (CK-2) < 1.0 Troponin I < 0.015 Vitamin B12 Folate 12/27/16 12/28/16 12/28/16 22:32 06:22 06:22 WBC 11.5 D RBC 2.95 L Hgb 7.9 L Hct 26.7 L MCV 90.5 MCH 27 MCHC 29.6 L RDW 16.8 Plt Count 202 MPV 10.9 Neut % (Auto) 87.8 H Lymph % (Auto) 8.4 L Karnes % (Auto) 3.3 Eos % (Auto) 0.0 Baso % (Auto) 0.2 Neut # (Auto) 10.1 H Lymph # (Auto) 1.0 L Karnes # (Auto) 0.4 Eos # (Auto) 0.0 Baso # (Auto) 0.0 Total Counted 100 Immature Gran % 0.3 Nucleated RBC % 0.0 Immature Gran # 0.04 Segmented Neutrophils 85 Band Neutrophils 1 Lymphocytes 8 L Monocytes 6 Nucleated RBCs # 0.00 Platelet Estimate Adequate Hypochromasia 1+ Microcytosis 1+ Ovalocytes Few Absolute Retic 0.1 Percent Retic 2.1 H Retic Hgb Equivalent 23.9 L POC Glucose Iron 13 L TIBC 287 % Saturation 4.5 L Ferritin 13.1 Total Creatine Kinase 20 L CK-MB (CK-2) < 1.0 Troponin I < 0.015 Vitamin B12 Folate 12/28/16 12/28/16 12/28/16 06:22 07:06 12:11 WBC RBC Hgb Hct MCV MCH MCHC RDW Plt Count MPV Neut % (Auto) Lymph % (Auto) Karnes % (Auto) Eos % (Auto) Baso % (Auto) Neut # (Auto) Lymph # (Auto) Karnes # (Auto) Eos # (Auto) Baso # (Auto) Total Counted Immature Gran % Nucleated RBC % Immature Gran # Segmented Neutrophils Band Neutrophils Lymphocytes Monocytes Nucleated RBCs # Platelet Estimate Hypochromasia Microcytosis Ovalocytes Absolute Retic Percent Retic Retic Hgb Equivalent POC Glucose 189 H 352 H Iron TIBC % Saturation Ferritin Total Creatine Kinase CK-MB (CK-2) Troponin I Vitamin B12 343 Folate 14.4 - EKG EKG results: interpreted by me Quality Measures - VTE Contraindication to Pharmacological VTE Prophylaxis: Coagulopathy Contraindication to Mechanical VTE Prophylaxis: Local Inflammation
--- NOTE | 2016-12-28 18:38 | Hospitalist Progress Note ---
Assessment and Plan (1) Bilateral cellulitis of lower leg Status: Acute Assessment and plan: due to stasis dermatitis. continue with IV antibiotics follow BC, WC wound care consult doppler uss of both legs Current Visit: Yes (2) Venous stasis dermatitis Status: Chronic Assessment and plan: wounnd care consult Current Visit: No Qualifiers: Laterality: bilateral Qualified Code(s): I83.11 - Varicose veins of right lower extremity with inflammation (3) COPD (chronic obstructive pulmonary disease) Status: Acute Assessment and plan: appears stable on oxygen, steroids, nebs treatment Current Visit: Yes (4) HTN (hypertension) Status: Acute Assessment and plan: stable Current Visit: Yes (5) Dyslipidemia Status: Acute Assessment and plan: on statins Current Visit: Yes (6) Chest pain Status: Acute Assessment and plan: Cardiology is following, patient is on chronic anticogualtion due to remote PE/ DVT Current Visit: Yes Hospitalist: Subjective Interval history: patient seen. She states a history of some minimal chest discomfort. Exam - Constitutional Vitals: Period Temp Pulse Resp BP Sys/Tracey Pulse Ox Last 24 Hr 96.4 F-98.6 F 58-102 12-20 105-129/43-70 92-99 General appearance: no acute distress - Respiratory Respiratory exam: Present: clear to auscultation bilaterally - Cardiovascular Cardiovascular exam: Present: regular rate and rhythm - GI/Abdominal GI/Abdominal exam: Present: normal bowel sounds - Extremities Exam Extremities exam: Present: other (stasis dermatitis) Results - Labs CBC & BMP: 12/28/16 06:22 12/26/16 13:46 Lab Results: I have reviewed the past 24 hour labs Quality Measures - VTE Contraindication to Pharmacological VTE Prophylaxis: Coagulopathy Contraindication to Mechanical VTE Prophylaxis: Local Inflammation
[2016-12-28] MEDS ORDERED: TIGECYCLINE 50 MG in SODIUM CHLORIDE 0.9% 100 ML IV SCH (19:00)
[2016-12-28] MEDS: ATORVASTATIN 20 MG TABLET PO SCH (20:39)
--- NOTE | 2016-12-28 20:52 | Ultrasound Report ---
Referring physician: Rom Estrada MD Exam: Bilateral lower extremity venous ultrasound Date: December 28, 2016 Comparison: Lower extremity venous ultrasound December 26, 2016 Reason: Bilateral leg swelling, edema Technique: Duplex scan of the bilateral lower extremity veins was performed using B-Mode/grayscale imaging, compression, Doppler spectral analysis and color flow. Ultrasound images were captured and stored. Findings: There is no evidence of thrombus within the left or right common femoral veins, saphenous veins, superficial femoral veins or popliteal veins. Normal compression and augmentation are present throughout. Normal color flow and spectral analysis are observed. Impression: No evidence of deep venous thrombosis within either lower extremity. PROCEDURE INTERPRETED AT [facility] DEPARTMENT OF RADIOLOGY Final Report Signed by: Dr. Jimmy Roman
[2016-12-29] MEDS: GENTAMICIN 0.3% OPH SOLN 5 ML BOTTLE LEFT EYE SCH ×6 (02:51→21:45)
[2016-12-29] MEDS: ALBUTEROL/IPRATROPIUM 3 ML NEB RESP TX SCH ×5 (03:35→19:13)
[2016-12-29 06:47] LABS: Basophils % 0.1 % (0.0-0.8); Hematocrit 26.5 VOL% (35.7-47.0); Immature Granulocytes % 0.7 %; Immature Granulocytes Absolute 0.07 #; Lymphocytes % 9.4 % (21.3-54.2); Mean Corpuscular HGB Conc 30.2 GM/DL (32-36); Mean Corpuscular Hemoglobin 26 PG (27-34); Mean Corpuscular Volume 87.5 FL (87-102); Mean Platelet Volume 10.8 FL (9.6-12.0); Monocytes # 0.3 10*3/uL (0.11-0.8); Monocytes % 2.9 % (1.7-12.7); Neutrophils # 8.8 10*3/uL (1.4-7.4); Neutrophils % 86.9 % (38.7-73.9); Platelet Count 204 T/CUMM (130-400); Red Blood Count 3.03 MC/CUMM (3.8-5.5); Red Cell Distribution Width 16.7 % (9.3-17.3); White Blood Count 10.1 T/CUMM (4-12)
[2016-12-29 07:21] LABS: Calcium 9.1 MG/DL (8.5-10.1); Osmolality,Calculated 289.5 MOS/KG (273-304); Potassium 4.9 MMOL/L (3.5-5.1)
[2016-12-29] MEDS: INSULIN REGULAR 100 UNIT/ML SUBCUT SCH ×4 (08:37→22:38)
[2016-12-29] MEDS: predniSONE 20 MG TABLET PO SCH ×2 (08:38→21:45)
[2016-12-29] MEDS: SPIRONOLACTONE 50 MG TABLET PO SCH (08:38)
[2016-12-29] MEDS: FUROSEMIDE 20 MG TABLET PO SCH ×2 (08:39→16:27)
[2016-12-29] MEDS: PANTOPRAZOLE 40 MG TABLET PO SCH (08:39)
[2016-12-29] MEDS: traMADol 50 MG TABLET PO PRN (08:39)
[2016-12-29] MEDS: MULTIVITAMIN (CENTRUM) TABLET PO SCH (08:39)
[2016-12-29] MEDS: METOPROLOL TARTRATE 50 MG TABLET PO SCH ×2 (08:39→21:45)
[2016-12-29] MEDS: SKIN HEALING OINT (AQUAPHOR) 50 GM TUBE TOP SCH (08:40)
[2016-12-29] MEDS: HYDROCORTISONE 1% CREAM 28 GM TUBE TOP SCH ×2 (08:40→21:45)
[2016-12-29] MEDS: CEFTAROLINE 300 MG in SODIUM CHLORIDE 0.9% 100 ML IV SCH ×2 (08:50→21:47)
--- NOTE | 2016-12-29 13:40 | Hospitalist Progress Note ---
Assessment and Plan (1) Bilateral cellulitis of lower leg Status: Acute Assessment and plan: due to stasis dermatitis. continue with IV antibiotics follow BC, WC wound care consult Current Visit: Yes (2) Venous stasis dermatitis Status: Chronic Assessment and plan: wound care consult Current Visit: No Qualifiers: Laterality: bilateral Qualified Code(s): I83.11 - Varicose veins of right lower extremity with inflammation; I83.12 - Varicose veins of left lower extremity with inflammation (3) COPD (chronic obstructive pulmonary disease) Status: Acute Assessment and plan: appears stable on oxygen, steroids, nebs treatment Current Visit: Yes (4) HTN (hypertension) Status: Acute Assessment and plan: stable Current Visit: Yes (5) Dyslipidemia Status: Acute Assessment and plan: on statins Current Visit: Yes (6) Chest pain Status: Acute Assessment and plan: Cardiology is following, patient is on chronic anticogualtion due to remote PE/ DVT Current Visit: Yes Hospitalist: Subjective Interval history: Patient seen.No new issues. Doppler of the legs was negative Exam - Constitutional Vitals: Period Temp Pulse Resp BP Sys/Rtacey Pulse Ox Last 24 Hr 96.7 F-98.6 F 56-96 12-20 102-129/47-68 90-99 General appearance: no acute distress - Respiratory Respiratory exam: Present: clear to auscultation bilaterally - Cardiovascular Cardiovascular exam: Present: regular rate and rhythm - GI/Abdominal GI/Abdominal exam: Present: normal bowel sounds - Extremities Exam Extremities exam: Present: edema Results - Labs CBC & BMP: 12/29/16 06:31 12/29/16 06:31 Quality Measures - VTE Contraindication to Pharmacological VTE Prophylaxis: Coagulopathy Contraindication to Mechanical VTE Prophylaxis: Local Inflammation
--- NOTE | 2016-12-29 14:15 | Cardiology Progress Note ---
Assessment and Plan (1) Chest pain Status: Acute Assessment and plan: 81-year-old female patient presenting with cellulitis, intermittent chest pain. H/o CKD, COPD, hyperlipidemia, hypertension, GERD, and former smoker. T2Dm, controlled hyperthyroidism. Echo confirmed hyperdynamic LV function, moderate pulmonary hypertension. -CP. Normal cardiac biomarkers, no ischemic EKG changes, had prior stress test, negative for ischemia. likely non-cardiac in etiology. Anemia may contribute -Mod PHTN. This is due to diastolic dysfunction and underlying severe pulmonary disease. Echo from 2009 also showed mild pulmonary hypertension. Increase metoprolol to 50 mg twice a day, aim for a resting heart rate around 60 bpm. Blood pressure well controlled. Cont Lasix 20 mg twice a day. If BP allows, can add CCB. -Anemia. Iron deficiency. Start po iron supplement. Continue multivitamin. May need IV iron, if inadequate response. -GI consult, assess for occult bleeding. Unless her bleeding risk is prohibitive , she will need to be on lifelong Coumadin, due to history of DVT, pulmonary hypertension. Also, on aspirin for hypertension and type 2 diabetes mellitus. For now, hold these, until etiology of the anemia is established. Current Visit: Yes (2) Bilateral cellulitis of lower leg Status: Acute Current Visit: Yes (3) Anticoagulated on Coumadin Status: Chronic Current Visit: Yes (4) Renal insufficiency Status: Chronic Current Visit: Yes (5) COPD (chronic obstructive pulmonary disease) Status: Chronic Current Visit: No (6) Congestive heart failure Status: Chronic Current Visit: No (7) Anemia in chronic kidney disease Status: Chronic Current Visit: Yes (8) History of DVT (deep vein thrombosis) Status: Chronic Current Visit: No Cardiology - PN: Subj Interval history: She is feeling better. Not symptomatic at rest or with light activity. Crit 26. Exam (Progress Note) - Constitutional Vitals: Period Temp Pulse Resp BP Sys/Tracey Pulse Ox Last 24 Hr 96.7 F-98.6 F 56-96 12-20 102-129/47-68 90-99 General appearance: over weight - Head Head exam: Present: normal inspection - Eye Eye exam: Absent: conjunctival injection Pupils: Absent: dilated - ENT ENT exam: Present: normal external ear exam - Neck Neck exam: Present: normal inspection - Respiratory Respiratory exam: Present: clear to auscultation bilaterally - Cardiovascular Cardiovascular exam: Present: regular rate and rhythm - GI/Abdominal GI/Abdominal exam: Present: normal bowel sounds - Extremities Exam Extremities exam: Present: normal inspection, normal capillary refill, edema (1+ ) - Neurological Exam Neurological exam: Present: alert, oriented X3 - Psychiatric Psychiatric exam: Present: normal affect, normal mood - Skin Skin exam: Present: normal color, warm. Absent: cyanosis Result/EKG - Labs CBC & BMP: 12/29/16 06:31 12/29/16 06:31 Lab Results: I have reviewed the past 24 hour labs Labs: Laboratory Results - last 24 hr 12/28/16 12/28/16 12/29/16 15:38 20:28 06:31 WBC 10.1 RBC 3.03 L Hgb 8.0 L Hct 26.5 L MCV 87.5 MCH 26 L MCHC 30.2 L RDW 16.7 Plt Count 204 MPV 10.8 Neut % (Auto) 86.9 H Lymph % (Auto) 9.4 L [place] % (Auto) 2.9 Eos % (Auto) 0.0 Baso % (Auto) 0.1 Neut # (Auto) 8.8 H Lymph # (Auto) 1.0 L [place] # (Auto) 0.3 Eos # (Auto) 0.0 Baso # (Auto) 0.0 Immature Gran % 0.7 Nucleated RBC % 0.0 Immature Gran # 0.07 Nucleated RBCs # 0.00 Sodium Potassium Chloride Carbon Dioxide Anion Gap BUN Creatinine GFR Calculation BUN/Creatinine Ratio Glucose POC Glucose 267 H 238 H Calculated Osmolality Calcium 12/29/16 12/29/16 12/29/16 06:31 07:03 11:29 WBC RBC Hgb Hct MCV MCH MCHC RDW Plt Count MPV Neut % (Auto) Lymph % (Auto) [place] % (Auto) Eos % (Auto) Baso % (Auto) Neut # (Auto) Lymph # (Auto) [place] # (Auto) Eos # (Auto) Baso # (Auto) Immature Gran % Nucleated RBC % Immature Gran # Nucleated RBCs # Sodium 139 Potassium 4.9 Chloride 101 Carbon Dioxide 31 Anion Gap 11.9 BUN 34 H Creatinine 1.50 H GFR Calculation 33 BUN/Creatinine Ratio 22.00 H Glucose 183 H POC Glucose 212 H 230 H Calculated Osmolality 289.5 Calcium 9.1 - EKG EKG results: interpreted by me Quality Measures - VTE Contraindication to Pharmacological VTE Prophylaxis: Coagulopathy Contraindication to Mechanical VTE Prophylaxis: Local Inflammation
[2016-12-29 15:35] LABS: INR 1.6; PT Patient Result 17.4 SECS
[2016-12-29] MEDS: FERROUS GLUCONATE 324 MG TABLET PO SCH ×2 (16:27→21:45)
[2016-12-29] MEDS: ATORVASTATIN 20 MG TABLET PO SCH (21:45)
[2016-12-30] MEDS: ALBUTEROL/IPRATROPIUM 3 ML NEB RESP TX SCH ×7 (01:13→23:58)
[2016-12-30] MEDS: GENTAMICIN 0.3% OPH SOLN 5 ML BOTTLE LEFT EYE SCH ×6 (02:28→21:54)
[2016-12-30] MEDS: INSULIN REGULAR 100 UNIT/ML SUBCUT SCH ×4 (09:24→21:53)
[2016-12-30] MEDS: SPIRONOLACTONE 50 MG TABLET PO SCH (09:25)
[2016-12-30] MEDS: MULTIVITAMIN (CENTRUM) TABLET PO SCH (09:25)
[2016-12-30] MEDS: FUROSEMIDE 20 MG TABLET PO SCH (09:25)
[2016-12-30] MEDS: SKIN HEALING OINT (AQUAPHOR) 50 GM TUBE TOP SCH (09:25)
[2016-12-30] MEDS: FERROUS GLUCONATE 324 MG TABLET PO SCH ×3 (09:25→22:01)
[2016-12-30] MEDS: HYDROCORTISONE 1% CREAM 28 GM TUBE TOP SCH ×2 (09:26→21:53)
[2016-12-30] MEDS: predniSONE 20 MG TABLET PO SCH ×2 (09:26→21:53)
[2016-12-30] MEDS: PANTOPRAZOLE 40 MG TABLET PO SCH (09:26)
[2016-12-30] MEDS: METOPROLOL TARTRATE 50 MG TABLET PO SCH ×2 (09:26→21:53)
[2016-12-30] MEDS: CEFTAROLINE 300 MG in SODIUM CHLORIDE 0.9% 100 ML IV SCH ×2 (10:00→22:01)
--- NOTE | 2016-12-30 10:03 | Hospitalist Progress Note ---
Assessment and Plan (1) Bilateral cellulitis of lower leg Status: Acute Assessment and plan: due to stasis dermatitis. continue with IV antibiotics and switch Lasix to IV Lasix BC- negative so far, follow WC wound care consult PT consult Current Visit: Yes (2) Venous stasis dermatitis Status: Chronic Assessment and plan: wound care consult, increase Lasix, follow response Current Visit: No Qualifiers: Laterality: bilateral Qualified Code(s): I83.11 - Varicose veins of right lower extremity with inflammation; I83.12 - Varicose veins of left lower extremity with inflammation (3) COPD (chronic obstructive pulmonary disease) Status: Acute Assessment and plan: appears stable on oxygen, steroids, nebs treatment Current Visit: Yes (4) HTN (hypertension) Status: Acute Assessment and plan: stable Current Visit: Yes (5) Dyslipidemia Status: Acute Assessment and plan: on statins Current Visit: Yes (6) Chest pain Status: Acute Assessment and plan: Cardiology is following, patient is on chronic anticoagulation due to remote PE/ DVT Current Visit: Yes Hospitalist: Subjective Interval history: patient seen, she sitting at the edge of her bed. Her legs were markedly swollen. She had no new complaints. Exam - Constitutional Vitals: Period Temp Pulse Resp BP Sys/Tracey Pulse Ox Last 24 Hr 97.1 F-98.6 F 50-86 16-21 98-148/51-81 91-100 General appearance: no acute distress - Respiratory Respiratory exam: Present: clear to auscultation bilaterally - Cardiovascular Cardiovascular exam: Present: regular rate and rhythm - GI/Abdominal GI/Abdominal exam: Present: normal bowel sounds - Extremities Exam Extremities exam: Present: edema Results - Labs CBC & BMP: 12/29/16 06:31 12/29/16 06:31 Lab Results: I have reviewed the past 24 hour labs Quality Measures - VTE Contraindication to Pharmacological VTE Prophylaxis: Coagulopathy Contraindication to Mechanical VTE Prophylaxis: Local Inflammation
--- NOTE | 2016-12-30 10:36 | Gastrointestinal Consult Note ---
<Nikki Sahu - Last Filed: 12/30/16 10:38> Assessment and Plan (1) Anemia Status: Acute Assessment and plan: 12/30-Hgb of 8, negative stools for occult blood. Hx of endoscopy with no available records, no recollection of where, when. No reports of overt bleeding. Hx an anemia in past. Plan and addendum to follow by Dr Paez. Current Visit: Yes (2) Chest pain Status: Acute Assessment and plan: 12/30-Chest pain, following meal ingestion and exercise. Negative cardiac workup at present. Plan and addendum to follow by Dr paez Current Visit: Yes History of Present Illness Chief complaint: Anemia History of present illness: Ms. Sosa is a 81 year old female who was admitted to the hospital on 12/26 with SOB and chest pain. Pt has a history of COPD, venous insufficiency with DVT /PTE and stasis dermatitis. She was on Coumadin as well on admission. She was admitted to the hospital for further workup regarding her COPD and chest pain. Her cardiac workup has been found to be negative thus far. She states that the SOB began several days ago and worsened until she was admitted. She had some chest pain in her mid chest/epigastric region that was intermittent, varied in intensity and duration, that was worsened by upper body exercises at that time. She also had some nausea and diaphoresis. She had also just eaten prior to the chest pain. She states that she has had endoscopy workup done in the past but she cannot recall when or where at this time nor the findings of the scopes. She is also noted to have anemia with hemoglobin 8.0 in absence of overt bleeding. She is noted in Jul of last year to have hgb of 10 and trending down in Nov of this year with hgb betweem 8.7 and 9.8. Denies any melena or hematochezia. Denies any weight loss, fever or chills. Denies dysphagia. She has had no recent blood transfusions. She states she has had these in the past but cannot recall why. Stools are negative for occult blood. She states she has been told she was anemic before and took iron supplements in the past. She denies GERD however takes Prilosec for this. Her Coumadin is on hold at present time. Last INR 1.8. Home Medications Medication Instructions Recorded Confirmed Type Albuterol Sulfate [Ventolin HFA] 2 puff INH Q4H PRN 11/27/15 12/27/16 History Omeprazole [Prilosec] 20 mg PO DAILY 11/27/15 12/27/16 History Polyvinyl Alcohol 1.4% Oph Saray 2 drop BOTH EYES Q6H PRN 11/27/15 12/27/16 History [Artificial Tears Oph Soln] Propylthiouracil 50 mg PO BID 11/27/15 12/27/16 History Ondansetron Tab [Zofran Tab] 4 mg PO Q4HR PRN 12/13/15 12/27/16 History Magnesium Chloride [Slow Mag] 64 mg PO DAILY 12/14/15 12/27/16 History Benzonatate [Tessalon] 100 mg PO Q4HR PRN 04/12/16 12/27/16 History Fluticasone/Salmeterol 500-50 1 puff INH BID 04/12/16 12/27/16 History [Advair 500-50] Furosemide Tab [Lasix Tab] 20 mg PO BID DIURETIC 04/12/16 12/27/16 History Magnesium Hydroxide Susp [Milk of 30 ml PO Q12HR PRN 04/12/16 12/27/16 History Magnesia] Multivitamin [One Daily] 1 each PO DAILY 04/12/16 12/27/16 History Spironolactone [Aldactone] 50 mg PO DAILY 04/12/16 12/27/16 History Warfarin [Coumadin] 2 mg PO DIRECTED 04/24/16 12/27/16 History Aspirin Tab 325 mg PO DAILY tablet 04/29/16 12/27/16 Rx Atorvastatin [Lipitor] 20 mg PO BEDTIME tablet 04/29/16 12/27/16 Rx Metoprolol Tartrate Tab [Lopressor 12.5 mg PO BID tablet 04/29/16 12/27/16 Rx Tab] traMADol TAB [Ultram] 50 mg PO Q6H PRN #10 04/30/16 12/27/16 Rx Gentamicin 0.3% Oph Soln 2 drop LEFT EYE Q4HR #1 ophthalmic 11/16/16 12/27/16 Rx [Garamycin 0.3% Oph Soln] solution Oxycodone HCl/Acetaminophen 1 tablet PO Q6HR PRN 12/27/16 12/27/16 History [Oxycodone-Acetaminophen 5-325] Allergies Allergy/AdvReac Type Severity Reaction Status Date / Time meperidine [From Demerol] Allergy ITCHING Verified 11/27/15 13:32 Penicillins Allergy RASH Verified 11/27/15 13:32 Sulfa (Sulfonamide Allergy RASH Verified 11/27/15 13:32 Antibiotics) tetanus toxoid, adsorbed Allergy ANAPHYLAXIS Verified 11/27/15 13:32 hydrocodone [From Lortab] AdvReac Nausea Verified 11/27/15 13:32 morphine AdvReac Hypotension Verified 11/27/15 13:32 pentazocine [From Talwin] AdvReac Hallucinati Verified 11/27/15 13:32 ng Medical,Surgical,& Family Hx - Medical History Cardio: History of: CHF, Hypertension, IL (per pt in s) Neurology: History of: Vertigo (on occasion) No history of: Seizures, Neurologocal Cancer HEENT: History of: Eye Problem (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) Endocrine: History of: Thyroid Disorder (nodular goiter) Rheumatology: History of;: Rheumatoid Arthritis Respiratory: History of: Bronchitis, COPD, Obstructive Sleep Apnea, Pulmonary Embolism (), Pneumonia, Respiratory Problems (childhood asthma) Renal: History of: Renal Problems (left nephrectomy) Gastrointestinal: History of: GERD, Hemorrhoids (MILD), Liver Problems (remote jaundice following transfusion), GI Problems (hernia) Musculoskeletal: History of: Back/Neck Problems, Osteoporosis, Musculoskeletal Problems (severe edema.) Hematology: History of: Anemia, Clotting Problems (history of lower extremity DVT) Reproductive: History of: Reproductive Cancer (remote ovarian cancer) Other: History of: Anesthesia Reactions (N/V), Cancer (lower extremity melanoma) - Surgical History Cardiac Surgeries: Sugical HX of: Cardiac Surgery Thoracic Surgeries: Surgical HX of;: Lobectomy Patient denies;: Organ Transplant Neurologic Surgeries: Patient denies: Neurologic Surgery HEENT Surgeries: Surgical HX of: Eye Surgery (CATARACT BILATERAL) Abdominal Surgeries: Surgical HX of: Abdominal Surgery, Appendectomy, Cholecystectomy, Hernia Repair Reproductive Surgeries: Surgical HX of;: Hysterectomy, Tubal Ligation - Family History Family History: Reports;: Family Heart Disease - Social History Smoking Status: Former smoker Frequency of Alcohol Use: None Type of Drug Use: None 12 point system: reviewed and no additional remarkable complaints except as stated - Constitutional Constitutional: Present: as per HPI - EENT Eyes: Present: as per HPI Ears: Present: as per HPI Nose, mouth and throat: Present: as per HPI - Cardiovascular Cardiovascular: Present: as per HPI, chest pain at rest, dyspnea - Respiratory Respiratory: Present: as per HPI - Gastrointestinal Gastrointestinal: Present: as per HPI - Genitourinary Genitourinary: Present: as per HPI - Musculoskeletal Musculoskeletal: Present: as per HPI - Neurological Neurological: Present: as per HPI - Psychiatric Psychiatric: Present: as per HPI - Endocrine Endocrine: Present: as per HPI - Hematologic/Lymphatic Hematologic/Lymphatic: Present: as per HPI Exam - Constitutional Vitals: Period Temp Pulse Resp BP Sys/Tracey Pulse Ox Last 24 Hr 97.1 F-98.6 F 50-86 16-21 98-148/51-81 91-100 General appearance: normal weight, no acute distress - Head Head exam: Present: normal inspection, normocephalic - Eye Eye exam: Present: other (lids and conjunctiva unremarkable). Absent: scleral icterus - ENT ENT exam: Present: normal exam, normal oropharynx - Neck Neck exam: Present: normal inspection - Respiratory Respiratory exam: Present: clear to auscultation bilaterally. Absent: rales, rhonchi, wheezes - Cardiovascular Cardiovascular exam: Present: regular rate and rhythm. Absent: diastolic murmur , JVD, systolic murmur - GI/Abdominal GI/Abdominal exam: Present: normal bowel sounds, soft. Absent: ascites, distended, mass, organomegaly, tenderness - Extremities Exam Extremities exam: Present: normal inspection, full ROM - Back Exam Back exam: Present: normal inspection - Neurological Exam Neurological exam: Present: alert, oriented X3 - Psychiatric Psychiatric exam: Present: normal affect, normal mood - Skin Skin exam: Present: normal color, warm, dry Results - Labs CBC & BMP: 12/29/16 06:31 12/29/16 06:31 Lab Results: I have reviewed the past 24 hour labs Quality Measures - VTE Contraindication to Pharmacological VTE Prophylaxis: Coagulopathy Contraindication to Mechanical VTE Prophylaxis: Local Inflammation <Milad Paez - Last Filed: 12/30/16 17:10> History of Present Illness History of present illness: Ms. Sosa is a 81 year old female Exam - Constitutional Vitals: Period Temp Pulse Resp BP Sys/Tracey Pulse Ox Last 24 Hr 97.1 F-98.6 F 50-86 16-21 102-148/42-81 91-100 Results - Labs CBC & BMP: 12/29/16 06:31 12/29/16 06:31
[2016-12-30] MEDS: DESITIN 4OZ/NYSTATIN 15 GRAM MIXTURE PASTE TOP SCH ×2 (11:13→21:53)
--- NOTE | 2016-12-30 11:41 | Cardiology Progress Note ---
I, Ashley Arnold RN, am scribing for, and in the presence of, Osiel Mae MD 11:41. Assessment and Plan (1) Chest pain Status: Acute Assessment and plan: Cardiac biomarkers have been normal and no ischemic EKG changes have been noted. She had a normal Cardiolite stress test in November [address] Munoz. This is likely noncardiac in nature and could be related to patient's anemia. GI has been consulted to evaluate patient's anemia. I have discussed in detail the particulars of this case and I have examined the patient and reviewed the patient's chart both current and old. I was directly involved in the patient's evaluation and management and I completely agree with Ashley Arnold regarding this patient's evaluation and treatment plan. Current Visit: Yes (2) Pulmonary hypertension Status: Acute Assessment and plan: This is due to diastolic dysfunction and underlying severe pulmonary disease. Echo from 2009 also showed mild pulmonary hypertension. Metoprolol was increased to 50 mg twice a day yesterday. Blood pressure well controlled. Cont Lasix 20 mg twice a day. If BP allows, will consider adding CCB. Current Visit: Yes (3) Anemia Status: Acute Assessment and plan: H&H yesterday was noted to be 8.0 and 26.5. This is thought to be iron deficiency anemia. Patient has been started on p.o. iron supplement this admission. GI was consulted yesterday for evaluation of anemia. Coumadin and aspirin has been held until etiology of anemia is established. Current Visit: Yes (4) Bilateral cellulitis of lower leg Status: Acute Assessment and plan: Defer management to hospitalist. Current Visit: Yes (5) Anticoagulated on Coumadin Status: Chronic Assessment and plan: Patient has history of DVT and is anticoagulated with Coumadin. INR yesterday was stable at 1.6. Coumadin is currently on hold due to patient's anemia. Current Visit: Yes (6) Renal insufficiency Status: Chronic Assessment and plan: Creatinine yesterday was noted to be 1.5. Current Visit: Yes (7) COPD (chronic obstructive pulmonary disease) Status: Chronic Assessment and plan: This is currently well controlled. Will continue current plan of care. Current Visit: No (8) Congestive heart failure Status: Chronic Current Visit: No Cardiology - PN: Subj Interval history: Patient was seen on telemetry. She is resting in bed without any acute distress. She is currently requiring oxygen at 2 L via nasal cannula. She reports that she is feeling much better today. She did well overnight without any new cardiac complaints. Coumadin and aspirin are on hold until etiology of patient's anemia has been established. GI has been consulted. She had an echo this admission which revealed normal left ventricular size with hyperdynamic systolic function. Estimated left ventricular ejection fraction of 65%. Grade 1 diastolic dysfunction, moderate pulmonary hypertension and mild pulmonic valve insufficiency was noted. Dressing to bilateral lower extremities dry and intact. Vital signs are stable. No new labs to review today. Exam (Progress Note) - Constitutional Vitals: Period Temp Pulse Resp BP Sys/Tracey Pulse Ox Last 24 Hr 97.1 F-98.6 F 50-86 16-21 98-148/51-81 91-100 General appearance: no acute distress, over weight - Head Head exam: Present: normal inspection, normocephalic, atraumatic - Neck Neck exam: Present: normal inspection. Absent: tenderness, thyromegaly - Respiratory Respiratory exam: Present: clear to auscultation bilaterally. Absent: accessory muscle use, chest wall tenderness, rales, rhonchi, stridor, wheezes - Cardiovascular Cardiovascular exam: Present: regular rate and rhythm (With PACs and PVCs.). Absent: gallop, rubs - GI/Abdominal GI/Abdominal exam: Present: normal bowel sounds, soft. Absent: distended, firm , mass, tenderness - Extremities Exam Extremities exam: Present: edema, other (Dressing to bilateral lower extremities dry and intact.) - Neurological Exam Neurological exam: Present: alert, oriented X3 - Psychiatric Psychiatric exam: Present: normal affect, normal mood. Absent: agitated, anxious, depressed - Skin Skin exam: Present: normal color, warm, dry Result/EKG - Labs CBC & BMP: 12/29/16 06:31 12/29/16 06:31 Lab Results: I have reviewed the past 24 hour labs Labs: Laboratory Results - last 24 hr 12/28/16 12/29/16 12/29/16 06:22 11:29 15:20 WBC 11.5 D RBC 2.95 L Hgb 7.9 L Hct 26.7 L MCV 90.5 MCH 27 MCHC 29.6 L RDW 16.8 Plt Count 202 MPV 10.9 Neut % (Auto) 87.8 H Lymph % (Auto) 8.4 L [place] % (Auto) 3.3 Eos % (Auto) 0.0 Baso % (Auto) 0.2 Neut # (Auto) 10.1 H Lymph # (Auto) 1.0 L [place] # (Auto) 0.4 Eos # (Auto) 0.0 Baso # (Auto) 0.0 Total Counted 100 Immature Gran % 0.3 Nucleated RBC % 0.0 Immature Gran # 0.04 Segmented Neutrophils 85 Band Neutrophils 1 Lymphocytes 8 L Monocytes 6 Nucleated RBCs # 0.00 Platelet Estimate Adequate RBC Morphology Hypochromasia 1+ Microcytosis 1+ Ovalocytes Few Absolute Retic 0.1 Percent Retic 2.1 H Retic Hgb Equivalent 23.9 L INR 1.6 PT Patient/Control Mix 17.4 POC Glucose 230 H 12/29/16 12/29/16 12/30/16 17:14 22:28 08:06 WBC RBC Hgb Hct MCV MCH MCHC RDW Plt Count MPV Neut % (Auto) Lymph % (Auto) [place] % (Auto) Eos % (Auto) Baso % (Auto) Neut # (Auto) Lymph # (Auto) [place] # (Auto) Eos # (Auto) Baso # (Auto) Total Counted Immature Gran % Nucleated RBC % Immature Gran # Segmented Neutrophils Band Neutrophils Lymphocytes Monocytes Nucleated RBCs # Platelet Estimate RBC Morphology Hypochromasia Microcytosis Ovalocytes Absolute Retic Percent Retic Retic Hgb Equivalent INR PT Patient/Control Mix POC Glucose 173 H 275 H 206 H Quality Measures - VTE Contraindication to Pharmacological VTE Prophylaxis: Coagulopathy Contraindication to Mechanical VTE Prophylaxis: Local Inflammation Tu Martines Wesley, MD, personally performed the services described in this documentation, ascribed by Ashley Arnold RN in my presence, and it is both accurate and complete .
[2016-12-30] MEDS: FUROSEMIDE 40 MG/4 ML VIAL IV SCH (15:30)
[2016-12-30] MEDS: ATORVASTATIN 20 MG TABLET PO SCH (21:53)
[2016-12-31] MEDS: GENTAMICIN 0.3% OPH SOLN 5 ML BOTTLE LEFT EYE SCH ×6 (02:54→22:15)
[2016-12-31] MEDS: ALBUTEROL/IPRATROPIUM 3 ML NEB RESP TX SCH ×5 (03:48→20:35)
[2016-12-31 08:23] LABS: Basophils % 0.1 % (0.0-0.8); Hematocrit 29.1 VOL% (35.7-47.0); Hemoglobin 9.1 GM/DL (12.0-16.0); Immature Granulocytes % 0.4 %; Immature Granulocytes Absolute 0.03 #; Lymphocytes # 0.9 10*3/uL (1.4-4.0); Mean Corpuscular HGB Conc 31.3 GM/DL (32-36); Mean Corpuscular Hemoglobin 26 PG (27-34); Mean Corpuscular Volume 84.3 FL (87-102); Mean Platelet Volume 11.9 FL (9.6-12.0); Monocytes # 0.4 10*3/uL (0.11-0.8); Monocytes % 4.3 % (1.7-12.7); Neutrophils # 7.2 10*3/uL (1.4-7.4); Neutrophils % 84.2 % (38.7-73.9); Red Blood Count 3.45 MC/CUMM (3.8-5.5); Red Cell Distribution Width 16.3 % (9.3-17.3); White Blood Count 8.5 T/CUMM (4-12)
[2016-12-31 08:24] LABS: Platelet Count 144 T/CUMM (130-400)
[2016-12-31 08:46] LABS: Calcium 9.2 MG/DL (8.5-10.1); Osmolality,Calculated 297.4 MOS/KG (273-304); Potassium 4.6 MMOL/L (3.5-5.1)
[2016-12-31 08:50] LABS: Acanthocytes Few; Hypochromasia 1+; Microcytosis 1+; Ovalocytes Few; Platelet Estimate Adequate
[2016-12-31] MEDS: FUROSEMIDE 40 MG/4 ML VIAL IV SCH ×2 (09:00→15:45)
[2016-12-31] MEDS: CEFTAROLINE 300 MG in SODIUM CHLORIDE 0.9% 100 ML IV SCH ×2 (09:02→20:28)
--- NOTE | 2016-12-31 09:49 | Hospitalist Progress Note ---
Assessment and Plan (1) Bilateral cellulitis of lower leg Status: Acute Assessment and plan: due to stasis dermatitis.-improving continue with IV antibiotics and IV Lasix BC- negative so far, follow WC wound care consult PT consult Current Visit: Yes (2) Venous stasis dermatitis Status: Chronic Assessment and plan: wound care consult, continue Lasix and antibiotics Current Visit: No Qualifiers: Laterality: bilateral Qualified Code(s): I83.11 - Varicose veins of right lower extremity with inflammation; I83.12 - Varicose veins of left lower extremity with inflammation (3) COPD (chronic obstructive pulmonary disease) Status: Acute Assessment and plan: appears stable on oxygen, steroids, nebs treatment Current Visit: Yes (4) HTN (hypertension) Status: Acute Assessment and plan: stable Current Visit: Yes (5) Dyslipidemia Status: Acute Assessment and plan: on statins Current Visit: Yes (6) Chest pain Status: Acute Assessment and plan: Cardiology is following, patient is on chronic anticoagulation due to remote PE/ DVT Current Visit: Yes (7) Anemia Status: Acute Assessment and plan: stool was negative for occult blood. Appreciates GI's input, follow EGD today. Current Visit: Yes (8) ARF (acute renal failure) Status: Acute Assessment and plan: continue to monitor Current Visit: Yes (9) Diastolic CHF, acute Status: Acute Assessment and plan: Echo this admission revealed normal left ventricular size with hyperdynamic systolic function. Estimated left ventricular ejection fraction of 65%. Grade 1 diastolic dysfunction, moderate pulmonary hypertension and mild pulmonic valve insufficiency was noted. -follow Cardiology's recommendations. Current Visit: Yes Hospitalist: Subjective Interval history: Patient seen. She feels better and leg swelling is improving.Patient will be having an EGD today due to anemia. Exam - Constitutional Vitals: Period Temp Pulse Resp BP Sys/Tracey Pulse Ox Last 24 Hr 96.6 F-98.1 F 52-88 16-22 102-125/42-67 94-99 General appearance: no acute distress - Head Head exam: Present: normal inspection - Respiratory Respiratory exam: Present: clear to auscultation bilaterally - Cardiovascular Cardiovascular exam: Present: regular rate and rhythm - GI/Abdominal GI/Abdominal exam: Present: normal bowel sounds - Extremities Exam Extremities exam: Present: other (reducing edema) Results - Labs CBC & BMP: 12/31/16 07:22 12/31/16 07:22 Lab Results: I have reviewed the past 24 hour labs Quality Measures - VTE Contraindication to Pharmacological VTE Prophylaxis: Coagulopathy Contraindication to Mechanical VTE Prophylaxis: Local Inflammation
[2016-12-31] MEDS: INSULIN REGULAR 100 UNIT/ML SUBCUT SCH ×4 (09:51→20:27)
[2016-12-31 10:28] LABS: INR 1.3; PT Patient Result 13.8 SECS
[2016-12-31] MEDS ORDERED: LIDOCAINE 2% 5 ML VIAL ONE (11:10)
[2016-12-31] MEDS ORDERED: PROPOFOL 200 MG/20 ML VIAL IV ONE (11:10)
--- NOTE | 2016-12-31 11:21 | Operative Note ---
Date of procedure: 12/31/16 Pre-op diagnosis: atypical chest pain and anemia Procedure: EGD with dilatation 81-year-old female Atypical chest pain felt to be noncardiac also noted to have iron deficiency anemia now for upper endoscopy to further evaluate. Informed consent was obtained the patient She was sedated with Mac anesthesia per anesthesia protocol. Patient placed in left lateral decubitus position the Olympus flexible video upper endoscope was inserted oral cavity under direct vision the esophagus was intubated. Findings: Esophagus-normal proximal mid esophageal mucosa distal esophagus with moderate hiatal hernia distal esophageal stricture. No significant esophagitis, varices or Hernández's was identified. Stomach-normal insufflation normal mucosa to direct and retroflexed views of the body, fundus, cardia Stomach. Pylorus-normal Duodenum-normal from above the duodenum to the third portion of the duodenum. The scope was removed and subsequently a 54 Upper Sorbian bougie was passed without difficulty. Patient our procedure well she's discharge recovery in good condition. Postop diagnosis: #1 gastroesophageal reflux disease-continue PPI treatment and antireflux precautions #2 esophageal stricture repeat dilatation on an as-needed basis #3 iron deficiency anemia proceed with colonoscopy in a.m. Anesthesia: MAC Surgeon / Physician: Milad Paez Estimated blood loss: none Specimens: none sent Condition: stable Disposition: post procedure unit Results - Labs CBC & BMP: 12/31/16 07:22 12/31/16 07:22 Discharge Plan - Discharge Medications No Action Propylthiouracil 50 mg PO BID Polyvinyl Alcohol 1.4% Oph Saray [Artificial Tears Oph Soln] 2 drop BOTH EYES Q6H PRN PRN Reason: dry eyes Omeprazole [Prilosec] 20 mg PO DAILY Albuterol Sulfate [Ventolin HFA] 2 puff INH Q4H PRN PRN Reason: Shortness Of Breath/Wheezing Ondansetron Tab [Zofran Tab] 4 mg PO Q4HR PRN PRN Reason: Nausea Magnesium Chloride [Slow Mag] 64 mg PO DAILY Magnesium Hydroxide Susp [Milk of Magnesia] 30 ml PO Q12HR PRN PRN Reason: Constipation Multivitamin [One Daily] 1 each PO DAILY Furosemide Tab [Lasix Tab] 20 mg PO BID DIURETIC Benzonatate [Tessalon] 100 mg PO Q4HR PRN PRN Reason: Cough Spironolactone [Aldactone] 50 mg PO DAILY Fluticasone/Salmeterol 500-50 [Advair 500-50] 1 puff INH BID Warfarin [Coumadin] 2 mg PO DIRECTED Aspirin Tab 325 mg PO DAILY tablet Atorvastatin [Lipitor] 20 mg PO BEDTIME tablet Metoprolol Tartrate Tab [Lopressor Tab] 12.5 mg PO BID tablet traMADol TAB [Ultram] 50 mg PO Q6H PRN #10 PRN Reason: Pain Gentamicin 0.3% Oph Soln [Garamycin 0.3% Oph Soln] 2 drop LEFT EYE Q4HR #1 ophthalmic solution Oxycodone HCl/Acetaminophen [Oxycodone-Acetaminophen 5-325] 1 tablet PO Q6HR PRN PRN Reason: Pain - Follow Up or Referral - Forms/Instructions
--- NOTE | 2016-12-31 11:50 | Anesthesia ---
Anesthesia Post OP - Post Ansesthetic Evaluation Patient seen in post op: Yes Resp: within normal limits CV: within normal limits Mental: within normal limits Temp: within normal limits [id number]: within normal limits Nausea and Vomiting: within normal limits Pain: within normal limits
--- NOTE | 2016-12-31 13:18 | Cardiology Progress Note ---
Clayton Martines Rachel, EROS, am scribing for, and in the presence of, Osiel Mae MD 13:18. Assessment and Plan (1) Chest pain Status: Acute Assessment and plan: Cardiac biomarkers have been normal and no ischemic EKG changes have been noted. She had a normal Cardiolite stress test in November [address] Munoz. This is likely noncardiac in nature and could be related to patient's anemia. GI has been consulted and plans to do EGD today for further evaluation of anemia. This patient has been found to have an esophageal stricture with gastritis and reflux and we will sign off. Please reconsult when necessary thank you for this consultation. Current Visit: Yes (2) Pulmonary hypertension Status: Acute Assessment and plan: This is due to diastolic dysfunction and underlying severe pulmonary disease. Echo from 2009 also showed mild pulmonary hypertension. Metoprolol was increased to 50 mg twice a day yesterday. Blood pressure well controlled. Cont Lasix 20 mg twice a day. If BP allows, will consider adding CCB. Current Visit: Yes (3) Anemia Status: Acute Assessment and plan: H&H is 9.1 and 29.1 today. This is thought to be iron deficiency anemia. Patient has been started on p.o. iron supplement this admission. GI was consulted for evaluation of anemia. Coumadin and aspirin has been held until etiology of anemia is established. GI plans to do EGD today. Current Visit: Yes (4) Bilateral cellulitis of lower leg Status: Acute Assessment and plan: Defer management to hospitalist. Current Visit: Yes (5) Anticoagulated on Coumadin Status: Chronic Assessment and plan: Patient has history of DVT and is anticoagulated with Coumadin. INR 12/29/16 was stable at 1.6. Coumadin is currently on hold due to patient's anemia. Current Visit: Yes (6) Renal insufficiency Status: Chronic Assessment and plan: Creatinine today is 1.9. Current Visit: Yes (7) COPD (chronic obstructive pulmonary disease) Status: Chronic Assessment and plan: This is currently well controlled. Will continue current plan of care. Current Visit: No (8) Congestive heart failure Status: Chronic Current Visit: No Cardiology - PN: Subj Interval history: Patient was seen on telemetry. She is resting in bed without any acute distress. She is currently requiring oxygen at 2 L via nasal cannula. She did well overnight and is without any new cardiac complaints today. GI has been consulted and plans to do EGD today. Echo this admission revealed normal left ventricular size with hyperdynamic systolic function. Estimated left ventricular ejection fraction of 65%. Grade 1 diastolic dysfunction, moderate pulmonary hypertension and mild pulmonic valve insufficiency was noted. Vital signs are stable. Review of labs demonstrate an H&H of 9.1 and 29.1 and creatinine of 1.9 with BUN of 51. She is currently in sinus rhythm with heart rates in the 50s, with PACs and PVCs noted. Exam (Progress Note) - Constitutional Vitals: Period Temp Pulse Resp BP Sys/Tracey Pulse Ox Last 24 Hr 96.6 F-98.1 F 52-88 16-22 102-125/42-67 94-99 General appearance: no acute distress, over weight - Head Head exam: Present: normal inspection, normocephalic, atraumatic - Neck Neck exam: Present: normal inspection. Absent: lymphadenopathy, tenderness, thyromegaly - Respiratory Respiratory exam: Present: clear to auscultation bilaterally. Absent: accessory muscle use, chest wall tenderness, rales, rhonchi, stridor, wheezes - Cardiovascular Cardiovascular exam: Present: bradycardia, other (Sinus rhythm with PACs and PVCs.). Absent: gallop, rubs - GI/Abdominal GI/Abdominal exam: Present: soft. Absent: distended, firm, mass, tenderness - Extremities Exam Extremities exam: Present: normal capillary refill, calf tenderness, edema ( Trace edema to bilateral lower extremities. ), other ( Cellulitis noted to bilateral lower extremities.) - Neurological Exam Neurological exam: Present: alert, oriented X3 - Skin Skin exam: Present: warm, dry, erythema (Bilateral lower extremity) Result/EKG - Labs CBC & BMP: 12/31/16 07:22 12/31/16 07:22 Lab Results: I have reviewed the past 24 hour labs Labs: Laboratory Results - last 24 hr 12/28/16 12/30/16 12/30/16 06:22 11:35 16:17 WBC 11.5 D RBC 2.95 L Hgb 7.9 L Hct 26.7 L MCV 90.5 MCH 27 MCHC 29.6 L RDW 16.8 Plt Count 202 MPV 10.9 Neut % (Auto) 87.8 H Lymph % (Auto) 8.4 L Bailey % (Auto) 3.3 Eos % (Auto) 0.0 Baso % (Auto) 0.2 Neut # (Auto) 10.1 H Lymph # (Auto) 1.0 L Bailey # (Auto) 0.4 Eos # (Auto) 0.0 Baso # (Auto) 0.0 Total Counted 100 Immature Gran % 0.3 Nucleated RBC % 0.0 Immature Gran # 0.04 Segmented Neutrophils 85 Band Neutrophils 1 Lymphocytes 8 L Monocytes 6 Nucleated RBCs # 0.00 Platelet Estimate Adequate RBC Morphology Hypochromasia 1+ Microcytosis 1+ Ovalocytes Few Acanthocytes (Spur) Morphology Comment Absolute Retic 0.1 Percent Retic 2.1 H Retic Hgb Equivalent 23.9 L Sodium Potassium Chloride Carbon Dioxide Anion Gap BUN Creatinine GFR Calculation BUN/Creatinine Ratio Glucose POC Glucose 273 H 204 H Calculated Osmolality Calcium 12/30/16 12/31/16 12/31/16 21:21 07:15 07:22 WBC 8.5 RBC 3.45 L Hgb 9.1 L Hct 29.1 L MCV 84.3 L MCH 26 L MCHC 31.3 L RDW 16.3 Plt Count 144 D MPV 11.9 Neut % (Auto) 84.2 H Lymph % (Auto) 11.0 L Bailey % (Auto) 4.3 Eos % (Auto) 0.0 Baso % (Auto) 0.1 Neut # (Auto) 7.2 Lymph # (Auto) 0.9 L Bailey # (Auto) 0.4 Eos # (Auto) 0.0 Baso # (Auto) 0.0 Total Counted Immature Gran % 0.4 Nucleated RBC % 0.0 Immature Gran # 0.03 Segmented Neutrophils Band Neutrophils Lymphocytes Monocytes Nucleated RBCs # 0.00 Platelet Estimate Adequate RBC Morphology Hypochromasia 1+ Microcytosis 1+ Ovalocytes Few Acanthocytes (Spur) Few Morphology Comment Absolute Retic Percent Retic Retic Hgb Equivalent Sodium Potassium Chloride Carbon Dioxide Anion Gap BUN Creatinine GFR Calculation BUN/Creatinine Ratio Glucose POC Glucose 233 H 226 H Calculated Osmolality Calcium 12/31/16 07:22 WBC RBC Hgb Hct MCV MCH MCHC RDW Plt Count MPV Neut % (Auto) Lymph % (Auto) Bailey % (Auto) Eos % (Auto) Baso % (Auto) Neut # (Auto) Lymph # (Auto) Bailey # (Auto) Eos # (Auto) Baso # (Auto) Total Counted Immature Gran % Nucleated RBC % Immature Gran # Segmented Neutrophils Band Neutrophils Lymphocytes Monocytes Nucleated RBCs # Platelet Estimate RBC Morphology Hypochromasia Microcytosis Ovalocytes Acanthocytes (Spur) Morphology Comment Absolute Retic Percent Retic Retic Hgb Equivalent Sodium 140 Potassium 4.6 Chloride 101 Carbon Dioxide 31 Anion Gap 12.6 BUN 51 H Creatinine 1.90 H GFR Calculation 24 BUN/Creatinine Ratio 26.00 H Glucose 192 H POC Glucose Calculated Osmolality 297.4 Calcium 9.2 Quality Measures - VTE Contraindication to Pharmacological VTE Prophylaxis: Coagulopathy Contraindication to Mechanical VTE Prophylaxis: Local Inflammation Tu Martines Wesley, MD, personally performed the services described in this documentation, ascribed by Ashley Arnold RN in my presence, and it is both accurate and complete .
[2016-12-31] MEDS: predniSONE 20 MG TABLET PO SCH ×2 (13:30→20:28)
[2016-12-31] MEDS: MULTIVITAMIN (CENTRUM) TABLET PO SCH (13:30)
[2016-12-31] MEDS: SKIN HEALING OINT (AQUAPHOR) 50 GM TUBE TOP SCH (13:30)
[2016-12-31] MEDS: DESITIN 4OZ/NYSTATIN 15 GRAM MIXTURE PASTE TOP SCH ×2 (13:30→20:29)
[2016-12-31] MEDS: FERROUS GLUCONATE 324 MG TABLET PO SCH ×3 (13:30→20:28)
[2016-12-31] MEDS: PANTOPRAZOLE 40 MG TABLET PO SCH (13:30)
[2016-12-31] MEDS: HYDROCORTISONE 1% CREAM 28 GM TUBE TOP SCH (13:30)
[2016-12-31] MEDS: METOPROLOL TARTRATE 50 MG TABLET PO SCH ×2 (13:30→20:30)
[2016-12-31] MEDS: SPIRONOLACTONE 50 MG TABLET PO SCH (13:30)
[2016-12-31] MEDS ORDERED: POLYETHYLENE GLYCOL POWDER 255 GM BOTTLE PO ONE (18:00)
[2016-12-31] MEDS: ATORVASTATIN 20 MG TABLET PO SCH (20:28)
[2017-01-01] MEDS: ALBUTEROL/IPRATROPIUM 3 ML NEB RESP TX SCH ×7 (00:05→23:52)
[2017-01-01] MEDS ORDERED: MAGNESIUM CITRATE 300 ML BOTTLE ONE (02:15)
[2017-01-01] MEDS: GENTAMICIN 0.3% OPH SOLN 5 ML BOTTLE LEFT EYE SCH ×6 (02:30→21:48)
[2017-01-01 04:56] LABS: Basophils % 0.1 % (0.0-0.8); Hematocrit 31.4 VOL% (35.7-47.0); Hemoglobin 9.6 GM/DL (12.0-16.0); Immature Granulocytes % 0.7 %; Immature Granulocytes Absolute 0.07 #; Lymphocytes % 10.3 % (21.3-54.2); Mean Corpuscular HGB Conc 30.6 GM/DL (32-36); Mean Corpuscular Hemoglobin 26 PG (27-34); Mean Corpuscular Volume 85.8 FL (87-102); Mean Platelet Volume 11.1 FL (9.6-12.0); Monocytes # 0.5 10*3/uL (0.11-0.8); Monocytes % 4.8 % (1.7-12.7); Neutrophils # 8.3 10*3/uL (1.4-7.4); Neutrophils % 84.1 % (38.7-73.9); Platelet Count 256 T/CUMM (130-400); Red Blood Count 3.66 MC/CUMM (3.8-5.5); Red Cell Distribution Width 16.2 % (9.3-17.3); White Blood Count 9.9 T/CUMM (4-12)
[2017-01-01 06:02] LABS: Calcium 8.9 MG/DL (8.5-10.1); Osmolality,Calculated 300.1 MOS/KG (273-304); Potassium 4.3 MMOL/L (3.5-5.1)
[2017-01-01] MEDS: INSULIN REGULAR 100 UNIT/ML SUBCUT SCH ×6 (09:50→21:46)
[2017-01-01] MEDS: DESITIN 4OZ/NYSTATIN 15 GRAM MIXTURE PASTE TOP SCH ×2 (09:53→21:47)
[2017-01-01] MEDS: CEFTAROLINE 300 MG in SODIUM CHLORIDE 0.9% 100 ML IV SCH ×3 (09:54→23:03)
[2017-01-01] MEDS: SKIN HEALING OINT (AQUAPHOR) 50 GM TUBE TOP SCH (09:55)
--- NOTE | 2017-01-01 10:23 | Hospitalist Progress Note ---
Assessment and Plan (1) Bilateral cellulitis of lower leg Status: Acute Assessment and plan: due to stasis dermatitis.-improving continue with IV antibiotics and IV Lasix BC- negative so far, follow WC wound care consult PT consult Current Visit: Yes (2) Venous stasis dermatitis Status: Chronic Assessment and plan: wound care consult, continue Lasix and antibiotics Current Visit: No Qualifiers: Laterality: bilateral Qualified Code(s): I83.11 - Varicose veins of right lower extremity with inflammation; I83.12 - Varicose veins of left lower extremity with inflammation (3) COPD (chronic obstructive pulmonary disease) Status: Acute Assessment and plan: -improved reduce prednisolone to 20mg daily continue with oxygen, nebs treatment Current Visit: Yes (4) HTN (hypertension) Status: Acute Assessment and plan: stable Current Visit: Yes (5) Dyslipidemia Status: Acute Assessment and plan: on statins Current Visit: Yes (6) Chest pain Status: Acute Assessment and plan: Cardiology is following, patient is on chronic anticoagulation due to remote PE/ DVT Current Visit: Yes (7) Anemia Status: Acute Assessment and plan: stool was negative for occult blood. It is due to Fe deficiency. EGD showed #1 gastroesophageal reflux disease #2 esophageal stricture Plan For Colonoscopy today continue PPI treatment and antireflux precautions repeat dilatation on an as-needed basis -continue to hold Coumdin- was taking for previous history of DVT, recent doppler was negative Current Visit: Yes (8) ARF (acute renal failure) Status: Acute Assessment and plan: slowly improving,continue to monitor Current Visit: Yes (9) Diastolic CHF, acute Status: Acute Assessment and plan: Echo this admission revealed normal left ventricular size with hyperdynamic systolic function. Estimated left ventricular ejection fraction of 65%. Grade 1 diastolic dysfunction, moderate pulmonary hypertension and mild pulmonic valve insufficiency was noted. -follow Cardiology's recommendations. Current Visit: Yes (10) Hyperglycemia Status: Acute Assessment and plan: worsened by steroids -will place on SSC insulin HbA1c level accucheks Current Visit: Yes Hospitalist: Subjective Interval history: patient seen. She had an EGD yesterday which showed GERD, esophageal stricture.Patient is going to have a colonoscopy today. Exam - Constitutional Vitals: Period Temp Pulse Resp BP Sys/Tracey Pulse Ox Last 24 Hr 96.3 F-97.9 F 51-92 12-20 86-131/41-65 90-100 General appearance: no acute distress - Respiratory Respiratory exam: Present: clear to auscultation bilaterally - Cardiovascular Cardiovascular exam: Present: regular rate and rhythm - GI/Abdominal GI/Abdominal exam: Present: normal bowel sounds - Extremities Exam Extremities exam: Present: other (reducing edema) Results - Labs CBC & BMP: 01/01/17 04:03 01/01/17 04:03 Quality Measures - VTE Contraindication to Pharmacological VTE Prophylaxis: Coagulopathy Contraindication to Mechanical VTE Prophylaxis: Local Inflammation
[2017-01-01] MEDS ORDERED: PROPOFOL 200 MG/20 ML VIAL IV ONE (10:50)
[2017-01-01] MEDS ORDERED: GLYCOPYRROLATE 0.4 MG/2 ML VIAL ONE (10:50)
[2017-01-01] MEDS ORDERED: PHENYLEPHRINE 1 MG/10 ML SYRINGE IV ONE (10:50)
[2017-01-01] MEDS ORDERED: LIDOCAINE 2% 5 ML VIAL ONE (10:50)
--- NOTE | 2017-01-01 11:19 | Operative Note ---
Date of procedure: 01/01/17 Pre-op diagnosis: iron deficiency anemia Procedure: Colonoscopy with electrocautery snare and hot biopsy polypectomy 81-year-old female with iron deficiency anemia and chronic anticoagulation now for colonoscopy to further evaluate. Informed consent was obtained was from the patient. She was sedated with Mac anesthesia per anesthesia protocol. Patient placed in left lateral decubitus position digital exam was normal no rectal masses felt. The Olympus flexible video colonoscope certainly canal advanced under direct vision to the level of the cecum. Withdrawal time 9 minutes Prep limited visibility no large lesions seen. Findings: Cecum-limited prep but no large polyps or mass lesions seen ileocecal valve appendiceal orifice identified. Ascending colon-normal with exam limited by prep Transverse colon-normal exam limited by Descending colon-diverticulosis otherwise exam limited by prep no large lesions seen. Sigmoid colon-diverticulosis moderate in severity 2 polyps seen in the first polyp was 5 mm polyp that was hot biopsy fulgurated in the proximal sigmoid colon. in the rectosigmoid colon there is a 1 cm pedunculated polyp that was snare removed. Rectum-normal to direct retroflex views exam limited by less than ideal prep. Patient was discharge recovery in good condition at the termination of the procedure. Postop diagnosis: #1 colon polyps-suspect benign polyps follow-up path when available #2 diverticulosis coli-increase dietary fiber and fluid intake #3 iron deficiency anemia no clear source for GI blood loss check small bowel series to complete her workup. Resume anticoagulation if needed January 02. Anesthesia: MAC Surgeon / Physician: Milad Paez Estimated blood loss: none Specimens: other (colon polyps 2 sigmoid and rectosigmoid) Condition: stable Disposition: post procedure unit Results - Labs CBC & BMP: 01/01/17 04:03 01/01/17 04:03 Discharge Plan - Discharge Medications No Action Propylthiouracil 50 mg PO BID Polyvinyl Alcohol 1.4% Oph Saray [Artificial Tears Oph Soln] 2 drop BOTH EYES Q6H PRN PRN Reason: dry eyes Omeprazole [Prilosec] 20 mg PO DAILY Albuterol Sulfate [Ventolin HFA] 2 puff INH Q4H PRN PRN Reason: Shortness Of Breath/Wheezing Ondansetron Tab [Zofran Tab] 4 mg PO Q4HR PRN PRN Reason: Nausea Magnesium Chloride [Slow Mag] 64 mg PO DAILY Magnesium Hydroxide Susp [Milk of Magnesia] 30 ml PO Q12HR PRN PRN Reason: Constipation Multivitamin [One Daily] 1 each PO DAILY Furosemide Tab [Lasix Tab] 20 mg PO BID DIURETIC Benzonatate [Tessalon] 100 mg PO Q4HR PRN PRN Reason: Cough Spironolactone [Aldactone] 50 mg PO DAILY Fluticasone/Salmeterol 500-50 [Advair 500-50] 1 puff INH BID Warfarin [Coumadin] 2 mg PO DIRECTED Aspirin Tab 325 mg PO DAILY tablet Atorvastatin [Lipitor] 20 mg PO BEDTIME tablet Metoprolol Tartrate Tab [Lopressor Tab] 12.5 mg PO BID tablet traMADol TAB [Ultram] 50 mg PO Q6H PRN #10 PRN Reason: Pain Gentamicin 0.3% Oph Soln [Garamycin 0.3% Oph Soln] 2 drop LEFT EYE Q4HR #1 ophthalmic solution Oxycodone HCl/Acetaminophen [Oxycodone-Acetaminophen 5-325] 1 tablet PO Q6HR PRN PRN Reason: Pain - Follow Up or Referral - Forms/Instructions
--- NOTE | 2017-01-01 11:22 | Anesthesia ---
Anesthesia Post OP - Post Ansesthetic Evaluation Patient seen in post op: Yes Resp: within normal limits CV: within normal limits Mental: within normal limits Temp: within normal limits [id number]-Eb-Gdauyfhrb: within normal limits Nausea and Vomiting: within normal limits Pain: within normal limits
[2017-01-01] MEDS ORDERED: GLUCAGON 1 MG VIAL IM PRN (11:31)
[2017-01-01] MEDS ORDERED: DEXTROSE 50% 25 GM/50 ML VIAL IV PRN (11:31)
[2017-01-01] MEDS: FUROSEMIDE 40 MG/4 ML VIAL IV SCH ×2 (13:47→17:28)
[2017-01-01] MEDS: MULTIVITAMIN (CENTRUM) TABLET PO SCH (13:50)
[2017-01-01] MEDS: SPIRONOLACTONE 50 MG TABLET PO SCH (13:50)
[2017-01-01] MEDS: PANTOPRAZOLE 40 MG TABLET PO SCH (13:51)
[2017-01-01] MEDS: METOPROLOL TARTRATE 50 MG TABLET PO SCH ×2 (13:51→21:46)
[2017-01-01] MEDS: FERROUS GLUCONATE 324 MG TABLET PO SCH ×3 (13:53→21:46)
[2017-01-01] MEDS: predniSONE 20 MG TABLET PO SCH (15:35)
[2017-01-01] MEDS: ATORVASTATIN 20 MG TABLET PO SCH (21:46)
[2017-01-02] MEDS: GENTAMICIN 0.3% OPH SOLN 5 ML BOTTLE LEFT EYE SCH ×6 (01:43→21:27)
[2017-01-02] MEDS: ALBUTEROL/IPRATROPIUM 3 ML NEB RESP TX SCH ×5 (03:14→19:21)
[2017-01-02] MEDS: METOPROLOL TARTRATE 50 MG TABLET PO SCH ×2 (09:38→20:59)
[2017-01-02] MEDS: MULTIVITAMIN (CENTRUM) TABLET PO SCH (09:38)
[2017-01-02] MEDS: SPIRONOLACTONE 50 MG TABLET PO SCH (09:38)
[2017-01-02] MEDS: FERROUS GLUCONATE 324 MG TABLET PO SCH ×3 (09:38→20:59)
[2017-01-02] MEDS: predniSONE 20 MG TABLET PO SCH (09:39)
[2017-01-02] MEDS: DESITIN 4OZ/NYSTATIN 15 GRAM MIXTURE PASTE TOP SCH ×2 (09:39→20:59)
[2017-01-02] MEDS: PANTOPRAZOLE 40 MG TABLET PO SCH (09:39)
[2017-01-02] MEDS: CEFTAROLINE 300 MG in SODIUM CHLORIDE 0.9% 100 ML IV SCH ×2 (09:40→20:58)
[2017-01-02] MEDS: INSULIN REGULAR 100 UNIT/ML SUBCUT SCH ×4 (09:40→20:59)
[2017-01-02] MEDS: FUROSEMIDE 40 MG/4 ML VIAL IV SCH ×2 (09:49→16:05)
[2017-01-02] MEDS: SKIN HEALING OINT (AQUAPHOR) 50 GM TUBE TOP SCH (10:00)
--- NOTE | 2017-01-02 10:38 | Gastrointestinal Progress Note ---
<Luis AlbertoNikki Meme - Last Filed: 01/02/17 10:36> Assessment and Plan (1) Anemia Status: Acute Assessment and plan: 01/02-No overt bleeding. Small bowel series pending for today. Plan and addendum to follow by Dr paez. 12/30-Hgb of 8, negative stools for occult blood. Hx of endoscopy with no available records, no recollection of where, when. No reports of overt bleeding. Hx an anemia in past. Plan and addendum to follow by Dr Paez. Current Visit: Yes (2) Chest pain Status: Acute Assessment and plan: 12/30-Chest pain, following meal ingestion and exercise. Negative cardiac workup at present. Plan and addendum to follow by Dr paez Current Visit: Yes Gastroenterology - PN: Subj Interval history: CC: ANemia Pt is seen, up in chair. States she is feeling about the same at present time. Denies any abdominal pain, nausea or vomiting. States that she is tolerating her diet. Small bowel series is pending for today. Abdomen is soft, nontender. ROS: Denies SOB or chest pain Exam (Progress Note) - Constitutional Vitals: Period Temp Pulse Resp BP Sys/Tracey Pulse Ox Last 24 Hr 97.6 F-99.1 F 52-85 13-18 86-130/38-59 90-100 General appearance: normal weight, no acute distress - Head Head exam: Present: normal inspection, normocephalic - Eye Eye exam: Present: other (lids and conjunctiva unremarkable). Absent: scleral icterus - ENT ENT exam: Present: normal exam, normal oropharynx - Neck Neck exam: Present: normal inspection - Respiratory Respiratory exam: Present: clear to auscultation bilaterally. Absent: rales, rhonchi, wheezes - Cardiovascular Cardiovascular exam: Present: regular rate and rhythm. Absent: diastolic murmur , JVD, systolic murmur - GI/Abdominal GI/Abdominal exam: Present: normal bowel sounds, soft. Absent: ascites, distended, mass, organomegaly, tenderness - Extremities Exam Extremities exam: Present: normal inspection, full ROM - Back Exam Back exam: Present: normal inspection - Neurological Exam Neurological exam: Present: alert, oriented X3 - Psychiatric Psychiatric exam: Present: normal affect, normal mood - Skin Skin exam: Present: normal color, warm, dry Results - Labs CBC & BMP: 01/01/17 04:03 01/01/17 04:03 Lab Results: I have reviewed the past 24 hour labs <Milad Paez - Last Filed: 01/02/17 17:21> Exam (Progress Note) - Constitutional Vitals: Period Temp Pulse Resp BP Sys/Tracey Pulse Ox Last 24 Hr 97.6 F-99.1 F 56-94 16-18 94-130/44-59 90-99 Results - Labs CBC & BMP: 01/01/17 04:03 01/01/17 04:03
--- NOTE | 2017-01-02 11:27 | Pathology Report from [facility] ---
ACCESSION # : [id number] PATIENT NAME : Mone Sosa ORDERING DR : TYLOR WALTERS MD CLINICAL HX: Anemia POST-OP DX: Colon polyp sigmoid SPECIMEN INFO: Colon polyp sigmoid GROSS DESCRIPTION: Received in formalin labeled "MONE SOSA" is a 0.6 x 0.4 cm aggregate of muniz tissue, submitted in one cassette. DIAGNOSIS FOR MONE SOSA: COLON, SIGMOID, BIOPSY: Tubular adenoma. SERVICE DATE: 01/01/2017 REPORT DATE: 01/02/2017 PATHOLOGIST: Flavio Esquivel III, M.D. MTDD
--- NOTE | 2017-01-02 14:19 | Fluoroscopy Report ---
Exam: FL small bowel follow through Date: 01/02/2017 Indication: Iron deficiency anemia Comparison: None Findings: Outsole Compressor image was obtained. Surgical clips present right upper quadrant. Fluoroscopy time 1 minute 57 seconds with 18 total images obtained. Images were obtained for one hour and 30 minutes. The patient was given barium to drink. The stomach duodenal bulb and C-loop are unremarkable. The small bowel reveals no segmentation or flocculation of the barium column. The terminal ileum is unremarkable. No thickening of bowel wall loops or mass lesion present. Impression: 1. No evidence of bowel obstruction or stricture or stenosis 2. Previous cholecystectomy. PROCEDURE INTERPRETED AT [facility] DEPARTMENT OF RADIOLOGY Final Report Signed by: Dr. Moshe Feliz
--- NOTE | 2017-01-02 17:01 | Hospitalist Progress Note ---
Assessment and Plan (1) Bilateral cellulitis of lower leg Status: Acute Assessment and plan: This program is resolving on antibiotics. I will reassess the patient in the morning. I believe if there is any remnant erythema and tenderness of the time the patient should be able to go home on oral antibiotics. Choices may be limited because of her long list of medication allergies Current Visit: Yes (2) CHF (congestive heart failure) Status: Acute Assessment and plan: Patient seemed to have no respiratory difficulty at this point. I believe the acute decompensation is resolved Current Visit: Yes (3) COPD (chronic obstructive pulmonary disease) Status: Acute Assessment and plan: Stable at this point continue medications Current Visit: Yes Hospitalist: Subjective Interval history: Patient has been seen interviewed and examined and chart has been reviewed. Patient has been seen soon after returning from radiology testing where she has had an upper GI with small bowel follow-through. This is my first encounter with this 81-year-old female admitted to the hospital approximately 7 days ago with increasing pain in the legs with redness. Patient has chronic venous stasis of involvement of both lower extremities. Her admission she was thought to have developed a cellulitis in association with the venous stasis. Patient has multiple drug allergies including penicillin but she has tolerated use of Teflaro over the course of the 7 days. I believe this in detail and all of these clinical syndrome that the patient should be tending to discharge in the next 24 hours. Exam - Constitutional Vitals: Period Temp Pulse Resp BP Sys/Tracey Pulse Ox Last 24 Hr 97.6 F-99.1 F 56-94 16-18 94-130/44-59 90-99 General appearance: normal weight, no acute distress - Head Head exam: Present: normocephalic, atraumatic, other (She has only one right eye ) - Eye Eye exam: Present: EOMI, other (The right pupil is reacting to the right there is no icterus) - Neck Neck exam: Present: other (Supple neck, no lymphadenopathy no thyromegaly) - Respiratory Respiratory exam: Present: clear to auscultation bilaterally, other (No wheezing no rales) - Cardiovascular Cardiovascular exam: Present: regular rate and rhythm - GI/Abdominal GI/Abdominal exam: Present: normal bowel sounds, soft (No guarding no organomegaly patient is able to eat solid meals) - Neurological Exam Neurological exam: Present: alert, oriented X3, CN II-XII intact - Psychiatric Psychiatric exam: Present: normal affect, normal mood - Skin Skin exam: Present: normal color, warm, dry Results - Labs CBC & BMP: 01/01/17 04:03 01/01/17 04:03 Lab Results: I have reviewed the past 24 hour labs Quality Measures - VTE Contraindication to Pharmacological VTE Prophylaxis: Coagulopathy Contraindication to Mechanical VTE Prophylaxis: Local Inflammation
[2017-01-02] MEDS: ATORVASTATIN 20 MG TABLET PO SCH (20:58)
[2017-01-03] MEDS: ALBUTEROL/IPRATROPIUM 3 ML NEB RESP TX SCH ×5 (00:29→15:16)
[2017-01-03] MEDS: GENTAMICIN 0.3% OPH SOLN 5 ML BOTTLE LEFT EYE SCH ×5 (02:00→18:17)
[2017-01-03] MEDS: INSULIN REGULAR 100 UNIT/ML SUBCUT SCH ×3 (08:19→17:31)
[2017-01-03] MEDS: SPIRONOLACTONE 50 MG TABLET PO SCH (08:21)
[2017-01-03] MEDS: METOPROLOL TARTRATE 50 MG TABLET PO SCH (08:21)
[2017-01-03] MEDS: MULTIVITAMIN (CENTRUM) TABLET PO SCH (08:21)
[2017-01-03] MEDS: predniSONE 20 MG TABLET PO SCH (08:21)
[2017-01-03] MEDS: FERROUS GLUCONATE 324 MG TABLET PO SCH ×2 (08:21→14:55)
[2017-01-03] MEDS: PANTOPRAZOLE 40 MG TABLET PO SCH (08:21)
[2017-01-03] MEDS: FUROSEMIDE 40 MG/4 ML VIAL IV SCH ×2 (08:22→17:31)
[2017-01-03] MEDS: DESITIN 4OZ/NYSTATIN 15 GRAM MIXTURE PASTE TOP SCH (08:27)
[2017-01-03] MEDS: SKIN HEALING OINT (AQUAPHOR) 50 GM TUBE TOP SCH (08:27)
[2017-01-03] MEDS: CEFTAROLINE 300 MG in SODIUM CHLORIDE 0.9% 100 ML IV SCH (11:14)
[2017-01-03 11:59] VITALS: BP 123/80
--- NOTE | 2017-01-03 12:00 | Discharge Summary ---
Diagnosis - Discharge Diagnosis (1) Bilateral cellulitis of lower leg Status: Acute (2) CHF (congestive heart failure) Status: Acute (3) COPD (chronic obstructive pulmonary disease) Status: Acute Discharge Plan - Discharge Data Disposition: Rehab Fac/Unit W Plan Readm Condition at Discharge: Stable Discharge Diet: heart healthy Activity: resume usual activities as tolerated Hygiene: no restrictions Weight Bearing at Discharge: weight bear as tolerated Driving: not until seen by doctor Contact your physician if you experience:: fever over 101, Redness or swelling, Shortness of breath - Discharge Medications New Aspirin EC Tab 81 mg PO DAILY tablet Ferrous Gluconate 324 mg PO TID tablet Skin Healing Oint (Aquaphor) [Aquaphor] 1 applic TOP DAILY applic Warfarin [Coumadin] 2 mg PO DAILY@1800 tablet Continue Propylthiouracil 50 mg PO BID Magnesium Chloride [Slow Mag] 64 mg PO DAILY Furosemide Tab [Lasix Tab] 20 mg PO BID DIURETIC Fluticasone/Salmeterol 500-50 [Advair 500-50] 1 puff INH BID traMADol TAB [Ultram] 50 mg PO Q6H PRN #10 PRN Reason: Pain Albuterol Sulfate [Ventolin HFA] 2 puff INH Q4H PRN #30 PRN Reason: Shortness Of Breath/Wheezing Furosemide Tab [Lasix Tab] 20 mg PO BID DIURETIC #60 Magnesium Chloride [Slow Mag] 64 mg PO DAILY #30 Propylthiouracil 50 mg PO BID #60 traMADol TAB [Ultram] 50 mg PO Q6H PRN #10 PRN Reason: Pain Fluticasone/Salmeterol 500-50 [Advair 500-50] 1 puff INH BID #1 Spironolactone [Aldactone] 50 mg PO DAILY #30 No Action Polyvinyl Alcohol 1.4% Oph Saray [Artificial Tears Oph Soln] 2 drop BOTH EYES Q6H PRN PRN Reason: dry eyes Omeprazole [Prilosec] 20 mg PO DAILY Ondansetron Tab [Zofran Tab] 4 mg PO Q4HR PRN PRN Reason: Nausea Magnesium Hydroxide Susp [Milk of Magnesia] 30 ml PO Q12HR PRN PRN Reason: Constipation Multivitamin [One Daily] 1 each PO DAILY Benzonatate [Tessalon] 100 mg PO Q4HR PRN PRN Reason: Cough Warfarin [Coumadin] 2 mg PO DIRECTED Aspirin Tab 325 mg PO DAILY tablet Atorvastatin [Lipitor] 20 mg PO BEDTIME tablet Metoprolol Tartrate Tab [Lopressor Tab] 12.5 mg PO BID tablet Gentamicin 0.3% Oph Soln [Garamycin 0.3% Oph Soln] 2 drop LEFT EYE Q4HR #1 ophthalmic solution Oxycodone HCl/Acetaminophen [Oxycodone-Acetaminophen 5-325] 1 tablet PO Q6HR PRN PRN Reason: Pain - Follow Up or Referral - Forms/Instructions Exam - Constitutional Vitals: Period Temp Pulse Resp BP Sys/Tracey Pulse Ox Last 24 Hr 97.0 F-98.8 F 52-94 15-20 88-127/42-62 92-100 General appearance: normal weight, other - Head Head exam: Present: normal inspection (In no acute distress), other (However 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) - Eye Eye exam: Present: other (Normal pupillary response to the right eye) - Respiratory Respiratory exam: Present: clear to auscultation bilaterally, other (No rales no wheezing no rhonchi) - Cardiovascular Cardiovascular exam: Present: regular rate and rhythm, other (No murmurs of the) - GI/Abdominal GI/Abdominal exam: Present: normal bowel sounds, soft, other (No guarding no organomegaly) - Extremities Exam Extremities exam: Present: full ROM, other (Mild ankle edema is no denudation of the skin however both legs are wrapped in [place] dressing between just above the ankle and below the knee no weepage of the skin) - Neurological Exam Neurological exam: Present: alert, oriented X3, CN II-XII intact - Psychiatric Psychiatric exam: Present: normal affect, normal mood - Skin Skin exam: Present: warm, dry, other (History of cellulitis and a stasis dermatitis which appears is responded to treatment Shan. Patient still needs wrapping with a compressive dressing in the lower extremities between the knee and just above the ankle) Discharge Results Procedures and tests throughout hospitalization: Pending Orders 12/28/16 13:10 Occult Blood, Stool Routine 12/28/16 18:36 Wound Culture Routine 12/30/16 13:20 Occult Blood, Stool Routine Labs on day of discharge: Labs from last 24 hours 01/03/17 01/03/17 01/02/17 11:41 07:26 20:28 POC Glucose 270 H 141 H 339 H 01/02/17 16:00 POC Glucose 269 H DS: Provider Date of admission: 12/26/16 16:53 Primary care physician: Marcellus Gomez MD Attending physician on admission: Yfn Espana MD Consults: 12/26/16 21:01 Consult to Pharmacy [CONS] Routine Reason for Pharmacy Consult: Adjust Meds Renal Funct 12/27/16 04:07 Consult to Pastoral Services [CONS] Routine Comment: Pastoral Screen: Request Head Of [employer] Visit Pastoral Screen Source of Request: Patient 12/27/16 09:20 Consult to Physician [CONS] Routine Comment: cp Consulting Provider: William Campbell Person Notified: JEN Date Notified: 12/27/16 Time Notified: 09:40 12/28/16 18:36 Consult to Wound Care - [place] [CONS] Routine Reason for Wound Care: Wound Care Management 12/29/16 13:44 Consult to Physical Therapy [CONS] Routine Reason for Physical Therapy: Evaluate and Treat 12/29/16 14:11 Consult to Physician [CONS] Routine Comment: Consulting Provider: Milad Paez Consult to Specialist Group: Gastroenterology When should Consulting Provider be notified: Now Person Notified: Dr Urban Date Notified: 12/29/16 Time Notified: 14:34 01/01/17 11:35 Consult to Case Mgmt/Social Srvs [CONS] Routine Reason for Case Mgmt/Social Srvs: Discharge Planning Consult Comment: for possilbe swing bed Discharging clinician: Chad Tucker MD
--- NOTE | 2017-01-03 12:23 | Discharge Summary ---
Diagnosis - Discharge Diagnosis (1) Bilateral cellulitis of lower leg Status: Acute (2) CHF (congestive heart failure) Status: Acute (3) COPD (chronic obstructive pulmonary disease) Status: Acute Discharge Plan - Discharge Data Disposition: Rehab Fac/Unit W Plan Readm - Discharge Medications New Aspirin EC Tab 81 mg PO DAILY tablet Ferrous Gluconate 324 mg PO TID tablet Skin Healing Oint (Aquaphor) [Aquaphor] 1 applic TOP DAILY applic Warfarin [Coumadin] 2 mg PO DAILY@1800 tablet Continue Propylthiouracil 50 mg PO BID Magnesium Chloride [Slow Mag] 64 mg PO DAILY Furosemide Tab [Lasix Tab] 20 mg PO BID DIURETIC Fluticasone/Salmeterol 500-50 [Advair 500-50] 1 puff INH BID traMADol TAB [Ultram] 50 mg PO Q6H PRN #10 PRN Reason: Pain Albuterol Sulfate [Ventolin HFA] 2 puff INH Q4H PRN #30 PRN Reason: Shortness Of Breath/Wheezing Furosemide Tab [Lasix Tab] 20 mg PO BID DIURETIC #60 Magnesium Chloride [Slow Mag] 64 mg PO DAILY #30 Propylthiouracil 50 mg PO BID #60 traMADol TAB [Ultram] 50 mg PO Q6H PRN #10 PRN Reason: Pain Fluticasone/Salmeterol 500-50 [Advair 500-50] 1 puff INH BID #1 Spironolactone [Aldactone] 50 mg PO DAILY #30 No Action Polyvinyl Alcohol 1.4% Oph Saray [Artificial Tears Oph Soln] 2 drop BOTH EYES Q6H PRN PRN Reason: dry eyes Omeprazole [Prilosec] 20 mg PO DAILY Ondansetron Tab [Zofran Tab] 4 mg PO Q4HR PRN PRN Reason: Nausea Magnesium Hydroxide Susp [Milk of Magnesia] 30 ml PO Q12HR PRN PRN Reason: Constipation Multivitamin [One Daily] 1 each PO DAILY Benzonatate [Tessalon] 100 mg PO Q4HR PRN PRN Reason: Cough Warfarin [Coumadin] 2 mg PO DIRECTED Aspirin Tab 325 mg PO DAILY tablet Atorvastatin [Lipitor] 20 mg PO BEDTIME tablet Metoprolol Tartrate Tab [Lopressor Tab] 12.5 mg PO BID tablet Gentamicin 0.3% Oph Soln [Garamycin 0.3% Oph Soln] 2 drop LEFT EYE Q4HR #1 ophthalmic solution Oxycodone HCl/Acetaminophen [Oxycodone-Acetaminophen 5-325] 1 tablet PO Q6HR PRN PRN Reason: Pain - Follow Up or Referral - Forms/Instructions Exam - Constitutional Vitals: Period Temp Pulse Resp BP Sys/Tracey Pulse Ox Last 24 Hr 97.0 F-98.8 F 52-94 15-20 88-127/42-80 92-100 Discharge Results Procedures and tests throughout hospitalization: Pending Orders 12/28/16 13:10 Occult Blood, Stool Routine 12/28/16 18:36 Wound Culture Routine 12/30/16 13:20 Occult Blood, Stool Routine Labs on day of discharge: Labs from last 24 hours 01/03/17 01/03/17 01/02/17 11:41 07:26 20:28 POC Glucose 270 H 141 H 339 H 01/02/17 16:00 POC Glucose 269 H DS: Provider Date of admission: 12/26/16 16:53 Primary care physician: Marcellus Gomez MD Attending physician on admission: Yfn Espana MD Consults: 12/26/16 21:01 Consult to Pharmacy [CONS] Routine Reason for Pharmacy Consult: Adjust Meds Renal Funct 12/27/16 04:07 Consult to Pastoral Services [CONS] Routine Comment: Pastoral Screen: Request [employer] 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 Visit Pastoral Screen Source of Request: Patient 12/27/16 09:20 Consult to Physician [CONS] Routine Consulting Provider: William Campbell Comment: kiana Person Notified: JEN Date Notified: 12/27/16 Time Notified: 09:40 12/28/16 18:36 Consult to Wound Care - [place] [CONS] Routine Reason for Wound Care: Wound Care Management 12/29/16 13:44 Consult to Physical Therapy [CONS] Routine Reason for Physical Therapy: Evaluate and Treat 12/29/16 14:11 Consult to Physician [CONS] Routine Consulting Provider: Milad Paez Comment: Consult to Specialist Group: Gastroenterology When should Consulting Provider be notified: Now Person Notified: Dr rUban Date Notified: 12/29/16 Time Notified: 14:34 01/01/17 11:35 Consult to Case Mgmt/Social Srvs [CONS] Routine Reason for Case Mgmt/Social Srvs: Discharge Planning Consult Comment: for possilbe swing bed Discharging clinician: Chad Tucker MD Expected date of discharge: 01/03/17
== END 2017-01-03 18:24 | DRG 602 ==
LOC: EDUNIT# → N.ED 14:01 → SUATTDRO 16:53 → N.EDINP 16:53 → N.TELES 19:56
PROVIDERS: ADMIT Internal Medicine Cardiovascular Disease; ATTEND Internal Medicine Infectious Disease